=== PATIENT | male | born 1960 ===

== ENCOUNTER → 2020-09-15 12:45 | Outpatient (BNVA) | payer MEDICAID, SELFPAY | PROVIDERS: PCP Family Medicine; Referring Provider Family Medicine; Visit Provider Internal Medicine | DX: R07.2 Precordial pain (principal) | CPT/HCPCS: 93005; 99202 ==

== ENCOUNTER → 2020-09-18 10:59 | Outpatient (BNVA) | payer MEDICAID, SELFPAY | PROVIDERS: PCP Family Medicine; Referring Provider Family Medicine; Visit Provider Nurse Practitioner | DX: Z76.89 Persons encountering health services in other specified circumstances (principal) ==

== ENCOUNTER 2020-09-22 08:41 | Outpatient (REF) | payer MEDICAID, SELFPAY ==
[2020-09-22 09:29] LABS: MANUAL DIFF FLAG NO
[2020-09-22 09:30] LABS: Basophils Percent Auto 0.5 % (0-2); Eosinophils Absolute Auto 0.1 X10*3/uL (0.0-0.4); Hematocrit 47.9 % (42-52); Hemoglobin 15.6 g/dl (14.0-18.0); Imm Gran Abs Auto 0.02 X10*3/uL (0.00-0.03); Imm Gran Pct Auto 0.3 % (0.0-0.4); Lymphocytes Absolute Auto 2.3 X10*3/uL (1.2-4.9); Lymphocytes Percent Auto 35.8 % (20-40); Mean Corpuscular HGB Conc 32.6 g/dl (31.0-36.0); Mean Corpuscular Hemoglobin 30.1 pg (27.0-33.0); Mean Corpuscular Volume 92.5 fL (80-98); Mean Platelet Volume 12.7 fL (9.4-12.4); Monocytes Absolute Auto 0.6 X10*3/uL (0.1-1.2); Neutrophils Absolute Auto 3.4 X10*3/uL (2.0-8.3); Neutrophils Percent Auto 52.4 % (45-73); Platelet Count 176 X10*3/uL (160-400); Red Blood Count 5.18 X10*6/uL (4.60-5.80); White Blood Count 6.5 X10*3/uL (4.8-10.8)
[2020-09-22 09:51] LABS: Estimated Average Glucose 194 mg/dL; Hemoglobin A1c % 8.4 %
[2020-09-22 09:53] LABS: Ethanol < 10 mg/dL
[2020-09-22 09:56] LABS: Alanine Aminotransferase 70 U/L (0-40); Albumin Level 4.2 g/dL (3.5-5.0); Alkaline Phosphatase 61 U/L (39-117); Ammonia 24 umol/L (13-55); Anion Gap 11 (12-20); Aspartate Amino Transferase 46 U/L (5-37); Bilirubin Direct 0.3 mg/dL (0.0-0.5); Bilirubin Total 0.8 mg/dL (0.0-1.0); Blood Urea Nitrogen 18 mg/dL (9-16); Calcium 9.5 mg/dL (8.4-10.2); Carbon Dioxide 35 mmol/L (22-29); Chloride 97 mmol/L (96-108); Cholesterol 196 mg/dL; Estimated Glomerular Filt Rate 54; Glucose Random 199 mg/dL (60-115); HDL Cholesterol 36 mg/dL; Iron 93 mcg/dL (45-160); LDL Cholesterol Calculated 118 mg/dl; Percent Iron Saturation 25 % (15-50); Potassium 4.8 mmol/l (3.3-5.1); Sodium 138 mmol/L (135-145); Total Iron Binding Capacity 369 mcg/dL (228-428); Total Protein 8.4 g/dL (6.5-8.0); Triglycerides 214 mg/dL; Unsaturated Iron Binding 276 ug/dL
[2020-09-22 09:57] LABS: Alanine Aminotransferase 70 U/L (0-40); Albumin Level 4.2 g/dL (3.5-5.0); Alkaline Phosphatase 59 U/L (39-117); Anion Gap 12 (12-20); Aspartate Amino Transferase 45 U/L (5-37); Bilirubin Total 0.8 mg/dL (0.0-1.0); Blood Urea Nitrogen 18 mg/dL (9-16); Calcium 9.6 mg/dL (8.4-10.2); Carbon Dioxide 34 mmol/L (22-29); Chloride 97 mmol/L (96-108); Estimated Glomerular Filt Rate 54; Gamma Glutamyl Transpeptidase 96 U/L (11-51); Glucose Random 195 mg/dL (60-115); Potassium 4.8 mmol/l (3.3-5.1); Sodium 138 mmol/L (135-145); Total Protein 8.2 g/dL (6.5-8.0)
[2020-09-22 10:16] LABS: Free T4 (Free Thyroxine) 0.99 ng/dL (0.71-1.85); Vitamin D 25-OH Total 58.9 ng/mL (>30)
[2020-09-22 10:21] LABS: Ferritin 91 ng/mL (20-250)
[2020-09-22 10:29] LABS: Folate 15.6 ng/mL (> or = 4.0); Vitamin B12 410 pg/mL (200-900)
[2020-09-22 11:22] LABS: Creatinine Urine 373.94 mg/dL; Microalbum/Creatinine Ratio Ur 64.7 ug/mg cr
[2020-09-25 13:41] LABS: Anti Nuclear Antibody Pattern Nuclear, Speckled; Anti Nuclear Antibody Screen POSITIVE (NEGATIVE); Anti Nuclear Antibody Titer 1:40 titer
[2020-09-27 12:12] LABS: Smooth Muscle Antibody <20 U (<20)
[2020-09-28 14:47] LABS: Mitochondrial Antibodies NEGATIVE (NEGATIVE)
== END 2020-09-22 08:42 | disposition home or self-care (01) ==
LOC: HO.LAB 08:41
PROVIDERS: Absent Provider Nurse Practitioner; PCP Family Medicine; Visit Provider Family Medicine
DX: K59.00 Constipation, unspecified (principal); K76.0 Fatty (change of) liver, not elsewhere classified; F10.10 Alcohol abuse, uncomplicated; E11.22 Type 2 diabetes mellitus with diabetic chronic kidney disease; N18.9 Chronic kidney disease, unspecified; E78.5 Hyperlipidemia, unspecified; I10 Essential (primary) hypertension
CPT/HCPCS: 36415; 80048; 80053; 80061; 80076; 80320; 82043; 82105; 82140; 82248; 82306; 82607; 82728; 82746; 82977; 83036; 83540; 84439; 85025; 86038; 86039; 86255; 86256

== ENCOUNTER → 2020-10-07 08:23 | Outpatient (REF) | payer OTHER, MEDICAID, SELFPAY ==
--- NOTE | 2020-10-07 08:29 | CA_ITS ---
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 The visually estimated ejection fraction is between 60-65%. - No obvious valvular pathology seen on this study. Findings Left Ventricle Normal left ventricular cavity size. There is normal left ventricular wall thickness. The left ventricular systolic function is normal. The visually estimated ejection fraction is between 60-65%. There is no evidence of regional wall motion abnormalities. Diastolic function is normal for age. Right Ventricle Normal right ventricular cavity size and systolic function. Atria The left atrium is normal in size. The right atrium is normal in size. Aortic Valve There is a normal trileaflet aortic valve. There is no aortic valve stenosis. There is no aortic valve regurgitation. Mitral Valve The mitral valve appears normal. There is trace mitral valve regurgitation. There is no mitral valve stenosis. Pulmonic Valve The pulmonic valve was not well visualized. Tricuspid Valve Normal tricuspid valve structure. There is trace tricuspid valve regurgitation. The pulmonary artery systolic pressure is normal. Great Vessels The aortic annulus, sinuses of valsalva, and asc aorta are normal in size. Venous The inferior vena cava is normal in size and collapses greater than 50% with inspiration. Pericardium/Pleural There is no evidence of pericardial effusion. Prior Study Comparison No significant change compared to prior study dated: 05/22/2014. Recommendations, Care & Conclusions No obvious valvular pathology seen on this study. Measurements 2D Linear Measurements RVIDd: 3.29 RVIDd Index: 1.71 IVSd: 0.67 0.6-0.9/0.6-1.0 cm LVIDd: 4.99 3.9-5.3/4.2-5.9 cm LVIDd Index: 2.60 2.4-3.2/2.2-3.1 cm/m2 LVIDs: 3.24 2.0-3.6 cm LVPWd: 1.02 0.7-1.1 cm Ao Root: 3.00 2.1-3.5 cm LA Diam: 4.00 2.7-3.8/3.0-4.0 cm LAIDs Index: 2.08 1.5-2.3 cm/m2 LV Mass: 181.20 67-162/88-224 g LV Mass Index: 94.37 43-95/49-115 g/m2 LVOT Diam: 2.20 3.0+(-)1.3 cm 2D Systolic Function EF 4C: 66.20 >55% EF 2C: 58.40 >55% EF BiP: 63.50 >55% Mitral Valve MV Pk E: 0.75 MV PK A: 1.01 MV Decel Time: 197.00 E/A: 0.70 E'Lateral: 9.79 E'Medial: 7.40 E/E' Med: 10.10 E/E' Lat: 7.60 Aortic Valve AoV Pk Kartik: 1.45 AoV Mn Kartik: 1.11 AoV VTI: 0.29 AoV Pk Grad: 8.00 Aov Mn Grad: 5.00 SHYAM Cont.VTI: 2.88 LVOT LVOT Pk Kartik: 1.31 LVOT Mn Kartik: 0.81 LVOT VTI: 0.22 LVOT Pk Grad: 7.00 LVOT Mn Grad: 3.00 LVOT Diam: 2.20 LVOT Area: 3.80 Diastolic Function MV Pk E: 0.75 MV Pk A: 1.01 E/A: 0.70 E'Medial: 7.40 E/E' Med: 10.10 E' Laterial: 9.79 E/E' Lat: 7.60 Tricuspid Valve TR Pk Kartik: 2.71 TR Pk Grad: 29.00 RA Press: 3.00 RVSP: 32.00 Great Vessels Aorta Ao Root-2D: 3.00 2.0-3.7 cm Ao Asc: 2.90 2.1-3.4 cm Ao Arch: 2.80 Updated in Other Vendor System with Status of Final Danie Rosas MD electronically signed on 10/08/2020 12:54:32 PM with status of Final
--- NOTE | 2020-10-07 09:30 | CA_ITS ---
Acquisition Time: 2020-10-07 10:59:59 Total Exercise Time: 00:05:59 Test Indications: Chest Pain Medications: AMLODIPINE ASA ATORVASTATIN BACLOFEN HCTZ HYDROXIZINE METOPROLOL OMEPRAZOLE Protocol: JANEL Max HR: 142 BPM 88% of Pred: 161 BPM Max BP: 140/076 mmHG Max Work Load: 7.0 METS Exercise stress test using Janel protocol, total of 5 min 59 sec. METS 7.0, MHR up to 142, and MAPHR 88%. Pt tolerated well, denies any anginal sx. EKG with no arrhythmias, no ischemic changes. Nuclear images to follow. Normotensive response to exercise. Test reviewed with Dr. Rosas. Referred By: Danie Rosas Overread By: Lucia Kelley
--- NOTE | 2020-10-07 09:54 | NM_ITS ---
Exercise Myocardial perfusion study Indication: Precordial chest pain Technique: The patient was brought in for an exercise perfusion study on 06/2020. Patient performed exercise as per Demetrio protocol and was injected 25 mCi of sestamibi was given intravenously one target HR was achieved. Images were obtained using the SPECT gamma camera interlaced with the gating device. Images were obtained in supine position. Resting perfusion study was performed on 10/08/2020. Patient was administered 25 mCi of sestamibi intravenously at rest. Images were then obtained in supine position. Images obtained with and without CT attenuation. Total DLP 57 mGy-cm. Images were processed with the software and compared side to side in short axis, horizontal long axis and vertical long axis views. Findings: The stress perfusion study showed non attenuated images show normal uptake of radiotracer in all segments of LV myocardium. Attenuation corrected images show mildly reduced uptake in the apex of the LV myocardium.. The gated study shows normal LV systolic function with calculated LVEF of 74%. LV cavity is normal in size. The gated study shows normal systolic wall thickening and contraction of all segments. There is no transient ischemic dilation. Resting study shows non attenuated images show normal uptake of radiotracer in all segments of LV myocardium. Gating at rest reveals normal systolic wall motion with ejection fraction at 64%. The findings are consistent with normal myocardial perfusion. NM/NM cardiolite stress test Impression: 1. Normal myocardial perfusion 2. Gated LVEF is 64% 3. Transient ischemic dilatation not present Stress EKG is negative for ischemia
== END ==
LOC: HO.CARD 08:23
PROVIDERS: PCP Family Medicine; Visit Provider Internal Medicine
DX: R07.2 Precordial pain (principal)
CPT/HCPCS: 78452; 93017; 93306; A9500

== ENCOUNTER → 2020-10-09 11:10 | Outpatient (BNVA) | payer MEDICAID, SELFPAY | PROVIDERS: PCP Family Medicine; Visit Provider Nurse Practitioner | DX: Z76.89 Persons encountering health services in other specified circumstances (principal) ==

== ENCOUNTER 2020-10-12 12:37 | Emergency (ER) | payer OTHER, MEDICAID, SELFPAY ==
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
[2020-10-12 13:37] VITALS: BP 122/77; PULSE 66; RESP 16; TEMP 36.6; O2SAT 97; BMI 28.1
== END 2020-10-12 15:55 | disposition home or self-care (01) ==
PROVIDERS: Emergency Provider Emergency Medicine; PCP Family Medicine
DX: S13.4XXA Sprain of ligaments of cervical spine, initial encounter (principal); S16.1XXA Strain of muscle, fascia and tendon at neck level, initial encounter; V43.52XA Car driver injured in collision with other type car in traffic accident, initial encounter; E11.22 Type 2 diabetes mellitus with diabetic chronic kidney disease; I12.9 Hypertensive chronic kidney disease with stage 1 through stage 4 chronic kidney disease, or unspecified chronic kidney disease; N18.9 Chronic kidney disease, unspecified; Z79.899 Other long term (current) drug therapy; Y93.89 Activity, other specified; Y92.414 Local residential or business street as the place of occurrence of the external cause; Y99.9 Unspecified external cause status
CPT/HCPCS: 70450; 72125; 99283; 99284

== ENCOUNTER 2020-10-14 12:05 | Outpatient (REF) | payer MEDICAID, SELFPAY ==
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
== END 2020-10-14 12:06 | disposition home or self-care (01) ==
LOC: HO.XRAY 12:05
PROVIDERS: PCP Family Medicine; Visit Provider Chiropractor
DX: M54.5 Low back pain (principal); V89.2XXD Person injured in unspecified motor-vehicle accident, traffic, subsequent encounter
CPT/HCPCS: 72100

== ENCOUNTER 2020-11-30 09:45 | Outpatient (REF) | payer MEDICAID, SELFPAY | END 2020-11-30 09:46 | disposition home or self-care (01) | LOC: HO.LAB 09:45 | PROVIDERS: PCP Family Medicine; Visit Provider Internal Medicine | DX: Z20.822 Contact with and (suspected) exposure to COVID-19 (principal) | CPT/HCPCS: 36415; C9803; U0003; U0005 ==

== ENCOUNTER 2020-12-14 09:26 | Outpatient (REF) | payer MEDICAID, SELFPAY | END 2020-12-14 09:27 | disposition home or self-care (01) | LOC: HO.LAB 09:26 | PROVIDERS: PCP Family Medicine; Visit Provider Internal Medicine | DX: Z20.822 Contact with and (suspected) exposure to COVID-19 (principal) | CPT/HCPCS: 36415; C9803; U0003; U0005 ==

== ENCOUNTER 2021-04-27 08:27 | Emergency (ER) | payer MEDICAID, SELFPAY ==
--- NOTE | ~2021-04-27 | CT_ITS ---
EXAMINATION: CT CHEST WITHOUT CONTRAST CLINICAL INFORMATION: Abnormal chest x-ray. Rule out postobstructive mass. COMPARISON: Previous chest x-ray from earlier the same day and chest CTA August 2014 TECHNIQUE: Multidetector volumetric CT imaging of the chest was done. Axial MIP volume rendering provided. Sagittal and coronal reformatted images were obtained. Images limited due to artifact from respiratory motion. This CT examination was performed using dose optimization techniques as appropriate, variously including the following: *Automated exposure control *Adjustment of mA and/or kV according to patient size (this includes techniques or standardized protocols for targeted exams where dose is matched to indication/reason for exam; i.e. extremities or head) *Use of iterative reconstruction technique DLP: 254 mGy-cm FINDINGS: LUNGS: There is consolidation with air bronchograms seen in the right upper lobe probably representing pneumonia. No endobronchial or endotracheal lesion is seen. MEDIASTINUM: There are small mediastinal lymph nodes. No enlarged lymph nodes are seen. There is an esophageal hernia. The mediastinum is otherwise normal. PLEURA: There is a trace right pleural effusion. There is no left pleural effusion. AXILLA: No lymphadenopathy. UPPER ABDOMEN: There is a gallstone in the gallbladder. The spleen is not completely imaged but appears prominent. OSSEOUS STRUCTURES: Unremarkable. CT/CT chest wo con IMPRESSION: Right upper lobe pneumonia. No mass seen. Chest x-ray follow-up following treatment to ensure resolution recommended.
--- NOTE | ~2021-04-27 | XR_ITS ---
EXAMINATION: XR CHEST CLINICAL INFORMATION: Fever and pain COMPARISON: Previous chest x-ray July 2019 TECHNIQUE: 2 views of the chest were obtained. FINDINGS: The cardiac and mediastinal contours are normal. There is airspace disease in the right upper lobe probably representing pneumonia. The lungs are otherwise clear. There is no pleural effusion or pneumothorax. Bony structures are unremarkable. XR/XR chest 2V IMPRESSION: Right upper lobe pneumonia. Follow-up chest x-ray following treatment to ensure resolution recommended.
[2021-04-27 08:44] VITALS: BP 154/74; PULSE 92; RESP 16; TEMP 37.3; O2SAT 97
[2021-04-27 08:50] VITALS: BP 126/75; PULSE 85; RESP 17; TEMP 39.2; O2SAT 99
[2021-04-27 09:04] VITALS: BP 136/79; PULSE 84; RESP 16; TEMP 38.6; O2SAT 100; BMI 24.8
--- NOTE | 2021-04-27 09:50 | ED.GENADULT ---
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 No abdominal pain, cough, shortness of breath, chest pain, neck pain, rash. No sick contact. No recent travel. Received 5 [employer] 19 vaccine x2 in february Related Data Home Medications Medication Instructions Recorded Confirmed acetaminophen 500 mg tablet 1,000 mg PO Q6H PRN 09/15/20 09/15/20 acetaminophen 650 mg 650 mg PO Q8H 09/15/20 09/15/20 tablet,extended release amlodipine 10 mg tablet 10 mg PO DAILY 09/15/20 09/15/20 aspirin 81 mg tablet,delayed 81 mg PO DAILY 09/15/20 09/15/20 release atorvastatin 80 mg tablet 80 mg PO DAILY 09/15/20 09/15/20 baclofen 10 mg tablet 10 mg PO TID 09/15/20 09/15/20 baclofen 10 mg tablet 10 mg PO TID 09/15/20 09/15/20 cholecalciferol (vitamin D3) 25 25 mcg PO DAILY 09/15/20 09/15/20 mcg (1,000 unit) capsule clonazepam 0.5 mg tablet 0.5 mg PO BID 09/15/20 09/15/20 clotrimazole 1 % topical cream 1 applic TOPICAL BID 09/15/20 09/15/20 docusate sodium 100 mg capsule 100 mg PO BID 09/15/20 09/18/20 ferrous sulfate 325 mg (65 mg 325 mg PO DAILY 09/15/20 09/15/20 iron) tablet fluoxetine 20 mg capsule 60 mg PO DAILY cap 09/15/20 09/15/20 gabapentin 100 mg capsule 100 mg PO DAILY 09/15/20 09/15/20 hydrochlorothiazide 25 mg tablet 25 mg PO DAILY 09/15/20 09/15/20 hydroxyzine HCl 25 mg tablet 25 mg PO QID PRN 09/15/20 09/15/20 insulin glargine 100 unit/mL (3 30 unit SUBCUT DAILY ml 09/15/20 09/15/20 mL) subcutaneous pen metoprolol succinate 200 mg 200 mg PO DAILY 09/15/20 09/15/20 tablet,extended release 24 hr olanzapine 5 mg tablet 5 mg PO DAILY 09/15/20 09/15/20 repaglinide 1 mg tablet 1 mg PO TID 09/15/20 09/15/20 sildenafil 50 mg tablet 25 mg PO DAILY PRN tab 09/15/20 09/15/20 tamsulosin 0.4 mg capsule 0.4 mg PO DAILY 09/15/20 09/15/20 Previous Rx's Medication Instructions Recorded acetaminophen [Tylenol Arthritis 650 mg PO Q8H PRN #30 tab 10/12/20 Pain] ibuprofen 600 mg PO Q8H PRN #15 tab 10/12/20 lidocaine [Lidoderm] 1 patch TOPICAL DAILY #15 ea 10/12/20 omeprazole 40 mg capsule,delayed 40 mg PO BID #60 cap 11/16/20 release linaclotide 72 mcg capsule 72 mcg PO QAM #30 cap 02/04/21 azithromycin 250 mg PO DAILY #4 tab 04/27/21 cefpodoxime 100 mg PO BID #14 tab 04/27/21 Allergies Allergy/AdvReac Type Severity Reaction Status Date / Time No Known Allergies Allergy Verified 10/09/20 11:11 [No Known Allergies*] Review of Systems Review of Systems: Yes all other systems are reviewed and are negative Constitutional: Constitutional: Reports no additional constitutional complaints, Denies body ache(s), Denies chills, Denies fever(s), Denies headache(s) and Denies weakness Eyes: Eyes: Reports no additional eye complaints and Denies change in vision ENT: Reports system reviewed and no additional complaints, except as documented, Denies dizziness, Denies headache(s), Denies nasal congestion, Denies nasal discharge and Denies neck pain Cardiovascular: Cardiovascular: Reports no additional cardiovascular complaints, Denies chest pain, Denies leg edema and Denies dyspnea Respiratory: Respiratory: Reports no additional respiratory complaints, Denies cough and Denies dyspnea Gastrointestinal: Gastrointestinal: Reports no additional gastrointestinal complaints, Denies abdominal pain, Denies diarrhea, Denies nausea and Denies vomiting Genitourinary: Genitourinary: Denies urinary incontinence Musculoskeletal: Musculoskeletal: Reports no additional musculoskeletal complaints, Denies back pain, Denies arthralgias, Denies joint swelling, Denies neck pain, Denies numbness and Denies tingling Integumentary/Breasts: Skin/Breast: Reports system reviewed and no additional complaints, except as docu and Denies rash Neurologic: Reports system reviewed and no additional complaints, except as documented, Denies Abnormal speech present, Denies dizziness, Denies headache(s), Denies numbness, Denies tingling and Denies weakness PMF Past Medical History Attestation statement: The following information was validated with the patient. Source: old records reviewed and nursing notes reviewed Medical History CKD (chronic kidney disease) Depression Essential hypertension Hyperlipidemia, unspecified MICH (obstructive sleep apnea) Substance abuse Syphilis Type 2 diabetes mellitus with unspecified complications Surgical History Hx of colonoscopy Hx of foot surgery Family History Family History Mother Diabetes CAD (coronary artery disease) Hypertension Hyperlipidemia MICH (obstructive sleep apnea) Heart problem Father Alzheimer disease Depression Maternal Grandmother Heart problem Social History Social History Alcohol intake: current Alcohol intake frequency: does not drink Advance Directives: No Advance Directives Information Provided: No Physical Exam Vital Signs: Vital Signs: Last Vital Signs Temp 99.8 F 04/27/21 12:00 Pulse 78 04/27/21 12:00 Resp 16 04/27/21 12:00 BP 128/64 04/27/21 12:00 Pulse Ox 100 04/27/21 12:00 Body Mass Index 24.8 Const: General: cooperative, healthy appearing, comfortable and no acute distress Orientation/consciousness: patient oriented x3 Limitations: no limitations HENMT: Head: Yes normal to inspection Ears: hearing grossly normal bilaterally General nose exam: Normal external nose present Face and sinus: Yes normal facial exam Mouth: Normal oral and palatal mucosa present Throat: Yes posterior oropharynx normal Eyes: General: appearance normal, both eyes and all related structures Pupils: Equal, round and reactive pupils present Neck: Neck: Yes normal visual inspection Chest: Chest palpation & inspection: normal inspection of the chest Resp: Effort & Inspection: normal respiratory effort Auscultation: clear to auscultation bilaterally Cardio: Rate: regular rate Rhythm: regular rhythm Peripheral pulses: Peripheral pulses 2+ throughout GI: Inspection: Yes normal to inspection Palpation (GI): Soft to palpation and nontender Auscultation: normal bowel sounds Back/Spine/Pelvis: Thoracic/Lumbar Spine: thoracic and lumbar spine normal to inspection Skin: General skin exam: no rashes or lesions noted Neuro: General: patient oriented x3, no focal motor deficits and normal sensation to monofilament Cranial nerves: Yes Equal, round and reactive pupils present Cognition (Neuro): normal cognition Speech: No Abnormal speech present Gait exam (Neuro): Normal gait present Motor exam (neuro): 5/5 motor strength present throughout Extrem: General: Yes normal to inspection Course Course Course Narrative: 60-year-old male here with flu-like symptoms with fever of 102 x3 days. On arrival he does have a fever but otherwise is well-appearing exam is benign. Likely viral cause. Will check labs, chest x-ray, EKG, COVID screen. will place PIV and give normal saline bolus and antipyretic and reassess. 0950- x-ray consistent with a right upper lobe pneumonia. At this time infection is suspected. Antibiotics ordered. Discussed this with attending Dr. Munoz. Patient does have a history of alcohol abuse. Consider aspiration pneumonia. However could also consider postobstructive mass and so a CT of the chest was ordered - CT chest confirms right upper lobe pneumonia with no obvious mass. Patient ambulated in the emergency department with oxygen saturation >99%. he has no leukocytosis and a normal lactic acid. Additional labs show mild hyponatremia, mild hypochloremia, mild hypokalemia. He received normal saline and p.o. potassium. I recommended rechecking his chemistries but the patient declined this and would like to go home. His fever improved with antipyretic and normal saline. Reviewed worrisome signs and symptoms such as worsening shortness of breath, cough, fever which is not responding Motrin or Tylenol when to return to the emergency department. Comfortable discharge home. Medical Decision Making Medical Records Medical records reviewed: Yes I reviewed the patient's medical records. Lab Data Lab results reviewed: Yes I reviewed the patient's lab results. Result diagrams: 04/27/21 09:48 04/27/21 09:48 Labs: Lab Results 04/27/21 04/27/21 04/27/21 Range/Units 09:47 09:48 09:48 WBC 6.3 (4.8-10.8) X10*3/uL RBC 4.30 L (4.60-5.80) X10*6/uL Hgb 13.0 L (14.0-18.0) g/dl Hct 38.7 L (42-52) % MCV 90.0 (80-98) fL MCH 30.2 (27.0-33.0) pg MCHC 33.6 (31.0-36.0) g/dl RDW 14.7 (11.0-16.0) % Plt Count 91 L D (160-400) X10*3/uL MPV 12.1 (9.4-12.4) fL Immature Gran % (Auto) 0.5 H (0.0-0.4) % Neut % (Auto) 76.4 H (45-73) % Lymph % (Auto) 10.7 L (20-40) % [place] % (Auto) 12.2 H (2-11) % Eos % (Auto) 0.0 (0-4) % Baso % (Auto) 0.2 (0-2) % Lymph # (Auto) 0.7 L (1.2-4.9) X10*3/uL [place] # (Auto) 0.8 (0.1-1.2) X10*3/uL Eos # (Auto) 0.0 (0.0-0.4) X10*3/uL Baso # (Auto) 0.0 (0.0-0.2) X10*3/uL Abs Immat Gran (auto) 0.03 (0.00-0.03) X10*3/uL Absolute Neuts (auto) 4.8 (2.0-8.3) X10*3/uL Absolute Nucleated RBC 0.000 (0.0-0.012) X10*3/uL Nucleated RBC % (auto) 0.0 (0.0-0.2) /100WBC Hold Blue Top SEE NOTE Sodium (135-145) mmol/L Potassium (3.3-5.1) mmol/L Chloride (96-108) mmol/L Carbon Dioxide (22-29) mmol/L Anion Gap (12-20) BUN (9-16) mg/dL Creatinine (0.5-1.4) mg/dL Estim Creat Clear Calc Estimated GFR Random Glucose (60-115) mg/dL Lactic Acid (0.5-2.0) mmol/L Calcium (8.4-10.2) mg/dL Magnesium (1.6-2.6) mg/dL Total Bilirubin (0.0-1.0) mg/dL Direct Bilirubin (0.0-0.5) mg/dL AST (5-37) U/L ALT (0-40) U/L Alkaline Phosphatase (39-117) U/L Total Protein (6.5-8.0) g/dL Albumin (3.5-5.0) g/dL Triglycerides Cholesterol LDL Cholesterol, Calc HDL Cholesterol Lipase (8-78) U/L Urine Color Urine Appearance Urine pH (5.0-8.0) Ur Specific [place] (1.005-1.025) Urine Protein (NEG-TRACE) MG/DL Urine Glucose (UA) (NEG) MG/DL Urine Ketones (NEG) MG/DL Urine Blood (NEG) Urine Nitrite (NEG) Ur Leukocyte Esterase (NEG) Urine RBC (0) /HPF Urine WBC (0-4) /HPF Ur Squamous Epith Cells /LPF Urine Bacteria /LPF Urine Mucus /LPF COVID-19 ([facility]) Negative (Negative) COVID-19 Clin Com See Note 04/27/21 04/27/21 04/27/21 Range/Units 09:48 09:49 09:50 WBC (4.8-10.8) X10*3/uL RBC (4.60-5.80) X10*6/uL Hgb (14.0-18.0) g/dl Hct (42-52) % MCV (80-98) fL MCH (27.0-33.0) pg MCHC (31.0-36.0) g/dl RDW (11.0-16.0) % Plt Count (160-400) X10*3/uL MPV (9.4-12.4) fL Immature Gran % (Auto) (0.0-0.4) % Neut % (Auto) (45-73) % Lymph % (Auto) (20-40) % [place] % (Auto) (2-11) % Eos % (Auto) (0-4) % Baso % (Auto) (0-2) % Lymph # (Auto) (1.2-4.9) X10*3/uL [place] # (Auto) (0.1-1.2) X10*3/uL Eos # (Auto) (0.0-0.4) X10*3/uL Baso # (Auto) (0.0-0.2) X10*3/uL Abs Immat Gran (auto) (0.00-0.03) X10*3/uL Absolute Neuts (auto) (2.0-8.3) X10*3/uL Absolute Nucleated RBC (0.0-0.012) X10*3/uL Nucleated RBC % (auto) (0.0-0.2) /100WBC Hold Blue Top Sodium 129 L (135-145) mmol/L Potassium 3.1 L (3.3-5.1) mmol/L Chloride 93 L (96-108) mmol/L Carbon Dioxide 26 (22-29) mmol/L Anion Gap 13 (12-20) BUN 15 (9-16) mg/dL Creatinine 1.28 (0.5-1.4) mg/dL Estim Creat Clear Calc 58.0 Estimated GFR 58 Random Glucose 261 H (60-115) mg/dL Lactic Acid 1.4 (0.5-2.0) mmol/L Calcium 8.4 D (8.4-10.2) mg/dL Magnesium 1.9 (1.6-2.6) mg/dL Total Bilirubin 1.5 H (0.0-1.0) mg/dL Direct Bilirubin 0.6 H (0.0-0.5) mg/dL AST 32 (5-37) U/L ALT 18 (0-40) U/L Alkaline Phosphatase 50 (39-117) U/L Total Protein 6.9 (6.5-8.0) g/dL Albumin 3.7 (3.5-5.0) g/dL Triglycerides Cancelled Cholesterol Cancelled LDL Cholesterol, Calc Cancelled HDL Cholesterol Cancelled Lipase 29 (8-78) U/L Urine Color YELLOW Urine Appearance CLEAR Urine pH 6.0 (5.0-8.0) Ur Specific [place] 1.025 (1.005-1.025) Urine Protein 2+ H (NEG-TRACE) MG/DL Urine Glucose (UA) >=1000 H (NEG) MG/DL Urine Ketones 15 (NEG) MG/DL Urine Blood 2+ H (NEG) Urine Nitrite NEG (NEG) Ur Leukocyte Esterase NEG (NEG) Urine RBC 5-9 H (0) /HPF Urine WBC 0 (0-4) /HPF Ur Squamous Epith Cells NONE /LPF Urine Bacteria NONE /LPF Urine Mucus 2+ /LPF COVID-19 ([facility]) (Negative) COVID-19 Clin Com Imaging Data Chest x-ray: Attestation: I personally reviewed and interpreted this imaging study as follows: Radiologist's impression: [address] [id number] ReportSigned Patient: Pablito WildeMR#: [id number]: [id number]:[id number]/Sex: 60 / MADM Date: 04/27/21Loc: HO.EDAttending Dr: Ordering Physician: VIJI CROWELL NP Date of Service: 04/27/21 Procedure(s): XR chest 2V Accession Number(s): [id number] cc: VIJI CROWELL NP~ EXAMINATION: XR CHEST CLINICAL INFORMATION: Fever and pain COMPARISON: Previous chest x-ray July 2019 TECHNIQUE: 2 views of the chest were obtained. FINDINGS: The cardiac and mediastinal contours are normal. There is airspace disease in the right upper lobe probably representing pneumonia. The lungs are otherwise clear. There is no pleural effusion or pneumothorax. Bony structures are unremarkable. XR/XR chest 2V IMPRESSION: Right upper lobe pneumonia. Follow-up chest x-ray following treatment to ensure resolution recommended. CT scan - chest: Attestation: I personally reviewed and interpreted this imaging study as follows: Radiologist's impression: FINDINGS: LUNGS: There is consolidation with air bronchograms seen in the right upper lobe probably representing pneumonia. No endobronchial or endotracheal lesion is seen. MEDIASTINUM: There are small mediastinal lymph nodes. No enlarged lymph nodes are seen. There is an esophageal hernia. The mediastinum is otherwise normal. PLEURA: There is a trace right pleural effusion. There is no left pleural effusion. AXILLA: No lymphadenopathy. UPPER ABDOMEN: There is a gallstone in the gallbladder. The spleen is not completely imaged but appears prominent. OSSEOUS STRUCTURES: Unremarkable. CT/CT chest wo con IMPRESSION: Right upper lobe pneumonia. No mass seen. Chest x-ray follow-up following treatment to ensure resolution recommended. Discharge Plan Discharge Clinical Impression: Pneumonia Patient Disposition: Home, Self-Care Instructions: Bacterial Pneumonia (ED) Additional Instructions: Start your antibiotics tomorrow increase fluids, rest Motrin or Tylenol for pain or fever return for worsening symptoms Prescriptions: New azithromycin 250 mg tablet 250 mg PO DAILY Qty: 4 RF: 0 cefpodoxime 100 mg tablet 100 mg PO BID Qty: 14 RF: 0 No Action omeprazole 40 mg capsule,delayed release(DR/EC) 40 mg PO BID Qty: 60 RF: 6 linaclotide [Linzess] 72 mcg capsule 72 mcg PO QAM Qty: 30 RF: 2 ibuprofen 600 mg tablet 600 mg PO Q8H PRN (Reason: pain) Qty: 15 RF: 0 acetaminophen [Tylenol Arthritis Pain] 650 mg tablet extended release 650 mg PO Q8H PRN (Reason: pain) Qty: 30 RF: 0 lidocaine [Lidoderm] 5 % adhesive patch,medicated 1 patch topical DAILY Qty: 15 RF: 0 olanzapine 5 mg tablet 5 mg PO DAILY RF: 0 clonazepam [Klonopin] 0.5 mg tablet 0.5 mg PO BID RF: 0 hydroxyzine HCl 25 mg tablet 25 mg PO QID PRNRF: 0 fluoxetine 20 mg capsule 60 mg PO DAILY RF: 0 sildenafil [Viagra] 50 mg tablet 25 mg PO DAILY PRNRF: 0 atorvastatin [Lipitor] 80 mg tablet 80 mg PO DAILY RF: 0 acetaminophen 650 mg tablet extended release 650 mg PO Q8H RF: 0 repaglinide [Prandin] 1 mg tablet 1 mg PO TID RF: 0 tamsulosin [Flomax] 0.4 mg capsule 0.4 mg PO DAILY RF: 0 gabapentin 100 mg capsule 100 mg PO DAILY RF: 0 cholecalciferol (vitamin D3) 25 mcg (1,000 unit) capsule 25 mcg PO DAILY RF: 0 acetaminophen [Mapap Extra Strength] 500 mg tablet 1,000 mg PO Q6H PRNRF: 0 baclofen 10 mg tablet 10 mg PO TID RF: 0 baclofen 10 mg tablet 10 mg PO TID RF: 0 clotrimazole 1 % cream 1 applic topical BID RF: 0 amlodipine [Norvasc] 10 mg tablet 10 mg PO DAILY RF: 0 Lantus Solostar U-100 Insulin 100 unit/mL (3 mL) insulin pen 30 unit subcut DAILY RF: 0 docusate sodium [Colace] 100 mg capsule 100 mg PO BID RF: 0 hydrochlorothiazide 25 mg tablet 25 mg PO DAILY RF: 0 aspirin 81 mg tablet,delayed release (DR/EC) 81 mg PO DAILY RF: 0 metoprolol succinate [Toprol XL] 200 mg tablet extended release 24 hr 200 mg PO DAILY RF: 0 ferrous sulfate 325 mg (65 mg iron) tablet 325 mg PO DAILY RF: 0 Referrals: Trinidad Briceño DO [Primary Care Provider] - 2 days Interventions: ED Discharge Assessment Last Done: 04/27/21 14:13 Discharge Date/Time: 04/27/21 14:13 Print Language: Chadian
[2021-04-27 09:56] VITALS: BP 124/75; PULSE 84
[2021-04-27] MEDS: 0.9 % Sodium Chloride 1,000 ML 999 ML IV (09:56)
[2021-04-27 10:02] LABS: MANUAL DIFF FLAG NO
[2021-04-27 10:05] LABS: Basophils Percent Auto 0.2 % (0-2); Hematocrit 38.7 % (42-52); Imm Gran Abs Auto 0.03 X10*3/uL (0.00-0.03); Imm Gran Pct Auto 0.5 % (0.0-0.4); Lymphocytes Absolute Auto 0.7 X10*3/uL (1.2-4.9); Lymphocytes Percent Auto 10.7 % (20-40); Mean Corpuscular HGB Conc 33.6 g/dl (31.0-36.0); Mean Corpuscular Hemoglobin 30.2 pg (27.0-33.0); Mean Platelet Volume 12.1 fL (9.4-12.4); Monocytes Absolute Auto 0.8 X10*3/uL (0.1-1.2); Monocytes Percent Auto 12.2 % (2-11); Neutrophils Absolute Auto 4.8 X10*3/uL (2.0-8.3); Neutrophils Percent Auto 76.4 % (45-73); Red Cell Distribution Width 14.7 % (11.0-16.0); White Blood Count 6.3 X10*3/uL (4.8-10.8)
[2021-04-27 10:16] LABS: Glucose Urine UA >=1000 MG/DL (NEG); Leukocyte Esterase Urine NEG (NEG); Nitrite Urine NEG (NEG); Specific Gravity - Urine 1.025 (1.005-1.025); Urine Blood 2+ (NEG); Urine Ketones 15 MG/DL (NEG); Urine Protein 2+ MG/DL (NEG-TRACE)
[2021-04-27] MEDS: Acetaminophen 325 MG TABLET 650 MG PO (10:16)
[2021-04-27 10:20] LABS: Appearance Urine CLEAR; Color Urine YELLOW
[2021-04-27 10:24] LABS: Lactic Acid 1.4 mmol/L (0.5-2.0)
[2021-04-27 10:26] LABS: COVID-19 Test Negative (Negative); IDNOW Serial# 9DD0AD1C
[2021-04-27 10:27] LABS: Mucus Urine 2+ /LPF; WBC Urine 0 /HPF (0-4)
[2021-04-27 10:40] LABS: Alanine Aminotransferase 18 U/L (0-40); Albumin Level 3.7 g/dL (3.5-5.0); Alkaline Phosphatase 50 U/L (39-117); Anion Gap 13 (12-20); Aspartate Amino Transferase 32 U/L (5-37); Bilirubin Direct 0.6 mg/dL (0.0-0.5); Bilirubin Total 1.5 mg/dL (0.0-1.0); Blood Urea Nitrogen 15 mg/dL (9-16); Calcium 8.4 mg/dL (8.4-10.2); Carbon Dioxide 26 mmol/L (22-29); Chloride 93 mmol/L (96-108); Estimated Glomerular Filt Rate 58; Glucose Random 261 mg/dL (60-115); Lipase 29 U/L (8-78); Potassium 3.1 mmol/L (3.3-5.1); Sodium 129 mmol/L (135-145); Total Protein 6.9 g/dL (6.5-8.0)
[2021-04-27 10:41] VITALS: BP 122/75; PULSE 81; RESP 17; TEMP 37.8; O2SAT 97
[2021-04-27] MEDS: Potassium Chloride ER 20 MEQ TAB.ER.PRT 60 MEQ PO (10:58)
[2021-04-27 11:06] LABS: Magnesium 1.9 mg/dL (1.6-2.6)
[2021-04-27 11:33] LABS: Platelet Count 91 X10*3/uL (160-400)
[2021-04-27 12:00] VITALS: BP 128/64; PULSE 78; RESP 16; TEMP 37.7; O2SAT 100
[2021-04-27] MEDS: cefTRIAXone sodium 1 GM in 0.9 % Sodium Chloride 50 ML IV (12:42)
[2021-04-27] MEDS: Azithromycin 500 MG in 0.9 % Sodium Chloride 250 ML 125 MG IV (12:43)
== END 2021-04-27 14:13 | disposition home or self-care (01) ==
PROVIDERS: Nurse Practitioner Family; Emergency Provider Emergency Medicine Emergency Medical Services; PCP Family Medicine
DX: J18.9 Pneumonia, unspecified organism (principal); E87.1 Hypo-osmolality and hyponatremia; E87.8 Other disorders of electrolyte and fluid balance, not elsewhere classified; E87.6 Hypokalemia; I12.9 Hypertensive chronic kidney disease with stage 1 through stage 4 chronic kidney disease, or unspecified chronic kidney disease; E11.22 Type 2 diabetes mellitus with diabetic chronic kidney disease; N18.9 Chronic kidney disease, unspecified; K75.81 Nonalcoholic steatohepatitis (NASH); F10.11 Alcohol abuse, in remission; Z79.4 Long term (current) use of insulin; Z79.82 Long term (current) use of aspirin; Z79.899 Other long term (current) drug therapy; Z20.822 Contact with and (suspected) exposure to COVID-19
CPT/HCPCS: 36415; 71046; 71250; 80048; 80076; 81001; 83605; 83690; 83735; 85025; 87040; 87635; 96361; 96365; 96368; 99284; J0456; J0696

== ENCOUNTER 2021-05-28 11:20 | Outpatient (REF) | payer MEDICAID, SELFPAY ==
--- NOTE | 2021-05-28 | PFT_ITS ---
INDICATION: Shortness of breath. SPIROMETRY: The FEV1 to FVC 82% with an FEV1 of 3.53 L which is 109% predicted and FVC of 4.29 L, which is 101% predicted. No significant response to bronchodilators noted. Maximum voluntary ventilation 98% predicted. LUNG VOLUMES: Total lung capacity 92% predicted with a diffusion capacity of 81% predicted. COMPARISONS: None. INTERPRETATION: No obstructive nor restrictive ventilatory defects have been identified. No significant response to bronchodilators noted. Normal maximum voluntary ventilation. Lung volumes are within normal limits. The patient has a low normal diffusion capacity. If asthma is in the differential, methacholine challenge may be helpful in assessing for hyper-reactive airways, otherwise no clear findings in this study to explain the patient's symptoms of dyspnea. Clinical correlation warranted. Franko Carrillo MD MR/MODL / [id number]
== END 2021-05-28 11:21 | disposition home or self-care (01) ==
LOC: HO.RESP 11:20
PROVIDERS: PCP Family Medicine; Visit Provider Nurse Practitioner
DX: R06.02 Shortness of breath (principal)
CPT/HCPCS: 94060; 94727; 94729

== ENCOUNTER 2022-08-26 13:59 | Outpatient (REF) | payer MEDICAID, SELFPAY ==
--- NOTE | ~2022-08-26 | XR_ITS ---
EXAMINATION: XR HAND, RIGHT CLINICAL INFORMATION: Pain. COMPARISON: Radiographs dated 12/20/2019. TECHNIQUE: PA, lateral, and oblique views of the right hand. FINDINGS: The bones and soft tissues are normal. No fracture. Alignment is anatomic. Joint spaces are maintained. No erosions or soft tissue calcifications. XR/XR hand RT min 3V IMPRESSION: Normal right hand. EXAMINATION: XR HAND, LEFT CLINICAL INFORMATION: Pain. COMPARISON: Radiographs dated 12/20/2019. TECHNIQUE: PA, lateral, and oblique views of the left hand. FINDINGS: The bones and soft tissues are normal. No acute fracture or dislocation is seen. There is an old, healed fracture of the fifth metacarpal shaft.. Alignment is anatomic. Joint spaces are maintained. No erosions or soft tissue calcifications. IMPRESSION: Normal left hand.
--- NOTE | ~2022-08-26 | XR_ITS ---
EXAMINATION: XR HAND, RIGHT CLINICAL INFORMATION: Pain. COMPARISON: Radiographs dated 12/20/2019. TECHNIQUE: PA, lateral, and oblique views of the right hand. FINDINGS: The bones and soft tissues are normal. No fracture. Alignment is anatomic. Joint spaces are maintained. No erosions or soft tissue calcifications. XR/XR hand LT min 3V IMPRESSION: Normal right hand. EXAMINATION: XR HAND, LEFT CLINICAL INFORMATION: Pain. COMPARISON: Radiographs dated 12/20/2019. TECHNIQUE: PA, lateral, and oblique views of the left hand. FINDINGS: The bones and soft tissues are normal. No acute fracture or dislocation is seen. There is an old, healed fracture of the fifth metacarpal shaft.. Alignment is anatomic. Joint spaces are maintained. No erosions or soft tissue calcifications. IMPRESSION: Normal left hand.
--- NOTE | ~2022-08-26 | XR_ITS ---
EXAMINATION: XR KNEE, RIGHT CLINICAL INFORMATION: Pain. COMPARISON: Radiographs dated 12/11/2017. TECHNIQUE: AP, lateral and sunrise views of the right knee. FINDINGS: Bones and soft tissues are normal. No fracture or joint effusion. Alignment is anatomic. Joint spaces are well maintained. No abnormal soft tissue calcification. XR/XR knee RT 3V IMPRESSION: Normal right knee. EXAMINATION: XR KNEE, LEFT CLINICAL INFORMATION: Pain. COMPARISON: Radiographs dated 12/11/2017. TECHNIQUE: AP, lateral and sunrise views of the left knee. FINDINGS: Bones and soft tissues are normal. No fracture or joint effusion. Alignment is anatomic. Joint spaces are well maintained. No abnormal soft tissue calcification. IMPRESSION: Normal left knee.
--- NOTE | ~2022-08-26 | XR_ITS ---
EXAMINATION: XR LUMBOSACRAL SPINE CLINICAL INFORMATION: Lower back pain. COMPARISON: Radiographs dated 10/16/2020. TECHNIQUE: AP and lateral views of the lumbar spine and lateral view of the lumbosacral junction. FINDINGS: Vertebral body heights are normal. At L5-S1, there is a 4 mm retrolisthesis. The remaining disc spaces are well-maintained. No acute fracture or spondylolisthesis is seen. This multi-level moderate lower thoracic and mild lumbar spondylosis. The posterior elements are intact. The paravertebral soft tissues are unremarkable. XR/XR lumbar spine 2-3V IMPRESSION: 1. There is mild degenerative disc disease at L5-S1, similar to prior. 2. There is multi-level thoracolumbar spondylosis.
--- NOTE | ~2022-08-26 | XR_ITS ---
EXAMINATION: XR KNEE, RIGHT CLINICAL INFORMATION: Pain. COMPARISON: Radiographs dated 12/11/2017. TECHNIQUE: AP, lateral and sunrise views of the right knee. FINDINGS: Bones and soft tissues are normal. No fracture or joint effusion. Alignment is anatomic. Joint spaces are well maintained. No abnormal soft tissue calcification. XR/XR knee LT 3V IMPRESSION: Normal right knee. EXAMINATION: XR KNEE, LEFT CLINICAL INFORMATION: Pain. COMPARISON: Radiographs dated 12/11/2017. TECHNIQUE: AP, lateral and sunrise views of the left knee. FINDINGS: Bones and soft tissues are normal. No fracture or joint effusion. Alignment is anatomic. Joint spaces are well maintained. No abnormal soft tissue calcification. IMPRESSION: Normal left knee.
== END 2022-08-26 14:00 | disposition home or self-care (01) ==
LOC: HO.XRAY 13:59
PROVIDERS: PCP Family Medicine; Visit Provider Family Medicine
DX: M54.50 Low back pain, unspecified (principal); M25.561 Pain in right knee; M25.562 Pain in left knee; M79.641 Pain in right hand; M79.642 Pain in left hand
CPT/HCPCS: 72100; 73130; 73562

== ENCOUNTER 2022-09-19 10:03 | Outpatient (REF) | payer MEDICAID, SELFPAY ==
--- NOTE | 2022-09-19 | PFT_ITS ---
INDICATION: Dyspnea. SPIROMETRY: FEV1 to FVC of 81% with an FEV1 of 3.49 L, which is 108% predicted and FVC of 4.38 L, which is 102% predicted. No significant response to bronchodilators noted. Maximum voluntary ventilation 91% predicted. LUNG VOLUMES: Total lung capacity 100% predicted with a residual volume of 107% predicted. DIFFUSION CAPACITY: DLCO 86% predicted. COMPARISONS: None. INTERPRETATION: No obstructive nor restrictive ventilatory defects identified. No significant response to bronchodilators noted and normal maximum voluntary ventilation. Lung volumes are completely normal. Diffusion capacity also within normal limits. The patient did have some difficulties with the flow volume loop, but otherwise did well. If asthma is in the differential, consider methacholine challenge assessing for hyper-reactive airways, otherwise no clear explanation for the patient's dyspnea based on these PFTs. MD NELLY Yu/JUANCARLOS / [phone]
== END 2022-09-19 10:04 | disposition home or self-care (01) ==
LOC: HO.RESP 10:03
PROVIDERS: PCP Family Medicine; Visit Provider Family Medicine
DX: R06.09 Other forms of dyspnea (principal)
CPT/HCPCS: 94060; 94727; 94729

== ENCOUNTER 2022-09-30 10:03 | Outpatient (REF) | payer MEDICAID, SELFPAY ==
--- NOTE | ~2022-09-30 | US_ITS ---
EXAMINATION: US ABDOMEN COMPLETE CLINICAL INFORMATION: Fatty liver. COMPARISON: CT abdomen and pelvis 09/19/2019, ultrasound abdomen 08/29/2019 and 12/05/2018 TECHNIQUE: Real-time imaging of the abdominal viscera. FINDINGS: PANCREAS: Technically difficult study secondary to bowel gas. Visualized portions of the head, neck and proximal body are normal, without mass, focal enlargement or ductal dilatation. ABDOMINAL AORTA: The proximal, mid, and distal segments are normal in caliber. INFERIOR VENA CAVA: Visualized portions are normal. LIVER: The liver is normal in size. The liver contour is normal. There is diffuse increased liver parenchymal echogenicity. No focal hepatic lesion. There is no intrahepatic biliary duct dilatation seen. GALLBLADDER: The gallbladder is physiologically distended without evidence of stones, sludge, wall thickening or pericholecystic fluid. 7 mm and 6 mm nonmobile polyp is seen, likely cholesterol polyps. COMMON BILE DUCT: Normal in caliber measuring 0.4 cm in diameter. RIGHT KIDNEY: Normal. No hydronephrosis. No renal calculi or focal parenchymal lesions. The kidney measures 10.3 cm in maximum dimension. LEFT KIDNEY: No hydronephrosis. No renal calculi or focal parenchymal lesions. The kidney measures 12.1 cm in maximum dimension. SPLEEN: There is no focal finding. The spleen measures 15.5 cm in maximum dimension. FREE FLUID: None. US/US abdomen complete IMPRESSION: 1. There is generalized increase in hepatic echotexture, consistent with fatty infiltration or hepatocellular disease. Please correlate clinically. No focal hepatic mass or intrahepatic biliary dilatation is seen. 2. There is mild splenomegaly. 3. 7 mm and 6 mm gallbladder polyps are seen, likely cholesterol polyps and larger than prior sonographically visualized gallbladder polyps. As a precaution, repeat abdominal ultrasound examination is recommended in 6 months to ensure stability. 4. Technically limited ultrasound examination of the pancreas.
== END 2022-09-30 10:04 | disposition home or self-care (01) ==
LOC: HO.US 10:03
PROVIDERS: PCP Family Medicine; Visit Provider Family Medicine
DX: K76.0 Fatty (change of) liver, not elsewhere classified (principal)
CPT/HCPCS: 76700

== ENCOUNTER → 2022-10-13 13:56 | Outpatient (BNVA) | payer MEDICAID, SELFPAY | PROVIDERS: PCP Family Medicine; Visit Provider Surgery | DX: K82.4 Cholesterolosis of gallbladder (principal) | CPT/HCPCS: 99202 ==

== ENCOUNTER 2022-11-14 13:01 | Emergency (ER) | payer OTHER, SELFPAY ==
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
[2022-11-14 13:17] VITALS: BP 128/73; BP 134/84; PULSE 60; PULSE 61; PULSE 64; RESP 16; TEMP 36.4; O2SAT 97; O2SAT 99; BMI 23.9
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
[2022-11-14] MEDS: Acetaminophen 325 MG TABLET 975 MG PO (13:33)
== END 2022-11-14 17:35 | disposition home or self-care (01) ==
PROVIDERS: Emergency Provider Emergency Medicine Emergency Medical Services; PCP Family Medicine
DX: S06.0X0A Concussion without loss of consciousness, initial encounter (principal); S13.9XXA Sprain of joints and ligaments of unspecified parts of neck, initial encounter; S39.012A Strain of muscle, fascia and tendon of lower back, initial encounter; S73.101A Unspecified sprain of right hip, initial encounter; V43.52XA Car driver injured in collision with other type car in traffic accident, initial encounter; R51.9 Headache, unspecified; Y93.89 Activity, other specified; Y92.414 Local residential or business street as the place of occurrence of the external cause; Y99.9 Unspecified external cause status
CPT/HCPCS: 70450; 72100; 72125; 73502; 99284

== ENCOUNTER 2023-09-14 10:44 | Outpatient (AMB) | payer MEDICAID, SELFPAY ==
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
[2023-09-14 10:54] VITALS: BP 113/66; PULSE 65; O2SAT 96; BMI 23.0
== END 2023-09-14 11:30 | disposition home or self-care (01) ==
PROVIDERS: PCP Family Medicine; Referring Provider Family Medicine; Visit Provider Nurse Practitioner Family
DX: M47.816 Spondylosis without myelopathy or radiculopathy, lumbar region (principal); M25.561 Pain in right knee; M25.562 Pain in left knee; M51.36 Other intervertebral disc degeneration, lumbar region; M54.50 Low back pain, unspecified
CPT/HCPCS: 99204

== ENCOUNTER → 2023-09-14 10:44 | Outpatient (BNVA) | payer MEDICAID, SELFPAY | PROVIDERS: PCP Family Medicine; Referring Provider Family Medicine; Visit Provider Nurse Practitioner Family | DX: M47.816 Spondylosis without myelopathy or radiculopathy, lumbar region (principal); M25.561 Pain in right knee; M25.562 Pain in left knee; M51.36 Other intervertebral disc degeneration, lumbar region; M54.50 Low back pain, unspecified | CPT/HCPCS: 99212 ==

== ENCOUNTER 2023-09-29 09:24 | Outpatient (REF) | payer MEDICAID, SELFPAY ==
--- NOTE | ~2023-09-29 | US_ITS ---
EXAMINATION: US ABDOMEN COMPLETE CLINICAL INFORMATION: Gallbladder polyp. COMPARISON: Ultrasound abdomen complete 09/30/2022 and 08/29/2019. CT abdomen and pelvis 09/19/2019. TECHNIQUE: Real-time imaging of the abdominal viscera. FINDINGS: PANCREAS: Normal. ABDOMINAL AORTA: The proximal, mid, and distal segments are normal in caliber. INFERIOR VENA CAVA: Visualized portions are normal. LIVER: Normal. The liver is normal in size. The liver contour is normal. Parenchymal echogenicity is normal. No focal hepatic lesion. There is no intrahepatic biliary duct dilatation seen. GALLBLADDER: There are small shadowing gallstones. The gallbladder is physiologically distended. No evidence of gallbladder wall thickening or pericholecystic fluid. COMMON BILE DUCT: Normal in caliber measuring 0.3 cm in diameter. RIGHT KIDNEY: Normal. No hydronephrosis. No renal calculi or focal parenchymal lesions. The kidney measures 10.3 cm in maximum dimension. LEFT KIDNEY: There is a duplicated collecting system. No hydronephrosis. No renal calculi or focal parenchymal lesions. The kidney measures 12.0 cm in maximum dimension. SPLEEN: No focal finding. The spleen measures 16.7 cm in maximum dimension. FREE FLUID: None. US/US abdomen complete IMPRESSION: 1. No gallbladder polyp is presently appreciated. There is mild cholelithiasis. 2. There is splenomegaly.
== END 2023-09-29 09:25 | disposition home or self-care (01) ==
LOC: HO.US 09:24
PROVIDERS: PCP Family Medicine; Visit Provider Family Medicine
DX: K82.4 Cholesterolosis of gallbladder (principal)
CPT/HCPCS: 76700

== ENCOUNTER 2023-10-10 06:11 | Outpatient (REF) | payer MEDICAID, SELFPAY ==
--- NOTE | ~2023-10-10 | FL_ITS ---
EXAMINATION: XR FLUOROSCOPY WITH IMAGES CLINICAL INFORMATION: Other intervertebral disc degeneration, lumbar region. COMPARISON: None available. TECHNIQUE: Fluoroscopy Supervised By: Dr. Nazario Landry. Fluoroscopy Time: 0.5 minutes. Cumulative Dose: 5.84 mGy. DAP: 0.101 Gycm2. Images: 6. FINDINGS: Images demonstrate needle placement and contrast injection adjacent to the bilateral lateral L3, L4 and L5 vertebrae FL/FL guidance in treatment room IMPRESSION: Fluoroscopy for pain management procedure.
== END 2023-10-10 06:12 | disposition home or self-care (01) ==
LOC: CF 06:11
PROVIDERS: Visit Provider Anesthesiology
DX: M51.36 Other intervertebral disc degeneration, lumbar region (principal); M47.816 Spondylosis without myelopathy or radiculopathy, lumbar region
CPT/HCPCS: 64493; 64494; J2795; Q9967

== ENCOUNTER 2023-10-10 13:14 | Outpatient (AMB) | payer MEDICAID, SELFPAY ==
[2023-10-10 14:45] VITALS: BP 110/64; PULSE 61; RESP 16; O2SAT 99; BMI 23.0
--- NOTE | 2023-10-10 14:45 | MHC.OFFVIS ---
Intake Vital Signs 10/10/23 14:45 10/10/23 14:46 Height 5 ft 10 in 5 ft 10 in Weight 160 lb 160 lb BMI 23.0 23.0 BP 110/64 116/80 Blood Pressure Location Lt brachial Lt brachial Position Sitting Sitting Respiration 16 16 Pulse 61 60 Pulse Source Pulse Oximeter Pulse Oximeter Pulse Oximetry (%) 99 96 Oxygen Delivery Method Room Air Room Air Comment pre-op post-op Intake Visit Reasons: BILATERAL DIAGNOSTIC L3, L4, DRL5 MBB Allergies No Known Allergies [No Known Allergies*] Allergy (Verified 10/10/23 14:46) FORMERLY [facility] Medical History (Updated 10/11/23 @ 07:58 by Nazario Landry MD) History of syphilis BPH (benign prostatic hyperplasia) Hyperplastic colon polyp (~2014) Hypertension 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 Hiatal hernia Nicotine dependence, cigarettes, uncomplicated Gallbladder polyp Depression Substance abuse MICH (obstructive sleep apnea) (~2014) Hyperlipidemia, unspecified Essential hypertension Surgical History (Updated 12/27/22 @ 12:48 by Linda Freeman PA-C) History of foot surgery History of colonoscopy Family History Mother Diabetes CAD (coronary artery disease) Hypertension Hyperlipidemia MICH (obstructive sleep apnea) Heart problem Father Alzheimer disease Depression Maternal Grandmother Heart problem Social History Alcohol intake: never Physical Exam Vital Signs: Last Vital Signs Pulse 60 10/10/23 14:46 Resp 16 10/10/23 14:46 BP 116/80 10/10/23 14:46 Pulse Ox 96 10/10/23 14:46 Oxygen Delivery Method Room Air 10/10/23 14:46 BMI result Body Mass Index 23.0 Assessment & Plan Assessment & Plan (1) Spondylosis of lumbar region without myelopathy or radiculopathy: Code(s): M47.816 - Spondylosis without myelopathy or radiculopathy, lumbar region Plan Diagnostic medial branch block L3,L4 dorsal ramus L5 bilateral.? ? ?Informed consent was explained to the patient. All questions were explained and? answered.? The patient was taken inside the operating room where she was positioned prone on the operating table. Time-out was performed delineating correct site, side, the nature of the procedure, patient's allergy, . All operating room staff was participating in OR time-out procedure. ? ? The lower back was prepped with ChloraPrep and draped with sterile towels.? C-arm was brought over the operating field and sq picture of L4-, L5 vertebra and S1 AREA were delineated on the screen.? Point of interest were delineated as confluence of superior articular process of L4 and L5 vertebra bilaterally with corresponding transverse processes as well as confluence of the sacral alae bilaterally with superior articular process of S1.? The projection of the point of interest to the skin were injected with the small amount of local anesthetic lidocaine 2% 1-1.5 cc.? After that 22 gauge 3.5 inch spinal needle was driven sequentially to the points of interest in tunnel vision fashion. After needles gently contacted the bone at the point of interests the needle was injected with small amount of the contrast.? The injection of the contrast did not demonstrate any intravascular or intrathecal spread of the contrast.? After that injection of the? ropivacaine 0.5%-1cc was performed at each needle location.??after that the needles were removed and Bandaids were applied. ? Upon completion of the injections? needle was? removed and sterile Band-Aids were applied.? The patient tolerated procedure very well. Orders: Orders FL guidance in treatment room 10/10/23 M51.36 - Other intervertebral disc degeneration, lumbar region Coding Level of Care Code Procedure Only Diagnoses Spondylosis of lumbar region without myelopathy or radiculopathy M47.816
[2023-10-10 14:46] VITALS: BP 116/80; PULSE 60; RESP 16; O2SAT 96; BMI 23.0
== END 2023-10-10 14:39 | disposition home or self-care (01) ==
LOC: HO.PMCPRC 13:15
PROVIDERS: PCP Family Medicine; Visit Provider Anesthesiology
DX: M47.816 Spondylosis without myelopathy or radiculopathy, lumbar region (principal)
CPT/HCPCS: 64493; 64494

== ENCOUNTER 2023-10-17 13:03 | Outpatient (AMB) | payer MEDICAID, SELFPAY ==
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
[2023-10-17 13:13] VITALS: BP 118/69; PULSE 69; O2SAT 97; BMI 23.4
== END 2023-10-17 13:21 | disposition home or self-care (01) ==
PROVIDERS: PCP Family Medicine; Visit Provider Nurse Practitioner Family
DX: M47.816 Spondylosis without myelopathy or radiculopathy, lumbar region (principal); M51.36 Other intervertebral disc degeneration, lumbar region; M54.51 Vertebrogenic low back pain; M54.16 Radiculopathy, lumbar region
CPT/HCPCS: 99214

== ENCOUNTER → 2023-10-17 13:03 | Outpatient (BNVA) | payer MEDICAID, SELFPAY | PROVIDERS: PCP Family Medicine; Visit Provider Nurse Practitioner Family | DX: M47.816 Spondylosis without myelopathy or radiculopathy, lumbar region (principal); M51.36 Other intervertebral disc degeneration, lumbar region; M54.51 Vertebrogenic low back pain; M54.16 Radiculopathy, lumbar region | CPT/HCPCS: 99212 ==

== ENCOUNTER 2023-11-10 09:52 | Outpatient (AMB) | payer MEDICAID, SELFPAY ==
--- NOTE | 2023-11-10 10:11 | A.OFFVIS_ITS ---
Intake Intake Visit Reasons: LDCT SD Allergies No Known Allergies [No Known Allergies*] Allergy (Verified 10/17/23 13:13) HPI HPI Comments History of Present Illness Details Pablito is a pleasant 63 year old male, former smoker with a 22.5 PYH, quit 5 months ago. Patient has been smoking since age 18 for 45 years at 1/2 ppd. Denies marijuana use. 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 Denies second hand smoke exposure. Denies known family history of lung cancer. Denies personal history of cancers. Denies chest CT in last year. Denies recent travel outside the [place]. Denies testing positive for COVID. Admits receiving COVID Vaccine. Denies fever, chills, chest pain, new cough, hemoptysis or unintentional weight loss. Lung Cancer Screening Questionnaire reviewed with patient by provider. Shared Decision Making Completed. Discussed in detail with patient, the risk versus benefit of LDCT screening. Patient in agreement of proceeding with scan. [facility] Medical History History of syphilis BPH (benign prostatic hyperplasia) Hyperplastic colon polyp (~2014) Hypertension 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 Hiatal hernia Nicotine dependence, cigarettes, uncomplicated Gallbladder polyp Depression Substance abuse MICH (obstructive sleep apnea) (~2014) Hyperlipidemia, unspecified Essential hypertension Surgical History History of foot surgery History of colonoscopy Family History Mother Diabetes CAD (coronary artery disease) Hypertension Hyperlipidemia MICH (obstructive sleep apnea) Heart problem Father Alzheimer disease Depression Maternal Grandmother Heart problem Social History Alcohol intake: never Assessment & Plan Assessment & Plan (1) Personal history of tobacco use: Code(s): Z87.891 - Personal history of nicotine dependence Plan Shared decision-making visit completed today in office. This patient meets criteria for LDCT for lung cancer screening purposes and is asymptomatic. Patient has been scheduled for a low dose chest CT for screening purposes at [facility]. We discussed how the results will be obtained depending on CT findings. RADS 1 and RADS 2 will receive a letter with results and will follow up for annual LDCT. Patient informed they will be contacted at later date to schedule upcoming LDCT scan. RADS 3 and RADS 4 will receive a telephone call, or an office visit after reviewing case at our Lung Cancer Conference to determine when the next LDCT will be scheduled or further interventions that may be needed. Discussed importance of screening program and compliance with yearly LDCT scan as scheduled. Risks, benefits, and alternatives were discussed in detail and patient agrees to proceed. Risks discussed include but are not limited to: radiation exposure and possibility of additional intervention for benign disease. Benefits include detection of lung cancer at an early stage. A copy of today's visit and LDCT results will be sent to patient's PCP. Incidental findings on LDCT are PCP's responsibility. If there are incidental findings, our office will ensure that PCP office is aware of these findings. All questions were answered and patient is in agreement of plan. Coding Level of Care Code Lung Cancer Screening G0296 Diagnoses Personal history of tobacco use Z87.891
== END 2023-11-10 10:19 | disposition home or self-care (01) ==
PROVIDERS: PCP Family Medicine; Visit Provider Nurse Practitioner Family
DX: Z87.891 Personal history of nicotine dependence (principal)
CPT/HCPCS: G0296

== ENCOUNTER 2023-11-10 10:22 | Outpatient (REF) | payer MEDICAID, SELFPAY ==
--- NOTE | ~2023-11-10 | CT_ITS ---
EXAMINATION: CT CHEST LOW-DOSE SCREENING WITHOUT CONTRAST HISTORY: Asymptomatic patient meeting criteria for lung screening. Smoking 1 pack per day. PATIENT PACK-YEAR HISTORY: 46 pack-years. Current Smoker: Yes. COMPARISON: CT chest 04/27/2021. TECHNIQUE: Multidetector volumetric noncontrast CT imaging of the chest was obtained using low-dose screening CT technique. Axial thin section 0.60 mm reformations in soft tissue and lung windows were obtained. Sagittal and coronal reformations were obtained. Axial MIP images were also created and reviewed. RECONSTRUCTED WIDTH: 1.25 mm x 1.[address] examination was performed using dose optimization techniques as appropriate, variously including the following: *Automated exposure control *Adjustment of mA and/or kV according to patient size (this includes techniques or standardized protocols for targeted exams where dose is matched to indication/reason for exam; i.e. extremities or head) *Use of iterative reconstruction technique TOTAL EXAM DLP: 55 mGy-cm CTDIvol: 1.30 mGy FINDINGS: LUNGS: Some minimal emphysematous changes are present. Lungs bilaterally symmetrically expanded. There is a 3 mm left upper lobe pulmonary nodule (5:198). There is an area of mucus impaction in a left lower lobe bronchus (5:307). No worrisome or concerning focal lung nodule or mass. No effusion or pneumothorax. Central airways patent. LYMPHATIC STRUCTURES: No mediastinal, hilar or axillary adenopathy or free fluid collection. THYROID GLAND: Unremarkable to the extent seen. CARDIOVASCULAR STRUCTURES: Aortic and heart size normal. Minimal coronary artery calcifications. No pericardial effusion. UPPER ABDOMEN: Included portions of the solid organs in the upper abdomen unremarkable on noncontrast imaging. OSSEOUS STRUCTURES: No suspicious focal findings. Mild degenerative changes noted in the lower thoracic and upper lumbar spine. SPINAL COMPRESSION: Absent. CT/CT lung screening IMPRESSION: No findings suspicious for malignancy. Minimal emphysema. One tiny left upper lobe 3 mm pulmonary nodule. LUNG-RADS CATEGORY ASSESSMENT: Benign. INCIDENTAL FINDINGS (S CATEGORY): Finding: No incidental findings. Significance category: Normal or normal variant. RECOMMENDATION: Low-dose lung CT overall in 1 year. Visual estimate of coronary calcified plaque burden: Minimal. However, this exam cannot replace a dedicated cardiac CT calcium score for accurate assessment.
== END 2023-11-10 10:23 | disposition home or self-care (01) ==
LOC: HO.CT 10:22
PROVIDERS: PCP Family Medicine; Visit Provider Physician Assistant Medical
DX: Z12.2 Encounter for screening for malignant neoplasm of respiratory organs (principal); F17.210 Nicotine dependence, cigarettes, uncomplicated
CPT/HCPCS: 71271; G0296

== ENCOUNTER 2023-12-01 14:07 | Outpatient (REF) | payer MEDICAID, SELFPAY ==
[2023-12-01 16:14] LABS: MANUAL DIFF FLAG NO
[2023-12-01 16:29] LABS: Basophils Percent Auto 0.6 % (0-2); Eosinophils Absolute Auto 0.2 X10*3/uL (0.0-0.4); Eosinophils Percent Auto 2.3 % (0-4); Hematocrit 46.6 % (42.0-52.0); Hemoglobin 15.8 g/dl (14.0-18.0); Imm Gran Abs Auto 0.04 X10*3/uL (0.00-0.03); Imm Gran Pct Auto 0.6 % (0.0-0.4); Lymphocytes Absolute Auto 2.3 X10*3/uL (1.2-4.9); Lymphocytes Percent Auto 33.7 % (20-40); Mean Corpuscular HGB Conc 33.9 g/dl (31.0-36.0); Mean Corpuscular Hemoglobin 32.4 pg (27.0-33.0); Mean Corpuscular Volume 95.5 fL (80.0-98.0); Mean Platelet Volume 12.9 fL (9.4-12.4); Monocytes Absolute Auto 0.9 X10*3/uL (0.1-1.2); Monocytes Percent Auto 13.5 % (2-11); Neutrophils Absolute Auto 3.4 x10*3/uL (2.0-8.3); Neutrophils Percent Auto 49.3 % (45-73); Platelet Count 122 X10*3/uL (160-400); Red Blood Count 4.88 X10*6/uL (4.60-5.80); Red Cell Distribution Width 12.4 % (11.0-16.0); White Blood Count 6.9 X10*3/uL (4.8-10.8)
[2023-12-01 16:39] LABS: Estimated Average Glucose 137 mg/dL; Hemoglobin A1c % 6.4 % (<6.0)
[2023-12-01 16:55] LABS: Albumin Level 4.2 g/dL (3.5-5.0); Anion Gap 11 (12-20); Blood Urea Nitrogen 13 mg/dL (9-16); Calcium 9.5 mg/dL (8.4-10.2); Carbon Dioxide 33 mmol/L (22-29); Chloride 99 mmol/L (96-108); Estimated Glomerular Filt Rate > 60; Glucose Random 97 mg/dL (60-115); Iron 84 mcg/dL (45-160); Percent Iron Saturation 31 % (15-50); Phosphorus 3.4 mg/dL (2.7-4.5); Potassium 3.6 mmol/L (3.3-5.1); Sodium 139 mmol/L (135-145); Total Iron Binding Capacity 275 mcg/dL (228-428); Unsaturated Iron Binding 191 ug/dL
[2023-12-01 17:01] LABS: Uric Acid 4.6 mg/dL (3.4-7.0); Vitamin D 25-OH Total 68.8 ng/mL (>30)
[2023-12-01 18:05] LABS: Appearance Urine Clear; Color Urine Yellow; Glucose Urine UA >=1000 mg/dL (Negative); Leukocyte Esterase Urine Negative (Negative); Nitrite Urine Negative (Negative); PH 5.5 (5.0-9.0); Specific Gravity - Urine >= 1.030 (1.005-1.025); UMIC TRIGGER UA YES; Urine Blood Negative (Negative); Urine Ketones Negative (Negative); Urine Protein Negative (Neg-Trace)
[2023-12-01 18:11] LABS: Bacteria Urine None Seen (None Seen); Hyaline Casts Urine 0-2 /LPF (0-2); RBC Urine 0-2 /HPF (0-2); Squamous Epithelial Cell Urine 0-2 /HPF (0-2); WBC Urine 0-5 /HPF (0-5)
[2023-12-01 18:24] LABS: Creatinine Urine 82.67 mg/dL; Total Protein Urine Random < 7 mg/dL (<12)
== END 2023-12-01 14:08 | disposition home or self-care (01) ==
LOC: HO.HHCL 14:07
PROVIDERS: Internal Medicine; Visit Provider Physician Assistant
DX: I12.9 Hypertensive chronic kidney disease with stage 1 through stage 4 chronic kidney disease, or unspecified chronic kidney disease (principal); E11.22 Type 2 diabetes mellitus with diabetic chronic kidney disease; N18.2 Chronic kidney disease, stage 2 (mild)
CPT/HCPCS: 36415; 80051; 81001; 82040; 82306; 82310; 82565; 82570; 82947; 83036; 83540; 83970; 84100; 84156; 84520; 84550; 85025

== ENCOUNTER 2023-12-04 18:24 | Outpatient (REF) | payer MEDICAID, SELFPAY ==
--- NOTE | ~2023-12-04 | MR_ITS ---
EXAMINATION: MR LUMBAR SPINE WITHOUT CONTRAST CLINICAL INFORMATION: 63-year-old with low back pain and bilateral lower extremity radicular symptoms. Other intervertebral disc degeneration, lumbar region. COMPARISON: None available. TECHNIQUE: MRI of the lumbar spine was obtained using routine sequences without contrast. FINDINGS: CORONAL ALIGNMENT: Normal. SAGITTAL ALIGNMENT: There is straightening of the lumbar spine which is nonspecific. Otherwise normal lumbosacral alignment. LUMBOSACRAL JUNCTION: Normal. There are 5 [id number] lumbar-type vertebral bodies. VERTEBRAL BODIES: Well maintained with normal height. No compression fractures, anomalies or other deformities. DISC SPACES AND ENDPLATES: Ysny-wp-iqggqmpm disc volume loss at L5-S1 is noted, with disc desiccation. There is disc desiccation at L4-L5 without significant disc space height loss, with minor anterior marginal endplate spurring. There are minor degrees of disc desiccation throughout the remainder of the lumbar intervertebral discs and visualized lower thoracic intervertebral discs. There is myoy-dd-llaxczyj anterior marginal spondylosis asymmetric to the right at T12-L1 and T11-T12 and partially imaged at T10-T11. SPINAL CANAL: No abnormal developmental findings. BONE MARROW: No significant marrow-replacing process or bone marrow edema. Minimal type II degenerative marrow signal changes are seen along the endplates at L5-S1 on the left. CONUS MEDULLARIS: Terminates at L1. Morphology and signal is normal. INTRADURAL NERVE ROOTS: Within normal limits. L5-S1: There is disc bulging, which contacts the left S1 nerve root sleeve without nerve root compression or displacement. There is mzvl-xo-bayqjlri bilateral facet arthropathy without significant canal stenosis. Vcad-aj-pxynqzbj left-sided foraminal narrowing is noted without exiting neural impingement. L4-L5: There is mild annular bulging, which contacts the L5 nerve root sleeves bilaterally, left more than right with mild facet arthrosis without central canal or neural foraminal stenosis. There is slight narrowing of the left subarticular recess. L3-L4: There is broad-based left paramedian to lateral foraminal disc protrusion and a small right-sided inferior foraminal/extraforaminal disc protrusion. Slight indentation of the ventral thecal sac is noted left more than right with minor facet arthropathy without significant canal or neural foraminal stenosis. L2-L3: Normal annular contour. No significant facet arthrosis, canal or foraminal stenosis. L1-L2: Small central to left paramedian disc protrusion. Mild ligamentum flavum thickening and minor facet arthrosis noted. No significant canal or neural foraminal stenosis. PARAVERTEBRAL AND INCLUDED EXTRASPINAL SOFT TISSUES: The visualized paravertebral soft tissues and included retroperitoneal structures are unremarkable within the limitations of the exam. MR/MR lumbar spine wo con IMPRESSION: 1. Straightening of the lumbar spine which is nonspecific. 2. Discogenic degenerative changes at L5-S1 and, to a lesser degree, at L4-L5, with disc bulging at L5-S1 which contacts the left S1 nerve root and disc bulging at L4-L5 which contacts the L5 nerve root sleeves bilaterally, left more than right and disc protrusions at L3-L4 as discussed above without significant central spinal canal stenosis. Ntwo-jh-juunmkaf left-sided neural foraminal stenosis noted at L5-S1. Mild disc protrusions at L3-L4 and L1-L2. 3. Lower thoracic spondylosis, as described above.
== END 2023-12-04 18:25 | disposition home or self-care (01) ==
LOC: HO.MRI 18:24
PROVIDERS: PCP Family Medicine; Visit Provider Nurse Practitioner Family
DX: M51.36 Other intervertebral disc degeneration, lumbar region (principal); M47.816 Spondylosis without myelopathy or radiculopathy, lumbar region; M54.51 Vertebrogenic low back pain; M54.16 Radiculopathy, lumbar region
CPT/HCPCS: 72148

== ENCOUNTER 2023-12-29 13:54 | Outpatient (REF) | payer MEDICAID, SELFPAY ==
[2023-12-29 16:44] LABS: Alanine Aminotransferase 23 U/L (0-40); Albumin Level 4.2 g/dL (3.5-5.0); Alkaline Phosphatase 56 U/L (39-117); Aspartate Amino Transferase 22 U/L (5-37); Bilirubin Direct 0.3 mg/dL (0.0-0.5); Bilirubin Total 0.7 mg/dL (0.0-1.0); Total Protein 7.9 g/dL (6.5-8.0)
== END 2023-12-29 13:55 | disposition home or self-care (01) ==
LOC: HO.HHCL 13:54
PROVIDERS: Visit Provider Family Medicine
DX: F10.20 Alcohol dependence, uncomplicated (principal)
CPT/HCPCS: 36415; 80076

== ENCOUNTER 2024-01-04 13:14 | Outpatient (REF) | payer MEDICAID, SELFPAY ==
[2024-01-04 15:59] LABS: MANUAL DIFF FLAG NO
[2024-01-04 16:13] LABS: Basophils Percent Auto 0.4 % (0-2); Eosinophils Absolute Auto 0.1 X10*3/uL (0.0-0.4); Eosinophils Percent Auto 1.7 % (0-4); Hematocrit 47.8 % (42.0-52.0); Imm Gran Abs Auto 0.06 X10*3/uL (0.00-0.03); Imm Gran Pct Auto 0.8 % (0.0-0.4); Lymphocytes Absolute Auto 2.4 X10*3/uL (1.2-4.9); Lymphocytes Percent Auto 30.4 % (20-40); Mean Corpuscular HGB Conc 33.5 g/dl (31.0-36.0); Mean Corpuscular Hemoglobin 32.4 pg (27.0-33.0); Mean Corpuscular Volume 96.8 fL (80.0-98.0); Mean Platelet Volume 12.9 fL (9.4-12.4); Monocytes Absolute Auto 0.9 X10*3/uL (0.1-1.2); Monocytes Percent Auto 11.2 % (2-11); Neutrophils Absolute Auto 4.4 x10*3/uL (2.0-8.3); Neutrophils Percent Auto 55.5 % (45-73); Platelet Count 140 X10*3/uL (160-400); Red Blood Count 4.94 X10*6/uL (4.60-5.80); Red Cell Distribution Width 12.7 % (11.0-16.0); White Blood Count 7.9 X10*3/uL (4.8-10.8)
== END 2024-01-04 13:15 | disposition home or self-care (01) ==
LOC: HO.HHCL 13:14
PROVIDERS: Visit Provider Internal Medicine
DX: K62.5 Hemorrhage of anus and rectum (principal)
CPT/HCPCS: 36415; 85025

== ENCOUNTER 2024-02-01 11:18 | Outpatient (REF) | payer MEDICAID, SELFPAY ==
--- NOTE | ~2024-02-01 | XR_ITS ---
EXAMINATION: XR ELBOW, LEFT CLINICAL INFORMATION: Polyarthralgia, worsening joint pain, bilateral elbow pain COMPARISON: None available. TECHNIQUE: AP, lateral, and oblique views of the left elbow. FINDINGS: BONES: Bony structures are intact. There is no focal bone destruction or periosteal reaction seen. JOINTS: Alignment of joints is normal. SOFT TISSUE: Soft tissue is normal. No radiopaque foreign body or abnormal air collection is seen. XR/XR elbow LT min 3V IMPRESSION: 1. Normal x-rays of left elbow. No fracture or dislocation or signs of osteomyelitis are found.
--- NOTE | ~2024-02-01 | XR_ITS ---
EXAMINATION: XR FOOT, RIGHT CLINICAL INFORMATION: Polyarthralgia, right foot trauma, right great toe pain COMPARISON: None available. TECHNIQUE: AP, lateral, and oblique views of the right foot. FINDINGS: BONES: Bony structures are intact. There is no focal bone destruction or periosteal reaction seen. Distal right tibial fixation with metallic plate and cortical screws is partially visualized. JOINTS: Alignment of joints is normal. SOFT TISSUE: Soft tissue is normal. No radiopaque foreign body or abnormal air collection is seen. XR/XR foot RT min 3V IMPRESSION: 1. Normal x-rays of right foot. No fracture or dislocation or signs of osteomyelitis are found.
--- NOTE | ~2024-02-01 | XR_ITS ---
EXAMINATION: XR FOOT, LEFT CLINICAL INFORMATION: Polyarthralgia, worsening foot pain COMPARISON: None available. TECHNIQUE: AP, lateral, and oblique views of the left foot. FINDINGS: BONES: Bony structures are intact. There is no focal bone destruction or periosteal reaction seen. JOINTS: Alignment of joints is normal. SOFT TISSUE: Soft tissue is normal. No radiopaque foreign body or abnormal air collection is seen. XR/XR foot LT min 3V IMPRESSION: 1. Normal x-rays of left foot. No fracture or dislocation or signs of osteomyelitis are found.
--- NOTE | ~2024-02-01 | XR_ITS ---
EXAMINATION: XR KNEE, LEFT CLINICAL INFORMATION: Polyarthralgia, worsening knee pain COMPARISON: Left knee x-ray on 08/26/2022 TECHNIQUE: Four views of the left knee. FINDINGS: BONES: Bony structures are intact. There is no focal bone destruction or periosteal reaction seen. JOINTS: Alignment of joints is normal. SOFT TISSUE: Soft tissue is normal. No radiopaque foreign body or abnormal air collection is seen. XR/XR knee LT 4V IMPRESSION: 1. Unchanged Normal x-rays of left knee. No fracture or dislocation or signs of osteomyelitis are found.
--- NOTE | ~2024-02-01 | XR_ITS ---
EXAMINATION: XR KNEE, RIGHT CLINICAL INFORMATION: Polyarthralgia, worsening knee pain COMPARISON: Right knee x-ray on 08/26/2022 TECHNIQUE: Four views of the right knee. FINDINGS: BONES: Bony structures are intact. There is no focal bone destruction or periosteal reaction seen. JOINTS: Alignment of joints is normal. SOFT TISSUE: Soft tissue is normal. No radiopaque foreign body or abnormal air collection is seen. XR/XR knee RT 4V IMPRESSION: 1. Unchanged Normal x-rays of right knee. No fracture or dislocation or signs of osteomyelitis are found.
--- NOTE | ~2024-02-01 | XR_ITS ---
EXAMINATION: XR ELBOW, RIGHT CLINICAL INFORMATION: Polyarthralgia, worsening joint pain, persistent right elbow pain COMPARISON: None available. TECHNIQUE: AP, lateral, and oblique views of the right elbow. FINDINGS: BONES: Bony structures are intact. There is no focal bone destruction or periosteal reaction seen. JOINTS: Alignment of joints is normal. SOFT TISSUE: A radiopaque foreign body is seen in lateral volar distal right arm measuring 0.5 x 0.1 cm in size. No radiopaque foreign body or abnormal air collection is seen. XR/XR elbow RT min 3V IMPRESSION: 1. No acute fracture or dislocation is seen in the right elbow. 2. A radiopaque foreign body is seen in the lateral volar distal right arm measuring 0.5 x 0.1 cm in size.
== END 2024-02-01 11:19 | disposition home or self-care (01) ==
LOC: HO.HHCX 11:18
PROVIDERS: Visit Provider Family Medicine
DX: M25.50 Pain in unspecified joint (principal); G89.29 Other chronic pain
CPT/HCPCS: 73080; 73564; 73630

== ENCOUNTER 2024-04-18 08:10 | Outpatient (REF) | payer MEDICAID, SELFPAY ==
[2024-04-18 11:50] LABS: Hematocrit 43.7 % (42.0-52.0); Hemoglobin 14.6 g/dl (14.0-18.0); Mean Corpuscular HGB Conc 33.4 g/dl (31.0-36.0); Mean Corpuscular Hemoglobin 33.1 pg (27.0-33.0); Mean Corpuscular Volume 99.1 fL (80.0-98.0); Mean Platelet Volume 12.4 fL (9.4-12.4); Platelet Count 120 X10*3/uL (160-400); Red Blood Count 4.41 X10*6/uL (4.60-5.80); Red Cell Distribution Width 13.5 % (11.0-16.0); White Blood Count 5.6 X10*3/uL (4.8-10.8)
[2024-04-18 12:20] LABS: Rheumatoid Factor < 13.0 IU/mL (<15.0)
[2024-04-18 12:29] LABS: Creatinine Urine 96.53 mg/dL; Microalbum/Creatinine Ratio Ur 14.5 ug/mg cr (<30)
[2024-04-18 12:30] LABS: Erythrocyte Sedimentation Rate 14 MM/HR (0-15); Estimated Average Glucose 146 mg/dL; Hemoglobin A1c % 6.7 % (<6.0)
[2024-04-18 12:47] LABS: Alanine Aminotransferase 29 U/L (0-40); Albumin Level 4.2 g/dL (3.5-5.0); Alkaline Phosphatase 46 U/L (39-117); Anion Gap 11 (12-20); Aspartate Amino Transferase 27 U/L (5-37); Bilirubin Direct 0.2 mg/dL (0.0-0.5); Bilirubin Total 0.4 mg/dL (0.0-1.0); Blood Urea Nitrogen 19 mg/dL (9-16); C Reactive Protein 0.11 mg/dL (< or = 0.50); Calcium 9.2 mg/dL (8.4-10.2); Carbon Dioxide 30 mmol/L (22-29); Chloride 105 mmol/L (96-108); Cholesterol 166 mg/dL (<200); Estimated Glomerular Filt Rate > 60; Glucose Random 165 mg/dL (60-115); HDL Cholesterol 52 mg/dL (>40); LDL Cholesterol Calculated 62 mg/dL (<100); Potassium 3.8 mmol/L (3.3-5.1); Sodium 142 mmol/L (135-145); Total Protein 7.6 g/dL (6.5-8.0); Triglycerides 264 mg/dL (<150)
[2024-04-18 13:27] LABS: Vitamin D 25-OH Total 64.4 ng/mL (>30)
[2024-04-18 14:37] LABS: Free T4 (Free Thyroxine) 0.78 ng/dL (0.71-1.85)
[2024-04-19 04:50] LABS: HBS Num1 0.64 mIU/mL (0-7.99); HBsAGNum1 0.24 S/CO (0.00-0.99); HIV AB/AG Nonreactive (Nonreactive); HIV Num 1 0.07 S/CO (0.00-0.99); Hepatitis B Surface Antigen Negative (Negative); ~HepC Num1 0.22 S/CO (0.00-0.79); ~Hepatitis B Surface Antibody NONREACTIVE (Nonreactive); ~Hepatitis C Antibody Nonreactive (Nonreactive)
[2024-04-19 17:53] LABS: Lyme Abs Screen <0.90 index
[2024-04-21 23:08] LABS: RPR Rapid Plasma Reagin REACTIVE (NON-REACTIVE)
[2024-04-22 12:58] LABS: Alpha Fetoprotein 5.6 ng/mL (<6.1)
[2024-04-22 15:13] LABS: Anti Nuclear Antibody Screen NEGATIVE (NEGATIVE)
== END 2024-04-18 08:11 | disposition home or self-care (01) ==
LOC: HO.HHCL 08:10
PROVIDERS: Visit Provider Family Medicine
DX: Z00.00 Encounter for general adult medical examination without abnormal findings (principal); E11.22 Type 2 diabetes mellitus with diabetic chronic kidney disease; N18.30 Chronic kidney disease, stage 3 unspecified; M25.50 Pain in unspecified joint; K76.0 Fatty (change of) liver, not elsewhere classified; Z79.4 Long term (current) use of insulin
CPT/HCPCS: 36415; 80048; 80061; 80076; 82043; 82105; 82306; 82570; 83036; 84439; 84443; 85027; 85652; 86038; 86140; 86431; 86592; 86593; 86617; 86618; 86706; 86803; 87340; 87389

== ENCOUNTER 2024-05-16 13:32 | Outpatient (REF) | payer MEDICAID, SELFPAY ==
--- NOTE | ~2024-05-16 | XR_ITS ---
EXAMINATION: XR SHOULDER RIGHT XR SHOULDER LEFT CLINICAL INFORMATION: Chronic shoulder pain. Limited range of motion. COMPARISON: Radiographs from 12/11/2017 TECHNIQUE: Right shoulder, 4 views Left shoulder, 4 views FINDINGS: Right shoulder: Bones have normal alignment. No fracture or subluxation. There appears to be minimal degenerative subarticular cystic change at the acromioclavicular joint. There are no prominent osteophytes projecting from the undersurface of this joint. The subacromial space is maintained. No calcium deposition within rotator cuff tendons (i.e., no evidence of calcific tendinitis). The visualized right lung is unremarkable. Left shoulder: Alignment is normal at the acromioclavicular and glenohumeral joints. No fracture or subluxation. There appear to be a few very small subchondral cysts of the distal clavicle at the minimally degenerated acromioclavicular joint. The subacromial space is maintained. No calcium deposition within rotator cuff tendons. The humeral head is well-positioned over the intact glenoid and the glenohumeral joint space is maintained. XR/XR shoulder LT min 2V IMPRESSION: * No fracture or malalignment. * Minimal osteoarthrosis of bilateral acromioclavicular joints. * No evidence of calcific tendinitis at either shoulder.
--- NOTE | ~2024-05-16 | XR_ITS ---
EXAMINATION: XR SHOULDER RIGHT XR SHOULDER LEFT CLINICAL INFORMATION: Chronic shoulder pain. Limited range of motion. COMPARISON: Radiographs from 12/11/2017 TECHNIQUE: Right shoulder, 4 views Left shoulder, 4 views FINDINGS: Right shoulder: Bones have normal alignment. No fracture or subluxation. There appears to be minimal degenerative subarticular cystic change at the acromioclavicular joint. There are no prominent osteophytes projecting from the undersurface of this joint. The subacromial space is maintained. No calcium deposition within rotator cuff tendons (i.e., no evidence of calcific tendinitis). The visualized right lung is unremarkable. Left shoulder: Alignment is normal at the acromioclavicular and glenohumeral joints. No fracture or subluxation. There appear to be a few very small subchondral cysts of the distal clavicle at the minimally degenerated acromioclavicular joint. The subacromial space is maintained. No calcium deposition within rotator cuff tendons. The humeral head is well-positioned over the intact glenoid and the glenohumeral joint space is maintained. XR/XR shoulder RT min 2V IMPRESSION: * No fracture or malalignment. * Minimal osteoarthrosis of bilateral acromioclavicular joints. * No evidence of calcific tendinitis at either shoulder.
== END 2024-05-16 13:33 | disposition home or self-care (01) ==
LOC: HO.HHCX 13:32
PROVIDERS: Visit Provider Internal Medicine
DX: M25.512 Pain in left shoulder (principal); M25.511 Pain in right shoulder; G89.29 Other chronic pain
CPT/HCPCS: 73030

== ENCOUNTER 2024-07-14 12:11 | Emergency (ER) | payer MEDICAID, SELFPAY ==
--- NOTE | ~2024-07-14 | XR_ITS ---
EXAMINATION: XR WRIST, RIGHT CLINICAL INFORMATION: Right wrist pain, swelling COMPARISON: None available. TECHNIQUE: PA, lateral, and oblique views of the right wrist. FINDINGS: No acute fracture. Old healed fracture of the fifth metacarpal. Alignment is anatomic with normal joint spaces. No erosions or abnormal soft tissue calcifications. XR/XR wrist RT min 3V IMPRESSION: No acute process. Old healed fracture of the fifth metacarpal. Electronically signed by: Shabbir Melendez MD 07/14/2024 02:04 PM EDT
--- NOTE | 2024-07-14 12:53 | ED.EXTPRO ---
HPI - Extremity Problem General Chief complaint: Skin/Abscess/Foreign Body Stated complaint: r hand lump-pain History of Present Illness HPI Narrative: LWCT Related Data Home Medications ?Medication ?Instructions ?Recorded ?Confirmed acetaminophen 650 mg 650 mg PO Q8H 09/15/20 09/15/20 tablet,extended release amlodipine 10 mg tablet (Norvasc) 10 mg PO DAILY 09/15/20 09/15/20 aspirin 81 mg tablet,delayed 81 mg PO DAILY 09/15/20 09/15/20 release atorvastatin 80 mg tablet (Lipitor) 80 mg PO DAILY 09/15/20 09/15/20 baclofen 10 mg tablet 10 mg PO TID 09/15/20 09/15/20 cholecalciferol (vitamin D3) 25 25 mcg PO DAILY 09/15/20 09/15/20 mcg (1,000 unit) capsule clonazepam 0.5 mg tablet (Klonopin) 0.5 mg PO BID 09/15/20 09/15/20 clotrimazole 1 % topical cream 1 applic topical BID 09/15/20 09/15/20 docusate sodium 100 mg capsule 100 mg PO BID 09/15/20 09/18/20 (Colace) ferrous sulfate 325 mg (65 mg 325 mg PO DAILY 09/15/20 09/15/20 iron) tablet hydrochlorothiazide 25 mg tablet 25 mg PO DAILY 09/15/20 09/15/20 insulin glargine 100 unit/mL (3 30 unit subcut DAILY 09/15/20 09/15/20 mL) subcutaneous pen (Lantus Solostar U-100 Insulin) metoprolol succinate 200 mg 200 mg PO DAILY 09/15/20 09/15/20 tablet,extended release 24 hr (Toprol XL) sildenafil 50 mg tablet (Viagra) 25 mg PO DAILY PRN 09/15/20 09/15/20 tamsulosin 0.4 mg capsule (Flomax) 0.4 mg PO DAILY 09/15/20 09/15/20 albuterol sulfate 90 mcg/actuation 2 puff inhalation Q4-6H PRN dyspnea 09/14/23 aerosol inhaler (Ventolin HFA) allopurinol 100 mg tablet 50 mg PO QAM 09/14/23 diclofenac sodium 1 % topical gel 2 g topical BID 09/14/23 dulaglutide 3 mg/0.5 mL mg subcut QWEEK 09/14/23 subcutaneous pen injector (Trulicity) empagliflozin 25 mg tablet 25 mg PO QAM 09/14/23 (Jardiance) escitalopram oxalate 20 mg tablet 30 mg PO QAM 09/14/23 fluticasone propionate 110 1 puff inhalation BID 09/14/23 mcg/actuation HFA aerosol inhaler (Flovent HFA) gabapentin 300 mg capsule 300 mg PO TID 09/14/23 naltrexone 50 mg tablet mg PO 09/14/23 prazosin 1 mg capsule 2 mg PO BEDTIME 09/14/23 tramadol 50 mg tablet 50 mg PO Q8H PRN severe pain 09/14/23 trazodone 100 mg tablet 200 mg PO BEDTIME 09/14/23 Previous Rx's ?Medication ?Instructions ?Recorded lidocaine 5 % topical patch 1 patch topical DAILY #15 ea 10/12/20 (Lidoderm) omeprazole 40 mg capsule,delayed 40 mg PO BID #60 caps 11/16/20 release linaclotide 72 mcg capsule 72 mcg PO QAM #30 caps 02/04/21 (Linzess) celecoxib 200 mg capsule (Celebrex) 200 mg PO BID PRN pain 30 days #60 09/14/23 caps Allergies Allergy/AdvReac Type Severity Reaction Status Date / Time No Known Allergies Allergy Verified 07/14/24 12:55 [No Known Allergies*] FORMERLY [facility] Past Medical History Medical History History of syphilis BPH (benign prostatic hyperplasia) Hyperplastic colon polyp (~2014) Hypertension 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 Hiatal hernia Nicotine dependence, cigarettes, uncomplicated Gallbladder polyp Depression Substance abuse MICH (obstructive sleep apnea) (~2014) Hyperlipidemia, unspecified Essential hypertension Surgical History History of foot surgery History of colonoscopy Family History Family History Mother Diabetes CAD (coronary artery disease) Hypertension Hyperlipidemia MICH (obstructive sleep apnea) Heart problem Father Alzheimer disease Depression Maternal Grandmother Heart problem Social History Social History Alcohol intake: never Advance Directives: No Advance Directives Information Provided: No Do you have a plan to hurt others: No Plan Physical Exam Vital Signs: Vital Signs: Last Vital Signs Temp 96.8 F 07/14/24 12:54 Pulse 52 07/14/24 12:54 Resp 16 07/14/24 12:54 BP 114/65 07/14/24 12:54 Pulse Ox 98 07/14/24 12:54 O2 Del Method Room Air 07/14/24 12:54 BMI result Body Mass Index 22.7 Course Course Course Narrative: This is an RME performed by Olvin Winston CNP: Additional HPI, ROS, PE not included below will be deferred to primary provider. Patient is a 63-year-old male right-hand dominant presenting to the emergency department for evaluation of redness and swelling to the right dorsal wrist. Reports it started as a small area and has progressively worsened. Onset was 4 days ago. Denies precipitating injury or identifiable cause. Did not use any OTC analgesics or ice. Denies fevers or chills. Plan: Labs, XR Medical Decision Making Lab Data 07/14/24 13:11 07/14/24 13:11 Labs: Lab Results 07/14/24 Range/Units 13:11 WBC 7.0 (4.8-10.8) X10*3/uL RBC 4.34 L (4.60-5.80) X10*6/uL Hgb 14.3 (14.0-18.0) g/dl Hct 42.8 (42.0-52.0) % MCV 98.6 H (80.0-98.0) fL MCH 32.9 (27.0-33.0) pg MCHC 33.4 (31.0-36.0) g/dl RDW 12.8 (11.0-16.0) % Plt Count 117 L (160-400) X10*3/uL MPV 12.4 (9.4-12.4) fL Immature Gran % (Auto) 0.6 H (0.0-0.4) % Neut % (Auto) 62.2 (45-73) % Lymph % (Auto) 23.7 (20-40) % [place] % (Auto) 11.5 H (2-11) % Eos % (Auto) 1.6 (0-4) % Baso % (Auto) 0.4 (0-2) % Lymph # (Auto) 1.7 (1.2-4.9) X10*3/uL [place] # (Auto) 0.8 (0.1-1.2) X10*3/uL Eos # (Auto) 0.1 (0.0-0.4) X10*3/uL Baso # (Auto) 0.0 (0.0-0.2) X10*3/uL Abs Immat Gran (auto) 0.04 H (0.00-0.03) X10*3/uL Absolute Neuts (auto) 4.4 (2.0-8.3) x10*3/uL Absolute Nucleated RBC 0.000 (0.0-0.012) X10*3/uL Nucleated RBC % (auto) 0.0 (0.0-0.2) /100WBC ESR 16 H (0-15) MM/HR Sodium 140 (135-145) mmol/L Potassium 4.0 (3.3-5.1) mmol/L Chloride 100 (96-108) mmol/L Carbon Dioxide 32 H (22-29) mmol/L Anion Gap 12 (12-20) BUN 14 (9-16) mg/dL Creatinine 1.16 (0.5-1.4) mg/dL Estim Creat Clear Calc 61.4 Estimated GFR > 60 Random Glucose 257 H (60-115) mg/dL Calcium 9.7 (8.4-10.2) mg/dL C-Reactive Protein 0.38 (< or = 0.50) mg/dL Discharge Plan Discharge Clinical Impression: Pain in wrist Patient Disposition: Left W/O Completing Treatment Prescriptions: No Action omeprazole 40 mg capsule,delayed release(DR/EC) 40 mg PO BID Qty: 60 6RF linaclotide [Linzess] 72 mcg capsule 72 mcg PO QAM Qty: 30 2RF lidocaine [Lidoderm] 5 % adhesive patch,medicated 1 patch topical DAILY Qty: 15 0RF Rx Instructions: leave on most painful area for up to 12 hrs clonazepam [Klonopin] 0.5 mg tablet 0.5 mg PO BID sildenafil [Viagra] 50 mg tablet 25 mg PO DAILY PRN Rx Instructions: administer 30 minutes to 4 hours before activity atorvastatin [Lipitor] 80 mg tablet 80 mg PO DAILY acetaminophen 650 mg tablet extended release 650 mg PO Q8H tamsulosin [Flomax] 0.4 mg capsule 0.4 mg PO DAILY cholecalciferol (vitamin D3) 25 mcg (1,000 unit) capsule 25 mcg PO DAILY baclofen 10 mg tablet 10 mg PO TID Rx Instructions: NEEDED clotrimazole 1 % cream 1 applic topical BID amlodipine [Norvasc] 10 mg tablet 10 mg PO DAILY Lantus Solostar U-100 Insulin 100 unit/mL (3 mL) insulin pen 30 unit subcut DAILY docusate sodium [Colace] 100 mg capsule 100 mg PO BID hydrochlorothiazide 25 mg tablet 25 mg PO DAILY aspirin 81 mg tablet,delayed release (DR/EC) 81 mg PO DAILY metoprolol succinate [Toprol XL] 200 mg tablet extended release 24 hr 200 mg PO DAILY ferrous sulfate 325 mg (65 mg iron) tablet 325 mg PO DAILY allopurinol 100 mg tablet 50 mg PO QAM diclofenac sodium 1 % gel 2 g topical BID Trulicity 3 mg/0.5 mL pen injector subcut QWEEK Jardiance 25 mg tablet 25 mg PO QAM escitalopram oxalate 20 mg tablet 30 mg PO QAM fluticasone propionate [Flovent HFA] 110 mcg/actuation HFA aerosol inhaler 1 puff inhalation BID gabapentin 300 mg capsule 300 mg PO TID albuterol sulfate [Ventolin HFA] 90 mcg/actuation HFA aerosol inhaler 2 puff inhalation Q4-6H PRN (Reason: dyspnea) prazosin 1 mg capsule 2 mg PO BEDTIME trazodone 100 mg tablet 200 mg PO BEDTIME tramadol 50 mg tablet 50 mg PO Q8H PRN (Reason: severe pain) naltrexone 50 mg tablet PO celecoxib [Celebrex] 200 mg capsule 200 mg PO BID PRN (Reason: pain) 30 Days Qty: 60 1RF Rx Instructions: Take it with food and full glass of water Discharge Date/Time: 07/14/24 16:43
[2024-07-14 12:54] VITALS: BP 114/65; PULSE 52; RESP 16; TEMP 36; O2SAT 98; BMI 22.7
[2024-07-14 13:29] LABS: MANUAL DIFF FLAG NO
[2024-07-14 13:31] LABS: Basophils Percent Auto 0.4 % (0-2); Eosinophils Absolute Auto 0.1 X10*3/uL (0.0-0.4); Eosinophils Percent Auto 1.6 % (0-4); Hematocrit 42.8 % (42.0-52.0); Hemoglobin 14.3 g/dl (14.0-18.0); Imm Gran Abs Auto 0.04 X10*3/uL (0.00-0.03); Imm Gran Pct Auto 0.6 % (0.0-0.4); Lymphocytes Absolute Auto 1.7 X10*3/uL (1.2-4.9); Lymphocytes Percent Auto 23.7 % (20-40); Mean Corpuscular HGB Conc 33.4 g/dl (31.0-36.0); Mean Corpuscular Hemoglobin 32.9 pg (27.0-33.0); Mean Corpuscular Volume 98.6 fL (80.0-98.0); Mean Platelet Volume 12.4 fL (9.4-12.4); Monocytes Absolute Auto 0.8 X10*3/uL (0.1-1.2); Monocytes Percent Auto 11.5 % (2-11); Neutrophils Absolute Auto 4.4 x10*3/uL (2.0-8.3); Neutrophils Percent Auto 62.2 % (45-73); Platelet Count 117 X10*3/uL (160-400); Red Blood Count 4.34 X10*6/uL (4.60-5.80); Red Cell Distribution Width 12.8 % (11.0-16.0)
[2024-07-14 13:45] LABS: Anion Gap 12 (12-20); Blood Urea Nitrogen 14 mg/dL (9-16); C Reactive Protein 0.38 mg/dL (< or = 0.50); Calcium 9.7 mg/dL (8.4-10.2); Carbon Dioxide 32 mmol/L (22-29); Chloride 100 mmol/L (96-108); Creatinine Clr Calc Pharmacy 61.4; Estimated Glomerular Filt Rate > 60; Glucose Random 257 mg/dL (60-115); Sodium 140 mmol/L (135-145)
[2024-07-14 14:14] LABS: Erythrocyte Sedimentation Rate 16 MM/HR (0-15)
== END 2024-07-14 16:43 | disposition left against medical advice (07) ==
LOC: HO.ED 15:59
PROVIDERS: Nurse Practitioner Family; Emergency Provider Emergency Medicine
DX: M25.531 Pain in right wrist (principal); E11.22 Type 2 diabetes mellitus with diabetic chronic kidney disease; I12.9 Hypertensive chronic kidney disease with stage 1 through stage 4 chronic kidney disease, or unspecified chronic kidney disease; N18.30 Chronic kidney disease, stage 3 unspecified; Z79.899 Other long term (current) drug therapy; Z79.4 Long term (current) use of insulin
CPT/HCPCS: 36415; 73110; 80048; 85025; 85652; 86140; 99281; 99283

== ENCOUNTER 2024-08-14 14:00 | Outpatient (AMB) | payer MEDICAID, SELFPAY ==
[2024-08-14 14:02] VITALS: BMI 22.7
--- NOTE | 2024-08-14 14:02 | MHC.OFFVIS ---
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 He describes his pains as sharp in nature. His pains have gotten worse over the last few years in spite of continued non operative treatments. He has done physical therapy exercises which aggravated his pain. He has also tried Tylenol and anti-inflammatory medicines which gave him minimal relief. He wishes to hold off on surgery if at all possible. Plating Department Helper Required: Yes Plating Department Helper Language: Pool Technician Name: Phong Varags [id number] Allergies No Known Allergies [No Known Allergies*] Allergy (Verified 08/14/24 14:09) Medication List - Last Reconciled 08/15/24 by Damien Sanchez MD acetaminophen ER 650 mg PO Q8H albuterol sulfate 90 mcg/actuation (Ventolin HFA) 2 puffs inhalation Q4-6H PRN allopurinol 50 mg PO QAM amlodipine (Norvasc) 10 mg PO DAILY aspirin 81 mg PO DAILY atorvastatin (Lipitor) 80 mg PO DAILY baclofen 10 mg PO TID celecoxib (Celebrex) 200 mg PO BID PRN 30 days cholecalciferol (vitamin D3) 25 mcg PO DAILY clonazepam (Klonopin) 0.5 mg PO BID clotrimazole 1% 1 appl topical BID diclofenac sodium 1% 2 grams topical BID docusate sodium (Colace) 100 mg PO BID dulaglutide (Trulicity) mg subcut QWEEK empagliflozin (Jardiance) 25 mg PO QAM escitalopram oxalate 30 mg PO QAM ferrous sulfate 325 mg PO DAILY fluticasone propionate 110 mcg/actuation (Flovent HFA) 1 puff inhalation BID gabapentin 300 mg PO TID hydrochlorothiazide 25 mg PO DAILY insulin glargine (Lantus Solostar U-100 Insulin) 30 units subcut DAILY lidocaine 5% (Lidoderm) 1 patch topical DAILY linaclotide (Linzess) 72 mcg PO QAM metoprolol succinate ER (Toprol XL) 200 mg PO DAILY naltrexone mg PO omeprazole 40 mg PO BID prazosin 2 mg PO BEDTIME sildenafil (Viagra) 25 mg PO DAILY PRN tamsulosin (Flomax) 0.4 mg PO DAILY tramadol 50 mg PO Q8H PRN trazodone 200 mg PO BEDTIME PFSH Medical History History of syphilis BPH (benign prostatic hyperplasia) Hyperplastic colon polyp (~2014) Hypertension 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 Hiatal hernia Nicotine dependence, cigarettes, uncomplicated Gallbladder polyp Depression Substance abuse MICH (obstructive sleep apnea) (~2014) Hyperlipidemia, unspecified Essential hypertension Surgical History History of foot surgery History of colonoscopy Family History Mother Diabetes CAD (coronary artery disease) Hypertension Hyperlipidemia MICH (obstructive sleep apnea) Heart problem Father Alzheimer disease Depression Maternal Grandmother Heart problem Social History Alcohol intake: never Physical Exam Vital Signs: BMI result Body Mass Index 22.7 Const Other: Well-nourished well-developed very friendly male awake alert and oriented x3 in no acute distress Extrem Other: Bilateral lower extremity examination shows good capillary refill, no skin lesions noted, normal sensation light touch Bilateral knee examination shows minimal effusions, palpable crepitus with range motion, pain with range of motion, no instability Office Procedures Joint Injection/Aspiration Joint Injection/Aspiration Primary Site: left knee Prep: site was prepped using aseptic technique Injected: 40 mg of, DepoMedrol and 1% plain lidocaine Procedure: The patient tolerated the procedure well Coding 59976 - Large joint Procedure code (CPT) selection complete Results Reviewed Results Reviewed: X-rays of the patient's bilateral knee show joint space narrowing, subchondral sclerosis, no acute bony abnormalities Assessment & Plan Assessment & Plan (1) Arthritis of left knee: Code(s): M17.12 - Unilateral primary osteoarthritis, left knee Category: Medical (2) Bilateral knee pain: Code(s): M25.561 - Pain in right knee; M25.562 - Pain in left knee Category: Medical Plan Pablito presents with bilateral knee pains, left greater than right, due to degenerative joint disease. I had a lengthy discussion with the patient regarding the treatment options. He wishes to hold off on surgery if at all possible. I agree with this plan. The risks and benefits of a left knee cortisone injection were discussed at length with the patient. The patient wished to proceed. He tolerated the injection well. I will see him back in 3-4 weeks for repeat clinical examination and possible right knee cortisone injection. Feel free to call me at any time should questions regarding his orthopedic management arise. Thank you very much for asking me to see this very friendly gentleman. I spent 22 minutes in reviewing the patient's records and imaging studies, seeing the patient and documenting in the medical record. Orders: Orders AMB Joint Injection/Aspiration 08/14/24 M17.12 - Unilateral primary osteoarthritis, left knee Coding Level of Care Code New Pt Level 3 (31946) Complex EM visit Add On G2211 Diagnoses Arthritis of left knee M17.12 Bilateral knee pain M25.561; M25.562 CPT Codes Coding - 83315 Large joint: 05018 - Large joint ([id number])
== END 2024-08-14 14:22 | disposition home or self-care (01) ==
PROVIDERS: Visit Provider Orthopaedic Surgery
DX: M17.12 Unilateral primary osteoarthritis, left knee (principal); M25.561 Pain in right knee
CPT/HCPCS: 20610; 99203

== ENCOUNTER → 2024-08-14 14:00 | Outpatient (BNVA) | payer MEDICAID, SELFPAY | PROVIDERS: Visit Provider Orthopaedic Surgery | DX: M17.12 Unilateral primary osteoarthritis, left knee (principal); M25.562 Pain in left knee; M25.561 Pain in right knee | CPT/HCPCS: 20610; 99202; J1010; J2003 ==

== ENCOUNTER 2024-11-07 10:24 | Outpatient (AMB) | payer MEDICAID, SELFPAY ==
[2024-11-07 10:25] VITALS: BMI 26.1
--- NOTE | 2024-11-07 10:25 | MHC.OFFVIS ---
Vital Signs 11/07/24 10:25 Height 5 ft 7 in Weight 166 lb 8 oz BMI 26.1 Intake Visit Reasons: Radiologic (L) Volvar distal object arm Intake Note: This patient presents for Radiologic (L) Volvar distal object arm, foreign body. Pt c/o; Right wrist, pain. 07/14/2024: Wrist X-ray Brick Maker Required: Yes Brick Maker Language: Associate Professor Of Pathology Services: Brick Maker Present Brick Maker Name: Tonio Information Interpreted: non-clinical & clinical Accompanied by: Self / Same As Patient Allergies No Known Allergies [No Known Allergies*] Allergy (Verified 11/07/24 10:25) Medication List - Last Reconciled 11/07/24 by Arun Thomas MD acetaminophen ER 650 mg PO Q8H albuterol sulfate 90 mcg/actuation (Ventolin HFA) 2 puffs inhalation Q4-6H PRN allopurinol 50 mg PO QAM amlodipine (Norvasc) 10 mg PO DAILY aspirin 81 mg PO DAILY atorvastatin (Lipitor) 80 mg PO DAILY baclofen 10 mg PO TID celecoxib (Celebrex) 200 mg PO BID PRN 30 days cholecalciferol (vitamin D3) 25 mcg PO DAILY clonazepam (Klonopin) 0.5 mg PO BID clotrimazole 1% 1 appl topical BID diclofenac sodium 1% 2 grams topical BID docusate sodium (Colace) 100 mg PO BID dulaglutide (Trulicity) mg subcut QWEEK empagliflozin (Jardiance) 25 mg PO QAM escitalopram oxalate 30 mg PO QAM ferrous sulfate 325 mg PO DAILY fluticasone furoate 100 mcg/actuation (Arnuity Ellipta) 1 inh inhalation DAILY fluticasone propionate 110 mcg/actuation (Flovent HFA) 1 puff inhalation BID gabapentin 300 mg PO TID hydrochlorothiazide 25 mg PO DAILY insulin glargine (Lantus Solostar U-100 Insulin) 30 units subcut DAILY lidocaine 5% (Lidoderm) 1 patch topical DAILY linaclotide (Linzess) 72 mcg PO QAM metoprolol succinate ER (Toprol XL) 200 mg PO DAILY naltrexone mg PO omeprazole 40 mg PO BID prazosin 2 mg PO BEDTIME sertraline mg PO sildenafil (Viagra) 25 mg PO DAILY PRN tamsulosin (Flomax) 0.4 mg PO DAILY tirzepatide (Mounjaro) mg subcut QWEEK tramadol 50 mg PO Q8H PRN trazodone 200 mg PO BEDTIME ziprasidone HCl mg PO HPI HPI Radiologic (L) Volvar distal object arm: Details: 64-year-old male referred by his primary care physician for a question of a foreign body. The patient actually describes a firm area on the 5th metacarpal where he previously had a fracture many years ago after he punched a wall. He denies any palpable foreign body. He denies any redness or discharge. [facility] Medical History (Updated 11/07/24 @ 10:37 by Arun Thomas MD) Healed fracture Personal history of nicotine dependence History of syphilis BPH (benign prostatic hyperplasia) Hyperplastic colon polyp (~2014) Hypertension 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 Hiatal hernia Gallbladder polyp Depression Substance abuse MICH (obstructive sleep apnea) (~2014) Hyperlipidemia, unspecified Essential hypertension Surgical History History of foot surgery History of colonoscopy Family History Mother Diabetes CAD (coronary artery disease) Hypertension Hyperlipidemia MICH (obstructive sleep apnea) Heart problem Father Alzheimer disease Depression Maternal Grandmother Heart problem Social History Alcohol intake: never Years Smoked: (onset 18yo, 1/2ppd x 45yrs, 20pyh - quit 04/2023) Review of Systems Const Denies chills and Denies fever(s) Card Denies chest pain, Denies dyspnea and Denies dyspnea on exertion Resp Denies cough, Denies dyspnea and Denies dyspnea on exertion GI Denies hematochezia and Denies change in bowel habits Denies hematuria and Denies difficulty urinating Musc Denies back pain and Denies limited range of motion Neuro Denies focal weakness and Denies convulsions Psych Denies depression and Denies mood swings Physical Exam Vital Signs: BMI result Body Mass Index 26.1 Const General: comfortable and no acute distress Resp Effort & Inspection: normal respiratory effort Cardio Rate: regular rate Extrem Other: No skin changes, no no skin changes, no palpable foreign body on the right hand Assessment & Plan Assessment & Plan (1) Healed fracture: Code(s): Z87.81 - Personal history of (healed) traumatic fracture Category: Medical Plan: I have reviewed his x-ray from June,. There was no foreign body seen. He has an old healed fracture of the 5th metacarpal. He does not require any intervention. Coding Level of Care Code New Pt Level 3 (65230) Diagnoses Healed fracture Z87.81
== END 2024-11-07 10:35 | disposition home or self-care (01) ==
LOC: HO.HGS 10:24
PROVIDERS: PCP Family Medicine; Visit Provider Surgery
DX: Z87.81 Personal history of (healed) traumatic fracture (principal)
CPT/HCPCS: 99213

== ENCOUNTER → 2024-11-07 10:24 | Outpatient (BNVA) | payer MEDICAID, SELFPAY | PROVIDERS: PCP Family Medicine; Visit Provider Surgery | DX: Z87.81 Personal history of (healed) traumatic fracture (principal) | CPT/HCPCS: 99212 ==

== ENCOUNTER 2024-11-29 07:52 | Outpatient (REF) | payer MEDICAID, SELFPAY ==
--- OUTSIDE RECORDS SUMMARY | 2024-11-29 07:55 | XMS_ITS | Encounter Summary ---
Author Organization [employer] Address [address] [place] [address] Care Team Providers Care Registered Veterinary Technician Name Role Phone NavarroTrinidad Primary Care Provider Sola Isidro PharmD Unavailable [phone] Reason for Visit * Reason Comments Diabetic Eye Exam Encounter Details Date Type Department Care Team (Late st Contact Info) Description 11/12/2024 1:00 PM EST Office Visit [facility] [address] [place] [address] Pradip, Shyanne, OD [address] [place] [address] Diabetes type 2, no ocular involvement (CMS/HCC) (Primary Dx); Early dry stage nonexudative age-related macular degeneration of both eyes; Dry eyes, bilateral; Age-related nuclear cataract of both eyes; Chorioretinal scar, right eye; Presbyopia Social History Tobacco Use Types Packs/Day Years Used Date Smoking Tobacco: Some Days Cigarettes Passive Smoke Exposure: Past Alcohol Use Standard Drinks/Week Comments Not Currently 0 (1 standard drink = 0.6 oz pur e alcohol) Alcohol Answer Date Recorded Frequency of Alcohol Consumption Not on file 01/04/2024 Average Number of Drinks Not on file 024 Frequency of Binge Drinking Not on file 04/2024 Score 0 01/04/2024 Depression Answer Date Recorded Patient Health Questionnaire-9 Score 6 06/11/2024 Patient Health Questionnaire-9 Score 6 06/11/2024 Last PHQ-9: Questionnaire Data Not on file 0 06/11/2024 Housing Stability Answer Date Recorded What is your housing situation today? I have daylin sing 08/18/[address] you li ve. Do you have problems with any of the following? None of the above 08/18/2023 Food Insecurity Answer Date Recorded Within the past 12 months, y ou worried that your food would run out before you got money to buy more: Never True 01/04/2024 Within the past 12 months,th e food you bought just didn't last and you didn't have enough money to get more: Never True 04/2024 Transportation Answer Date Recorded In the past 12 months, has l ack of transportation kept you from medical appts, meetings, work or from getting things needed for daily living? No 08/18/2023 Utilities Answer Date Recorded In the past 12 months, has t he electric, gas, oil or water company threatened to shut off services in your home? No 08/18/2023 Depression Answer Date Recorded Patient Health Questionnaire-2 Score 4 06/11/2024 Sex and Gender Information Value Date Recorded Sex Assigned at Male 08/29/2022 10:26 AM EDT Legal Sex Male 10:26 AM EDT Gender Identity Choose not to disclose 10:26 AM EDT Sexual Orientation Straight 08/29/2022 10 :26 AM EDT documented as of this encounter Plan of Treatment Upcoming Encounters Date Type Department Care Team (Late st Contact Info) Description 12/11/2024 11:00 AM EST Office Visit [address] [address] Trinidad Briceño DO [address] [place] [phone] 12/19/2024 1:00 PM EST Medication Management [facility] [address] [place] [phone] Sola Isidro PharmD [address] [place] [address] 01/10/2025 1:00 PM EDT Office Visit [address] [address] Alvaro Luo MD [address] [place] [phone] Pending Results Name Type Priority Associated Diagnoses Date /Time OCT, Retina - OU - Both Eyes Ophthalmology Routine Early dry stage nonexudative age-related macular degeneration of both eyes 11/12/2024 3:57 PM EST documented as of this encounter Goals Goal Patient Goal Type Associated Problems Recent Progress Patient-Stated? Author Hemoglobin A1c < 7 Result Component 7.9( 4 2:30 PM EST) No Velasquez York PharmD Record your blood sugar as directed Result Component No Sola Isidro PharmD Note: Use CGM, ensuring sensor is scanned at least once every 8 hours to capture 24H data. Check BG manually, as directed. documented as of this encounter Visit Diagnoses Diagnosis Diabetes type 2, no ocular involvement ([facility])- Primary Early dry stage nonexudative age-related macular degeneration of both eyes Dry eyes, bilateral Age-related nuclear cataract of both eyes Chorioretinal scar, right eye Unspecified chorioretinal scar Presbyopia documented in this encounter Additional Health Concerns Assessment Noted Time PHQ-9 Depression Total Score: 6 06/11/20 24 9:03 AM EDT documented as of this encounter Care Teams Registered Veterinary Technician Relationship Specialty Start Date End Date Trinidad Briceño DO [address] [place] [address] PCP - General Family Medicine 02/05/14 Sola Isidro PharmD [address] [place] [address] Pharmacist Internal Medicine 08/11/23 Amber Storm Fingernail TechnicianCorrugator 01/25/24 documented as of this encounter
--- OUTSIDE RECORDS SUMMARY | 2024-11-29 07:55 | XMS_ITS | Encounter Summary ---
Author Organization [employer] Address [address] [facility] [address] [place] [address] Care Team Providers Care Junior Administrative Assistant Name Role Phone NavarroLuz ElenaTrinidad Primary Care Provider [phone] Sola Isidro PharmD Unavailable [phone] Encounter Details Date Type Department Care Team (Latest Contact Info) Description 11/26/2024 Travel Social History Tobacco Use Types Packs/Day Years [...] your housing situation today? I have daylin cortes 08/18/[address] you li [...] Description 12/11/2024 11:00 AM EST Office Visit [address] [address] Trinidad Briceño DO [address] [place] [address] 12/19/2024 1:00 PM EST Medication Management [address] [address] Sola Isidro PharmD [address] [place] [phone] 01/10/2025 1:00 PM EDT Office Visit [address] [address] Alvaro Luo MD [address] [place] [phone] documented as of this encounter Goals Goal [...] documented as of this encounter Visit Diagnoses Not on filedocumented in this encounter Additional Health Concerns Assessment Noted Time PHQ-9 Depression Total Score: 6 06/11/20 24 9:03 AM EDT documented as of this encounter Care Teams Junior Administrative Assistant Relationship Specialty Start Date End Date Trinidad Briceño DO [address] [place] [address] PCP - General Family Medicine 02/05/14 Sola Isidro PharmD [address] [place] [address] Pharmacist Internal Medicine 08/11/23 Amber Storm Borematic OperatorProject Assistant 01/25/24 documented as of this encounter
--- OUTSIDE RECORDS SUMMARY | 2024-11-29 07:55 | XMS_ITS | Encounter Summary ---
Author Organization [employer] Address [address] [facility] [address] [place] [address] Care Team Providers Care Eligibility Manager Name Role Phone NavarroTrinidad Primary Care Provider Sola Isidro PharmD Unavailable [phone] Reason for Visit * Reason Comments Acupuncture Encounter Details Date Type Department Care Team ([facility] st Contact Info) Description 11/26/2024 9:30 AM EST Office Visit [facility] [address] [place] [address] Amanda Adame MD [address] [place] [address] Chronic bilateral low back pain without sciatica (Primary Dx) Social History Tobacco Use Types Packs/Day Years [...] the past 12 months, has t he [employer], gas, oil or water company threatened to [...] AM EDT documented as of this encounter Progress Notes * Amanda Adame MD - 11/26/2024 9:30 AM EST Subjective Patient ID: Pablito Marie is a 64 y.o. adult who presents for Acupuncture. Pablito is here for ongoing acupuncture treatments for chronic back pain and anxiety. He is experiencing temporary pain reduction and stress relief. Review of Systems Musculoskeletal: Positive for back pain. Psychiatric/Behavioral: The patient is nervous/anxious. Objective Physical Exam Constitutional: Appearance: Normal appearance. Skin: General: Skin is warm and dry. Neurological: Mental Status: Pablito is alert and oriented to person, place, and time. Assessment/Plan Diagnoses and all orders for this visit: Chronic bilateral low back pain without sciatica Written consent obtained for ear acupuncture. Ears prepped with alcohol pad. Five ear points needled bilaterally: Sympathetic, Garner Men, Kidney, Liver and Lung. Treatment duration: 30 minutes. Good hemostasis. Patient tolerated well. Follow up weekly for repeat acupuncture treatments as desired. documented in this encounter Plan of Treatment Upcoming Encounters Date Type Department Care Team (Late st Contact Info) Description 12/11/2024 11:00 AM EST Office Visit [address] [address] Trinidad Briceño DO [address] [place] [address] 12/19/2024 1:00 PM EST Medication Management [address] [address] Sola Isidro PharmGiselle [address] [place] [address] 01/10/2025 1:00 PM EDT Office Visit [address] [phone] Alvaro Luo MD [address] [place] [address] documented as of this encounter Goals Goal [...] as of this encounter Visit Diagnoses Diagnosis Chronic bilateral low back pain without sciatica- Primary documented in this encounter Additional Health Concerns Assessment Noted Time PHQ-9 Depression Total Score: 6 06/11/20 24 9:03 AM EDT documented as of this encounter Care Teams Eligibility Manager Relationship Specialty Start Date End Date Trinidad Briceño DO [address] [place] [id number] PCP - General Family Medicine 02/05/14 Sola Isidro PharmD [address] [place] [phone] Pharmacist Internal Medicine 08/11/23 Amber Storm Retail Service TechnicianJig Maker 01/25/24 documented as of this encounter
--- OUTSIDE RECORDS SUMMARY | 2024-11-29 07:55 | XMS_ITS | Encounter Summary ---
Author Organization [facility] Address [address] [place] [address] Care Team Providers Care Shell Maker Lockstitch Name Role Phone Physician, Pcp Unknown Primary Care Provider Nhi vailable Reason for Visit * Reason Comments DM Foot Care Nail Problem Encounter Details Date Type Department Care Team ([facility] st Contact Info) Description 11/28/2024 1:45 PM EST Office Visit Orthopedic Surgery - [place] [id number] [address] Blade Agee DPM [address] [address] Cellulitis of great toe, right (Primary Dx); Ingrowing nail; Dermatophytosis of nail Social History Tobacco Use Types Packs/Day Years Used Date Smoking Tobacco: Never Assessed Sex and Gender Information Value Date Recorded Sex Assigned at Not on file Gender Identity Not on file Sexual Orientation Not on file Job Start Date Occupation Industry Not on file Not on file Not on file documented as of this encounter Ordered Prescriptions Prescription Sig Dispensed Refills Start Date End Da te silver sulfADIAZINE (Silvadene) 1 % cream Apply topically 1 (one) time each day. 50 g 11/28/2024 11/28/2025 cephalexin (KEFLEX) 500 mg capsule Take 1 capsule (500 mg total) by mouth 3 (three) times a day for 10 days. 30 each 11/28/2024 12/08/2024 documented in this encounter Progress Notes * Blade Agee DPM - 11/28/2024 1:45 PM EST S Patient is a complaining pain in his feet patient is a type II diabetic shoes he gets numbness and tingling to his feet distally has a lesion or growth on the left foot as well as pain in his toenails elongated painful thickened all 10 toenails but his right great toe is the worst states that for prolonged period time states makes it double from to take care of himself and is been going on for prolonged period of time states early ingrown feels infected red swollen and more painful recently lost to 3 weeks 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 Pt in NAD. CARDIOLOGY: pt denies chest pain, palpitations LUNGS: pt denies shortness of breath MUSCULOSKELETAL: See HPI, otherwise no joint pain or swelling, back pain, or muscle pain. SKIN: see HPI, otherwise no lesions, rash or itching NEURO: No persistent headache, weakness or numbness The remainder of the review of systems is noncontributory PAST MEDICAL HISTORY: Patient Active Problem List Diagnosis Code Anxiety disorder F41.9 BPH (benign prostatic hyperplasia) N40.0 Alcohol use disorder F10.90 History of substance abuse ([facility]) F19.11 Essential hypertension, benign I10 Mood disorder ([facility]) F39 Major depression, recurrent, chronic ([facility]) F33.9 Chronic GERD K21.9 MICH (obstructive sleep apnea) G47.33 CKD (chronic kidney disease) N18.9 Erectile dysfunction N52.9 T2DM (type 2 diabetes mellitus) ([facility]) E11.9 Hyperlipidemia E78.5 Fatty liver K76.0 Gallbladder polyp K82.4 Chronic low back pain M54.50, G89.29 History of tobacco use Z87.891 Rectal bleeding K62.5 Chorioretinal scar, 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 ACTIVE MEDICATIONS: Current Outpatient Medications Medication Sig Dispense Refill Diclofenac Sodium 1 % Gel Apply 4 g topically 2 times daily. 100 g 2 Albuterol Sulfate 108 (90 Base) MCG/ACT AEROSOL POWDER,BREATH ACTIVATED Inhale into the lungs. allopurinol (ZYLOPRIM) 100 MG tablet Take 1 Tablet by mouth daily. amlodipine (NORVASC) 10 MG tablet Take 1 Tablet by mouth daily. aspirin 81 MG chewable tablet Take 1 Tablet by mouth daily. atorvastatin (LIPITOR) 80 MG tablet Take 1 Tablet by mouth daily. baclofen (LIORESAL) 10 MG tablet Take 1 Tablet by mouth 3 times daily. Diclofenac Sodium 1 % Gel Apply topically. clotrimazole (LOTRIMIN) 1 % cream Apply topically 2 times daily. clonazepam (KLONOPIN) 0.5 MG tablet Take 1 Tablet by mouth 2 times daily as needed. Cetirizine HCl 10 MG Cap Take 10 mg by mouth. celecoxib (CELEBREX) 200 MG capsule Take 1 Capsule by mouth 2 times daily. Dulaglutide 0.75 MG/0.5ML Solution Pen-injector Inject 0.75 mg into the skin once a week. Empagliflozin 25 MG Tab Take 25 mg by mouth every morning. escitalopram (LEXAPRO) 20 MG tablet Take 1 Tablet by mouth daily. ferrous sulfate 325 (65 Fe) MG tablet Take 1 Tablet by mouth daily. Fluticasone Furoate 100 MCG/ACT AEROSOL POWDER,BREATH ACTIVATED Inhale into the lungs. gabapentin (NEURONTIN) 300 MG capsule Take 1 Capsule by mouth 3 times daily. hydrochlorothiazide (HYDRODIURIL) 25 MG tablet Take 1 Tablet by mouth every morning. Insulin Glargine 100 UNIT/ML Solution Pen-injector Inject into the skin. lidocaine (LIDODERM) 5 % Place 1 Patch onto the skin every 24 hours. Apply for no more than 12 hours in any 24 hour period. METOPROLOL SUCCINATE OR Take 200 mg by mouth every morning. MULTIPLE VITAMINS-MINERALS OR Take by mouth. naltrexone (DEPADE) 50 MG tablet Take 1 Tablet by mouth daily. OMEPRAZOLE OR Take 40 mg by mouth daily. prazosin (MINIPRESS) 1 MG capsule Take 1 Capsule by mouth at bedtime. tamsulosin (FLOMAX) 0.4 MG 24 hr capsule Take 1 Capsule by mouth daily. Take 30 mins after same meal every day. trazodone (DESYREL) 100 MG tablet Take 1 Tablet by mouth at bedtime. TRAMADOL HCL OR Take 50 mg by mouth every 8 hours as needed. No current facility-administered medications for this visit. ALLERGIES: Patient has no allergy information on record. PHYSICAL EXAM: Height 5' 7 (1.702 m), weight 160 lb (72.6 kg). Estimated body mass index is 25.06 kg/m?? as calculated from the following: Height as of this encounter: 5' 7 (1.702 m). Weight as of this encounter: 160 lb (72.6 kg). PODIATRIC EXAMINATION: GENERAL: Patient appears well nourished, with NAD. VASCULAR: Dorsalis pedis pulses are 2/4 bilaterally and Posterior tibial pulses are 2/4 bilaterally. Capillary filling time within normal limits the digits. No pallor on elevation or rubor on dependency. Positive hair growth. No varicosities. Denies rest pain or claudication pain. NEUROLOGICAL: Sharp/dull sensation , protective sensation Intact 10/10 with 5.07 semmes piotr bilaterally, vibratory sensation with tuning fork intact to the tibial tuberosity. ORTHOPEDIC: Good muscle strength 5/5 of all flexors and extensors. Dorsi flexion of ankle ,10 degrees, plantar flexion WNL. No muscle atrophy. DERMATOLOGICAL:. Severe abnormal curvature right great toenail ingrowth medial nail fold localized cellulitis Toenails: Left Toenail(s) 1-5: Crumbling upon debridement, subungual debris, discoloration, dystrophy, elongation, mycotic appearance, onychomycosis, pain and thickening. Right Toenail(s) 1-5: Crumbling upon debridement, subungual debris, discoloration, dystrophy, elongation, mycotic appearance, onychomycosis, pain and thickening. Annular scaling bilateral feet moccasin distribution BIOMECHANICS: STJ ROM wnl, MTJ ROM wnl, 1st MPJ ROM wnl. Medial band left foot palpable fibroma of the midfoot measuring 1.7 cm in diameter thickened well adhered well-defined within fascial band Negative heel squeeze pain, Negative lateral calcaneal wall pain, Negative posterior heel pain. Negative pain of the achilles insertion. Negative tinells. Negative pain of the posterior tibial tendon. No palpable fibrous mass mid arch. IMAGING: IMPRESSION: 1. Cellulitis of great toe, right 2. Ingrowing nail 3. Dermatophytosis of nail PLAN: Pt was seen and examined, history reviewed. Due to concerns for infection of her great toe discussed treatment optically nail removal Keflex prescribed 10-day course Silvadene prescribed Post procedure instructions given Follow-up in 2 weeks Procedure 42722: Avulsion single toenail -right great toe complete nail removal informed consent was obtained from the patient. Partial avulsion with incision and drainage was performed on the toe. Sterile prep was performed. After the site was prepared with Ethyl Chloride spray, 6 ml of 1% Lidocaine was injected without difficulty. Complete nail removal was then performed DSD applied with topical antibiotic ointment. The patient was instructed on signs and symptoms of infection and what to look for,and was told to call and come in immediately should any problems and/or questions arise. Discussed partial nail avulsion with matrixectomy of the affected hallux if symptoms persist Blade Agee DPM documented in this encounter Plan of Treatment Upcoming Encounters Date Type Department Care Team (Late st Contact Info) Description 12/12/2024 2:45 PM EST Office Visit Orthopedic Surgery - [place] [phone] [phone] Blade Agee DPM [address] [address] documented as of this encounter Visit Diagnoses Diagnosis Cellulitis of great toe, right- Primary Ingrowing nail Dermatophytosis of nail documented in this encounter Care Teams Shell Maker Lockstitch Relationship Specialty Start Date End Date Physician, Pcp Unknown PCP - General 11/08/24 documented as of this encounter
--- OUTSIDE RECORDS SUMMARY | 2024-11-29 07:56 | XMS_ITS | Encounter Summary ---
Author Organization [employer] [facility] Address [address] [facility] [address] [facility] [address] [place] [address] Care Team Providers Care Tube Lancer Name Role Phone Trinidad Briceño DO Primary Care Provider [phone] Sola Isidro PharmD Unavailable [phone] Reason for Visit * Reason Comments Med Refill Encounter Details Date Type Department Care Team ([facility] st Contact Info) Description 11/07/2024 Refill [facility] [address] [place] [address] Trinidad Briceño DO [address] [place] [address] Other hyperlipidemia; Other constipation; Anemia, unspecified type; Essential hypertension Social History Tobacco Use Types Packs/Day Years [...] Description 12/11/2024 11:00 AM EST Office Visit [address] [address] Trinidad Briceño DO [address] [place] [address] 12/19/2024 1:00 PM EST Medication Management [address] [address] Sola Isidro PharmD [address] [place] [address] 01/10/2025 1:00 PM EDT Office Visit [address] [address] Alvaro Luo MD [address] [place] [address] documented as of this encounter Goals Goal [...] as of this encounter Visit Diagnoses Diagnosis Other hyperlipidemia Other constipation Anemia, unspecified type Essential hypertension Unspecified essential hypertension documented in this encounter Additional Health Concerns Assessment Noted Time PHQ-9 Depression Total Score: 6 06/11/20 24 9:03 AM EDT documented as of this encounter Care Teams Tube Lancer Relationship Specialty Start Date End Date Trinidad Briceño DO [address] [place] [address] PCP - General Family Medicine 02/05/14 Sola Isidro PharmD [address] [place] [address] Pharmacist Internal Medicine 08/11/23 Amber Storm Apparel ManagerDirector Private 01/25/24 documented as of this encounter
--- OUTSIDE RECORDS SUMMARY | 2024-11-29 07:56 | XMS_ITS | Encounter Summary ---
Author Organization [employer] [facility] Address [address] [facility] [address] [place] [address] Care Team Providers Care Flatware Maker Name Role Phone Trinidad Briceño DO Primary Care Provider DelVelasquez mir PharmD Unavailable Unavail able Sola Isidro PharmD Unavailable [phone] Encounter Details Date Type Department Care Team ([facility] st Contact Info) Description 04/12/2023 Telephone [facility] [address] [place] [address] Trinidad Briceño DO [address] [place] [address] Social History Tobacco Use Types Packs/Day Years Used Date Smoking Tobacco: Former Cigarettes Passive Smoke Exposure: Past Alcohol Use Standard Drinks/Week Comments Not Currently 0 (1 standard drink = 0.6 oz pur e alcohol) Depression Answer Date Recorded Patient Health Questionnaire-9 Score 0 11/18/2022 Depression Answer Date Recorded Patient Health Questionnaire-2 Score 0 11/18/2022 Sex and Gender Information Value Date Recorded Sex Assigned at Male 08/29/2022 10:26 AM EDT Legal Sex Male 10:26 AM EDT Gender Identity Choose not to disclose 10:26 AM EDT Sexual Orientation Straight 08/29/2022 10 :26 AM EDT COVID-19 Exposure Response Date Recorded In the last 10 days, have yo u been in contact with someone who was confirmed or suspected to have Coronavirus/COVID-19? No / Unsure 04/12/2023 2:15 PM EDT documented as of this encounter Miscellaneous Notes * Telephone Encounter - Julio Escalante MA - 04/14/2023 11:52 AM EDT T/C to pt to schedule PE no answer LVM to call clinic. documented in this encounter Plan of Treatment Upcoming Encounters Date Type Department Care Team (Late st Contact Info) Description 12/11/2024 11:00 AM EST Office Visit [address] [address] Trinidad Briceño DO [address] [place] [address] 12/19/2024 1:00 PM EST Medication Management [address] [address] Sola Isidro PharmD [address] [place] [address] 01/10/2025 1:00 PM EDT Office Visit [address] [address] Alvaro Luo MD [address] [place] [address] documented as of this encounter Goals Goal Patient Goal Type Associated Problems Recent Progress Patient-Stated? Author Hemoglobin A1c < 7 Result Component 7.9(10/17/2024 2:30 PM EST) No Velasquez York, PharmD documented as of this encounter Visit Diagnoses Not on filedocumented in this encounter Additional Health Concerns Assessment Noted Time PHQ-9 Depression Total Score: 0 11/18/19 23 12:28 PM EST documented as of this encounter Care Teams Flatware Maker Relationship Specialty Start Date End Date Trinidad Brcieño DO [address] [place] [address] PCP - General Family Medicine 02/05/14 Velasquez York, PharmD [address] [place] [address] Pharmacist Internal Medicine 12/28/22 08/10/23 Sola Isidro, KamillaD [address] [place] [address] PRESLEY Rocha [phone] Pharmacist Internal Medicine 08/11/23 Amber Storm Associate Property ManagerStem Frazer 01/25/24 documented as of this encounter
--- OUTSIDE RECORDS SUMMARY | 2024-11-29 07:56 | XMS_ITS | Clinical Summary ---
Author Organization [employer] Address [address] [place] [address] Care Team Providers Care Automobile Technician Name Role Phone NavarroTrinidad Primary Care Provider Sola Isidro PharmD Unavailable [phone] Allergies No known active allergies Medications * This document contains information received from the source organization and may not represent a complete record from that organization. Diclofenac Sodium 1 % gel Apply 2 g topically in the morning and at bedtime. 022 Active traZODone (Desyrel) 100 MG tablet Take 2 tablets by mouth at bed time. Active prazosin (Minipress) 1 MG capsule Take 2 capsules by mouth at bedtime. Active clonazePAM (KlonoPIN) 0.5 MG tablet Take 1 tablet by mouth if needed in the morning and at bedtime. Active allopurinol (Zyloprim) 100 MG tablet Take 0.5 tablets by mouth 1 (one) time each day. Active Continuous Blood Gluc [employer] (FreeStyle Delia 2 [place]) device Use to check blood sugar at least every 8 hours 1 each 023 Active TRUEplus Glucose On The Go 4 g chewable tabletIndications :Type 2 diabetes mellitus with stage 3 chronic kidney disease, with long-term current use of insulin, unspecified whether stage 3a or 3b CKD (CMS/HCC) CHEW 4 TABLETS BY MOUTH NEEDED FOR LOW BLOOD SUGAR (LESS THAN 70 MG/DL) 50 tablet 11 023 Active Multiple Vitamins-Minerals (PreserVision AREDS 2) capsule Take 1 capsule by mouth 2 times daily. 60 capsule 11 023 Active cholecalciferol 25 MCG tablet TAKE 1 TABLET BY MOUTH EVERY MORNING 90 tablet 3 024 Active omeprazole (PriLOSEC) [address] capsule TAKE 1 CAPSULE BY MOUTH TWICE DAILY IN THE MORNING AND IN THE EVENING BEFORE MEALS 180 capsule 3 024 Active glucose blood (FreeStyle Precision Jorge Luis Test) test strip Use to test blood sugar up to 3 times daily, as directed 100 each 11 024 Active gabapentin (Neurontin) 300 MG capsule TAKE 1 CAPSULE BY MOUTH THREE TIMES DAILY IN THE MORNING, EVENING, AND BEDTIME 90 capsule 5 024 Active ammonium lactate (Lac-Hydrin) 12 % lotion APLIQUE A OCAMPO ERIN UA DERECHA EVERY EVENING AND USE MEDIAS A LA HORA DE ACOSTARSE 024 Active polyvinyl alcohol (Liquifilm Tears) 1.4 % ophthalmic solution INSTILL 1 DROP IN THE RIGHT EYE 4 TIMES A DAY IN THE MORNING, AT NOON, IN THE EVENING, AND AT BEDTIME NEEDED FOR DRY EYES Active Jardiance 25 MGIndications:Typ e 2 diabetes mellitus with stage 3 chronic kidney disease, with long-term current use of insulin, unspecified whether stage 3a or 3b CKD (CMS/HCC) TAKE 1 TABLET BY MOUTH EVERY MORNING 30 tablet 11 024 Active naltrexone (Depade) 50 MG tabletIndications :Alcohol use disorder, severe, dependence (CMS/[facility]) Take 1 tablet (50 mg) by mouth Once per day. 90 tablet 3 024 2024 Active Continuous Glucose Sensor (FreeStyle Delia 2 Sensor) miscIndications:T ype 2 diabetes mellitus with stage 3 chronic kidney disease, with long-term current use of insulin, unspecified whether stage 3a or 3b CKD (CMS/HCC) TEST BLOOD SUGAR EVERY 8 HOURS 2 each 024 Active Alcohol Swabs (Alcohol Prep) 70 % padsIndications:T ype 2 diabetes mellitus with stage 3 chronic kidney disease, with long-term current use of insulin, unspecified whether stage 3a or 3b CKD (CMS/HCC) USE DIRECTED WITH INSULIN INJECTION 100 each 11 024 Active insulin pen needle (Pentips) 32G x 4 mm miscIndications:T ype 2 diabetes mellitus with stage 3 chronic kidney disease, with long-term current use of insulin, unspecified whether stage 3a or 3b CKD (CMS/HCC) USE ONCE DAILY 100 each 3 024 Active FreeStyle lancetsIndication s:Type 2 diabetes mellitus with stage 3 chronic kidney disease, with long-term current use of insulin, unspecified whether stage 3a or 3b CKD (CMS/HCC) 1 each by Other route 3 times daily. Test blood sugar 3 times daily 100 each 11 Active amLODIPine (Norvasc) 10 MG tabletIndications :Hypertension, unspecified type Take 1 tablet (10 mg) by mouth in the morning. 90 tablet 1 Active tamsulosin (Flomax) 0.4 MG 24 hr capsule TAKE 1 CAPSULE BY MOUTH EVERY EVENING (1/2 HOUR AFTER MEALS) 90 capsule 1 024 Active ziprasidone (Geodon) 60 MG capsule Take 60 mg by mouth with breakfast and with evening meal. Active Arnuity Ellipta 100 MCG/ACT inhaler INHALE 1 PUFF BY MOUTH EVERY DAY AT THE SAME TIME RINSE MOUTH AFTER USING 30 each 1 025 Active Aspirin Low Dose 81 MG EC tabletIndications :Other hyperlipidemia TAKE 1 TABLET BY MOUTH EVERY MORNING 90 tablet 3 025 Active atorvastatin (Lipitor) 80 MG tabletIndications :Other hyperlipidemia TAKE 1 TABLET BY MOUTH AT BEDTIME 90 tablet 025 Active docusate sodium (Colace) 100 MG capsuleIndication s:Other constipation TAKE 1 CAPSULE BY MOUTH TWICE DAILY IN THE MORNING AND IN THE EVENING 180 capsule Active FeroSul 325 (65 Fe) MG tabletIndications :Anemia, unspecified type TAKE 1 TABLET BY MOUTH EVERY MORNING WITH BREAKFAST 90 tablet 3 025 Active hydroCHLOROthiazi de (HYDRODiuril) 25 MG tabletIndications :Essential hypertension TAKE 1 TABLET BY MOUTH EVERY MORNING 90 tablet 025 Active metoprolol succinate XL (Toprol-XL) 200 MG 24 hr tabletIndications :Essential hypertension TAKE 1 TABLET BY MOUTH EVERY MORNING 90 tablet 025 Active Tirzepatide (Mounjaro) 7.5 MG/0.5ML solution auto-injectorIndi cations:Type 2 diabetes mellitus with stage 3 chronic kidney disease, with long-term current use of insulin, unspecified whether stage 3a or 3b CKD (CMS/HCC) Inject 7.5 mg under the skin 1 (one) time per week. 2 mL 11 025 Active insulin glargine (Lantus SoloStar) 100 UNIT/ML penIndications:Ty pe 2 diabetes mellitus with stage 3 chronic kidney disease, with long-term current use of insulin, unspecified whether stage 3a or 3b CKD (CMS/HCC) Inject 38 Units under the skin Once per day. 15 mL 5 025 Active albuterol (Ventolin HFA) 108 (90 Base) MCG/ACT inhaler INHALE 2 PUFFS BY MOUTH EVERY 4 TO 6 HOURS NEEDED FOR SHORTNESS OF BREATH 18 g 1 025 Active baclofen (Lioresal) 10 MG tablet Take 1 tablet by mouth in the morning and 1 tablet at noon and 1 tablet in the evening. 022 2024 Discontinued(M ed list cleanup (will not trigger notification to Pharmacy)) acetaminophen (Tylenol 8 Hour) 650 MG ER tablet Take 1 tablet by mouth every 8 (eight) hours if needed for pain or fever. 022 2024 Discontinued(M ed list cleanup (will not trigger notification to Pharmacy)) Proventil HFA 108 (90 Base) MCG/ACT inhalerIndication s:Asthma, unspecified asthma severity, unspecified whether complicated, unspecified whether persistent INHALE 2 PUFFS BY MOUTH EVERY 4 TO 6 HOURS NEEDED SHORTNESS OF BREATH 6.7 g 023 2024 Discontinued(D uplicate order (will not trigger notification to Pharmacy)) dulaglutide (Trulicity) 0.75 MG/0.5ML solution pen-injectorIndic ations:Type 2 diabetes mellitus with stage 3 chronic kidney disease, with long-term current use of insulin, unspecified whether stage 3a or 3b CKD (CMS/HCC) Inject 0.75 mg under the skin 1 (one) time per week. 4 each 023 Discontinued cetirizine (ZyrTEC) 10 MG tabletIndications :Acute eruptive lichen planus Take 1 tablet (10 mg) by mouth in the morning. 30 tablet 11 023 2024 Discontinued(M ed list cleanup (will not trigger notification to Pharmacy)) betamethasone dipropionate 0.05 % creamIndications: Acute eruptive lichen planus APPLY TO THE AFFECTED AREA(S) TOPICALLY TWICE DAILY FOR FOURTEEN DAYS 45 g 1 023 2024 Discontinued(M ed list cleanup (will not trigger notification to Pharmacy)) celecoxib (CeleBREX) 200 MG capsule TAKE 1 CAPSULE BY MOUTH TWICE DAILY WITH FOOD AND A FULL GLASS OF WATER NEEDED FOR PAIN 023 2024 Discontinued(M ed list cleanup (will not trigger notification to Pharmacy)) clotrimazole (Lotrimin) 1 % cream APPLY TOPICALLY TO TOENAILS TWICE DAILY DIRECTED FOR 28 DAYS 30 g 5 024 2024 Discontinued(M ed list cleanup (will not trigger notification to Pharmacy)) hydroCHLOROthiazi de (HYDRODiuril) 25 MG tabletIndications :Essential hypertension TAKE 1 TABLET BY MOUTH EVERY MORNING 90 tablet 3 024 2024 Discontinued atorvastatin (Lipitor) 80 MG tabletIndications :Other hyperlipidemia TAKE 1 TABLET BY MOUTH AT BEDTIME 90 tablet 3 024 2024 Discontinued metoprolol succinate XL (Toprol-XL) 200 MG 24 hr tabletIndications :Essential hypertension TAKE 1 TABLET BY MOUTH EVERY MORNING 90 tablet 3 024 2024 Discontinued FeroSul 325 (65 Fe) MG tabletIndications :Anemia, unspecified type TAKE 1 TABLET BY MOUTH EVERY MORNING WITH BREAKFAST 90 tablet 3 024 2024 Discontinued Aspirin Adult Low Strength 81 MG EC tabletIndications :Other hyperlipidemia TAKE 1 TABLET BY MOUTH EVERY MORNING 90 tablet 3 024 2024 Discontinued docusate sodium (Colace) 100 MG capsuleIndication s:Other constipation TAKE 1 CAPSULE BY MOUTH TWICE DAILY IN THE MORNING AND IN THE EVENING 180 capsule 3 024 2024 Discontinued dextran 70-hypromellose (artificial tears) 0.1-0.3 % ophthalmic solution Administer 1 drop into the right eye if needed in the morning, at noon, in the evening, and at bedtime for dry eyes. 15 mL 11 07/182024 Discontinued(M ed list cleanup (will not trigger notification to Pharmacy)) lidocaine (Lidoderm) 5 % patch APPLY 1 PATCH TOPICALLY TO SKIN, LEAVE ON FOR 12 HOURS AND OFF FOR 12 HOURS DIRECTED 30 patch 2024 Discontinued(M ed list cleanup (will not trigger notification to Pharmacy)) albuterol (Ventolin HFA) 108 (90 Base) MCG/ACT inhaler INHALE 2 PUFFS BY MOUTH EVERY 4 TO 6 HOURS NEEDED FOR SHORTNESS OF BREATH 18 g 1 2024 Discontinued fluticasone furoate (Arnuity Ellipta) 100 MCG/ACT inhaler INHALE 1 PUFF BY MOUTH EVERY DAY AT THE SAME TIME RINSE MOUTH AFTER USING 30 each 1 2024 Discontinued sertraline (Zoloft) 50 MG tablet Take 50 mg by mouth in the morning. 2024 Discontinued(T herapy completed) Tirzepatide (Mounjaro) 5 MG/0.5ML solution auto-injectorIndi cations:Type 2 diabetes mellitus with stage 3 chronic kidney disease, with long-term current use of insulin, unspecified whether stage 3a or 3b CKD (CMS/HCC) Inject 5 mg under the skin 1 (one) time per week. 2 mL 11 2024 Discontinued(D ose adjustment) insulin glargine (Lantus SoloStar) 100 UNIT/ML penIndications:Ty pe 2 diabetes mellitus with stage 3 chronic kidney disease, with long-term current use of insulin, unspecified whether stage 3a or 3b CKD (CMS/HCC) Inject 35 Units under the skin Once per day. 2024 Discontinued(R eorder (will not trigger notification to Pharmacy)) Active Problems Problem Noted Date Diagnosed Date History of tobacco use 02/01/2024 Rectal bleeding 01/04/2024 Assessment & Plan (01/04/2024 1:44 PM EST): Most likely internal hemorrhoids Continue colace BID for constipation, add bisacodyl tabs PRN constipation more than 1 day Use preparation H rectal ointment Order labs and fu w PCP in 1 month BMI 26.0-26.9,adult 05/01/2023 Early dry stage nonexudative age-related macular degeneration of both eyes 03/02/2023 Chorioretinal scar, right eye 03/02/2023 History of syphilis s/p treatment 11/18/2022 Fatty liver 11/18/2022 Gallbladder polyp 11/18/2022 Chronic low back pain 11/18/2022 Hyperlipidemia 12/15/2016 Chronic kidney disease 02/22/2016 Erectile dysfunction 02/22/2016 Type 2 diabetes mellitus 02/22/2016 Obstructive sleep apnea 11/17/2015 Anxiety disorder 08/27/2015 Benign prostatic hyperplasia 08/27/2015 Alcohol use disorder 08/27/2015 History of substance abuse 08/27/2015 Essential hypertension 08/27/2015 Mood disorder 08/27/2015 Major depression, recurrent, chronic 08/27/2015 Chronic gastroesophageal reflux disease 08/27/20 15 Resolved Problems Problem Noted Date Diagnosed Date Resolved Date Plantar fasciitis of left foot 01/04/2024 02/01/2024 Assessment & Plan (01/04/2024 1:44 PM EST): Pt to wear a plantar arch support, will prescribe diabetic shoes with inserts Will refer to podiatry, 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 Wear DM shoes. Refer to podiatry History of sexually transmitted disease 09/19/2022 11/18/2022 Overview (09/19/2022): Syphillis Stage 3a chronic kidney disease 04/25/2022 06/11/2024 Encounters Date Type Department Care Team Description 11/28/2024 9:45 AM EST Office Visit [facility] [address] [place] [address] Amanda Adame MD Chronic bilateral low back pain without sciatica (Primary Dx) 11/28/2024 Travel 11/26/2024 9:30 AM EST Office Visit [facility] [address] [place] [address] Amanda Adame MD Chronic bilateral low back pain without sciatica (Primary Dx) 11/26/2024 Travel 11/25/2024 9:30 AM EST Office Visit [facility] [address] [place] [address] Amanda Adame MD Chronic bilateral low back pain without sciatica (Primary Dx) 11/17/2024 Refill [facility] [address] [place] [address] Trinidad Briceño DO 11/14/2024 9:30 AM EST Office Visit [facility] [address] [place] [address] Amanda Adame MD Chronic bilateral low back pain without sciatica (Primary Dx) 11/14/2024 Telephone [facility] [address] [place] [address] Trinidad Briceño DO telephone call 11/14/2024 Travel 11/12/2024 1:00 PM EST Office Visit [facility] [address] [place] [address] Pradip, Shyanne, OD Diabetes type 2, no ocular involvement (CMS/HCC) (Primary Dx); Early dry stage nonexudative age-related macular degeneration of both eyes; Dry eyes, bilateral; Age-related nuclear cataract of both eyes; Chorioretinal scar, right eye; Presbyopia 11/12/2024 Travel 11/07/2024 Refill [facility] [address] [place] [address] Trinidad Briceño DO Other hyperlipidemia; Other constipation; Anemia, unspecified type; Essential hypertension 11/03/2024 Refill [facility] [address], [place] [phone] Trinidad Briceño DO 11/01/2024 Orders Only [facility] [address] [place] [address] Tonie Zaragoza MD Onychomycosis of multiple toenails with type 2 diabetes mellitus (CMS/HCC) (CMS/HCC) (Primary Dx) 10/28/2024 Telephone [facility] [place] [address] Trinidad Briceño DO Referral 10/18/2024 1:15 PM EST Office Visit [facility] [place] [address] Alvaro Luo MD Alcohol use disorder, severe, dependence (CMS/HCC) (Primary Dx) 10/18/2024 Patient Outreach [facility] [place] [address] Lencho Wihte Recovery Supports 10/18/2024 Travel 10/17/2024 Telephone [facility] [place] [address] Sola Isidro PharmD Prior Authorization ([place]) 10/11/2024 Telephone [facility] [place] [address] Belia aRmirez, TAJ CP Care Management Meeting (Request for Walker with seat and Cane) 09/19/2024 Refill [facility] [place] [address] Trinidad Briceño DO Hypertension, unspecified type 09/19/2024 Refill [facility] [place] [address] Trinidad Briceño DO Hypertension, unspecified type 09/10/2024 9:15 AM EST Office Visit [facility] [place] [address] Amanda Adame MD Chronic bilateral low back pain without sciatica (Primary Dx) 09/10/2024 Travel 09/09/2024 9:15 AM EST Office Visit [facility] [place] [address] Amanda Adame MD Chronic bilateral low back pain without sciatica (Primary Dx) 09/09/2024 Travel 09/08/2024 Orders Only [facility] [place] [address] Trinidad Briceño DO Type 2 diabetes mellitus with stage 3 chronic kidney disease, with long-term current use of insulin, unspecified whether stage 3a or 3b CKD (CMS/HCC) (Primary Dx) 09/08/2024 Refill [facility] [address] [place] [address] Trinidad Briceño, DO 09/05/2024 Refill [facility] [address] [place] [address] Trinidad Briceño, DO 09/04/2024 Telephone [facility] [address] [place] [address] Trinidad Briceño, DO 09/02/2024 9:15 AM EST Office Visit [facility] [address] [place] [address] Amanda Adame MD Chronic bilateral low back pain without sciatica (Primary Dx) 09/02/2024 Travel 08/29/2024 9:15 AM EDT Office Visit [facility] [address] [place] [address] Amanda Adame MD Chronic bilateral low back pain without sciatica (Primary Dx) 08/29/2024 Travel from Last 3 Months Immunizations Name Administration Dates Next Due Hep B, adult 08/31/2018, 7,04/17/2017,12/15 Influenza injectable quadriv alent IIV4 with preservative 08/31/2018,07/25/2017,12/15/2016,07/23 Influenza injectable quadriv alent preservative free 09/04/2023,08/05/2022,09/16/2021,08/19 Influenza, IIV3, injectable 07/31/2014 Influenza, seasonal, injecta ble, preservative free 07/18/2024 Pfizer Covid-19 Vaccine 12+ 07/18/2024,1 11/04/2022,09/08/2021,03/16,02/23/2021 Pfizer Covid-19 Vaccine 12+ Bivalent 08/05/2022 Pfizer Covid-19 Vaccine 12+ emelia-sucrose (Hankins Cap) 03/24/2022 Pneumococcal Conjugate PCV 20 05/01/2023 Pneumococcal Polysaccharide PPSV23 07/23/2015 RSV Bivalent 11/08/2023 Tdap 07/23/2015 Zoster, Recombinant 08/26/2022,03/24/2022 Family History Medical History Relation Name Comments Drug abuse Brother Mental illness Brother Alzheimer's disease Father Coronary artery disease Maternal Grandfather Stroke Maternal Grandfather Blindness Maternal Grandmother Coronary artery disease Maternal Grandmother Hypertension Maternal Grandmother Kidney disease Maternal Grandmother Coronary artery disease Mother Diabetes Mother Hypertension Mother Asthma Son Depression Son Relation Name Status Comments Brother Father Maternal Grandfather Maternal Grandmother Mother Son Social History Tobacco Use Types Packs/Day Years Used Date Smoking Tobacco: Some Days Cigarettes Passive Smoke Exposure: Past Tobacco Cessation:Ready to Q uit: Not Asked; Counseling Given: Not Answered Alcohol Use Standard Drinks/Week Comments Not Currently [...] Orientation Straight 08/29/2022 10 :26 AM EDT Last Filed Vital Signs Vital Sign Reading Time Taken Comments Blood Pressure 112/68 10/18/2024 1:19 PM EST Pulse 57 10/18/2024 1:19 PM EST Temperature 36.5 ??C (97.7 ??F) 10/18/2024 1:19 PM ES T Respiratory Rate 16 10/18/2024 1:19 PM EST Oxygen Saturation 99% 06/11/2024 9:01 AM EDT Inhaled Oxygen Concentration - - Weight 74.9 kg (165 lb 0.4 oz) 10/18/2024 1:19 P M EST Height 170.2 cm (5' 7 ) 06/11/2024 9:01 AM EDT Body Mass Index 25.85 06/11/2024 9:01 AM EDT Plan of Treatment Upcoming Encounters Date Type Department Care Team (Late st Contact Info) Description 12/11/2024 11:00 AM EST Office Visit [address] [address] Trinidad Briceño DO [address] [place] [phone] 12/19/2024 1:00 PM EST Medication Management [address] [address] Sola Isidro, PharmD [address] [place] [phone] 01/10/2025 1:00 PM EDT Office Visit [address] [address] Alvaro Luo MD [address] [place] [phone] Health Maintenance Due Date Last Done Comments CT Colonography 1961 FIT DNA/Cologuard 1961 FIT 1961 FOBT 1961 Sigmoidoscopy 1961 Hepatitis A Vaccines (1 of 2 - Risk 2-dose series) 1980 Alcohol/Substance Use Screening 01/03/2025 01/04/2024 Diabetes: Foot Exam 01/03/2025 01/04/2024, 01/04/2024, 01/04/2024, Additional history exists Diabetes: Hemoglobin A1C 01/15/2025 024, 06/11/2024, 04/18/2024, Additional history exists SDOH Screening 01/23/2025 01/24/2024 Lipid Panel 04/18/2025 04/18/2024, 03/30, 03/25/2022, Additional history exists Colonoscopy 05/26/2025 05/26/2015 Colorectal Cancer Screening 05/26/2025 Depression Screening 06/11/2025 06/11/2024, 06/11/20 DTaP/Tdap/Td Vaccines (2 - Td or Tdap) 07/23/2025 07/23/2015 Tobacco Screening 10/18/2025 10/18/2024 Eye Exam 11/12/2026 11/12/2024, 10/30, 11/12/2024, Additional history exists Hepatitis B Vaccines Completed 08/31/2018, 07/25/2017, 04/17/2017, Additional history exists Zoster Vaccines Completed 08/26/2022, 03/24/2022 Pneumococcal Vaccine: 50+ Years Completed 05/01/2023, 07/23/2015 RSV Patients and Patients Aged 60 years or older Completed 11/08/2023 HIV Screening Completed 04/18/2024, 03/30, 09/16/2021 Hepatitis C Screening Completed 04/18/2024 , 04/13/2023, 09/16/2021 COVID-19 Vaccine Completed 07/18/2024, 03/2023, 08/05/2022, Additional history exists Influenza Vaccine Completed 07/18/2024, , 08/05/2022, Additional history exists HIB Vaccines Aged Out No longer eligi ble based on patient's age to complete this topic HPV Vaccines Aged Out No longer eligi ble based on patient's age to complete this topic IPV Vaccines Aged Out No longer eligi ble based on patient's age to complete this topic Meningococcal Vaccine Aged Out No aki teresita eligible based on patient's age to complete this topic RSV under 20 months Aged Out No longe r eligible based on patient's age to complete this topic Rotavirus Vaccines Aged Out No longer eligible based on patient's age to complete this topic Goals Goal Patient Goal Type Associated Problems Recent Progress Patient-Stated? Author Hemoglobin A1c < 7 Result Component 7.9( 2:30 PM EST) No Velasquez [place], Rowdy Record your blood sugar as directed Result Component No Sola Isidro PharmD Note: Use CGM, ensuring sensor is scanned at least once every 8 hours to capture 24H data. Check BG manually, as directed. Procedures Procedure Name Priority Date/Time Associated Diagnosis Comments POCT GLYCATED HEMOGLOBIN, TOTAL Routine 10/17/2024 2:30 PM EST Type 2 diabetes mellitus with stage 3 chronic kidney disease, with long-term current use of insulin, unspecified whether stage 3a or 3b CKD (CMS/HCC) HEPATITIS C AB W/REFL TO HCV RNA, QN, PCR Routine 04/18/2024 8:14 AM EDT Healthcare maintenance HIV 1/2 ANTIGEN/ANTIBODY, FOURTH GENERATION W/RFL Routine 04/18/2024 8:14 AM EDT Healthcare maintenance LIPID PANEL, STANDARD Routine 04/18/2024 8:14 AM EDT Type 2 diabetes mellitus with stage 3 chronic kidney disease, with long-term current use of insulin, unspecified whether stage 3a or 3b CKD (CMS/HCC) HM COLONOSCOPY Routine 05/26/2015 8:41 AM EDT from Last 3 Months or Most Recently Relevant to Health Maintenance Results * (ABNORMAL) POCT HGB A1C (10/17/2024 2:30 PM EST) Hemoglobin A1C 7.9(A) 4.0 - 6.0 % QC Media Lot # [id number] Blood 10/17/2024 2:30 PM EST Trinidad Briceño DO POINT OF CARE TEST ENTER/PAWEL T ORDERABLES Final Result * Hepatitis C Antibody with Reflex to HCV, RNA, Quantitative, Real-Time PCR (04/18/2024 8:14 AM EDT) Hepatitis C Antibody Nonreactive Nonreactive [facility] Comment:Antibodies to HCV no t detected; does not exclude early acuteHCV infection. Blood Venous blood specimen / Unknown 04/18/2024 8:14 AM EDT 04/18/2024 11:34 AM EDT Result [facility] Trinidad Briceño DO LAB BLOOD ORDERABLES Final R esult [facility] [address] [place] [phone] [phone] * HIV-1/2 Antigen and Antibodies, Fourth Generation, with Reflexes (04/18/2024 8:14 AM EDT) HIV AB/AG Nonreactive Nonreactive [facility] Comment:HIV-1 p24 Ag and/or HIV-1/HIV-2 Ab not detected.A test result that is nonreactive does not exclude thepossibility of exposure to or infection with HIV-1 and/orHIV-2. Nonreactive results in this assay for individualswith prior exposure to HIV-1 and/or HIV-2 may be due toantigen and antibody levels that are below the limit ofdetection of this assay.The [employer] HIV Ag/Ab Combo assay result andsupplemental assay results should be interpreted inconjunction with the patient's clinical presentation,history and other laboratory results. If the results areinconsistent with clinical evidence, additional testing issuggested to confirm the result. Blood Venous blood specimen / Unknown 04/18/2024 8:14 AM EDT 04/18/2024 11:34 AM EDT Trinidad Jurcsak DO LAB BLOOD ORDERABLES Final R esult Performing Organization Address [facility] Co de Phone Number [facility] [id number] [place] [address] [phone] * (ABNORMAL) Lipid Panel, Standard (04/18/2024 8:14 AM EDT) Triglycerides 264(H) <150 mg/dL [facility] Comment:Desirable Triglyceri de: less than 150 mg/dLBorderline High Triglyceride 150-199 mg/dLHigh Triglyceride: 200-499 mg/dLVery High Triglyceride: greater than or equal to 5OO mg/dL Cholesterol 166 <200 mg/dL [facility] Comment:Desirable Cholestero l: less than 200 mg/dLBorderline High Cholesterol: 200-239 mg/dLHigh Cholesterol: greater than 239 mg/dL LDL Cholesterol Calculated 62 <100 mg/dL [facility] Comment:Desirable LDL: less than 100 mg/dLNear Optimal/Above Optimal LDL: 110- 129 mg/dLBorderline High LDL: 130-159 mg/dLHigh LDL: 160-189 mg/dLVery High LDL: greater than or equal to 190 mg/dL HDL Cholesterol 52 >40 mg/dL [facility] Comment:Desirable HDL: great er than 40 mg/dL Note: This HDL assay may give artificially low results in patients with liver disease. Blood Venous blood specimen / Unknown 04/18/2024 8:14 AM EDT 04/18/2024 11:34 AM EDT Trinidad Briceño DO LAB BLOOD ORDERABLES Final R esult Performing Organization Address [facility]/ZIP Co de Phone Number [facility] [address] [place] [address] [phone] * Hm Colonoscopy (05/26/2015 8:41 AM EDT) Historical Provider HEALTH MAINTENANCE Final Result from Last 3 Months or Most Recently Relevant to Health Maintenance Insurance [facility] C3 Care Teams Automobile Technician Relationship Specialty Start Date End Date Trinidad Briceño DO [address] [place] [address] PCP - General Family Medicine 02/05/14 Sola Isidro PharmD [address] [place] [address] Pharmacist Internal Medicine 08/11/23 Amber Storm Material ListerAgency Trainer 01/25/24
--- OUTSIDE RECORDS SUMMARY | 2024-11-29 07:56 | XMS_ITS | Encounter Summary ---
Author Organization [employer] Address 75 [facility] 7t [place] [address] Care Team Providers Care Rivet Passer Name Role Phone Trinidad Briceño DO Primary Care Provider [phone] Sola Isidro PharmD Unavailable [phone] Reason for Visit * Reason Comments Med Refill Encounter Details Date Type Department Care Team ([facility] st Contact Info) Description 09/19/2024 Refill [facility] MEDICINE [address] [place] [address] Trinidad Briceño DO [address] [place] [address] Hypertension, unspecified type Social History Tobacco Use Types Packs/Day Years [...] the past 12 months, has t he [employer], gas, oil or water company threatened to [...] Description 12/11/2024 11:00 AM EST Office Visit [address] [address] Trinidad Briceño DO [address] [place] [address] 12/19/2024 1:00 PM EST Medication Management [address] [address] Sola Isidro, PharmD [address] [place] [address] 01/10/2025 1:00 PM EDT Office Visit [address] [phone] Alvaro Luo MD [address] [place] [address] documented as of this encounter Goals Goal Patient Goal Type Associated Problems Recent Progress Patient-Stated? Author Hemoglobin A1c < 7 Result Component 7.9(12/19/202 4 2:30 PM EST) No Velasquez York PharmD Record your blood sugar as directed Result Component No Sola Isidro PharmD Note: Use CGM, ensuring sensor is scanned at least once every 8 hours to capture 24H data. Check BG manually, as directed. documented as of this encounter Visit Diagnoses Diagnosis Hypertension, unspecified type documented in this encounter Additional Health Concerns Assessment Noted Time PHQ-9 Depression Total Score: 6 06/11/20 24 9:03 AM EDT documented as of this encounter Care Teams Rivet Passer Relationship Specialty Start Date End Date Trinidad Briceño DO [address] [place] [address] PCP - General Family Medicine 02/05/14 Sola Isidro PharmD [address] [place] [address] Pharmacist Internal Medicine 08/11/23 Amber Storm Leak HunterImmigration Paralegal 01/25/24 documented as of this encounter
--- OUTSIDE RECORDS SUMMARY | 2024-11-29 07:56 | XMS_ITS | Encounter Summary ---
Author Organization [employer] Address 75 [facility] 7t [place] [address] Care Team Providers Care Insurance Underwriter Name Role Phone NavarroTrinidad Primary Care Provider Sola Isidro PharmD Unavailable [phone] Reason for Visit * Reason Comments Acupuncture Encounter Details Date Type Department Care Team ([facility] st Contact Info) Description 11/25/2024 9:30 AM EST Office Visit [facility] MEDICINE [address] [place] [address] Amanda Adame MD [address] [place] [address] Chronic bilateral low back pain without sciatica [...] the past 12 months, has t he [employer], gas, oil or water [employer] threatened to shut off services in your [...] Progress Notes * Amanda Adame MD - 11/25/2024 9:30 AM EST Subjective Patient ID: Pablito Marie is a 64 y.o. adult who presents for Acupuncture. Pablito is here for acupuncture treatment #10 for chronic back pain and anxiety. He [...] Upcoming Encounters Date Type Department Care Team ([facility] Contact Info) Description 12/11/2024 11:00 AM EST Office Visit [address] [address] Trinidad Briceño DO [address] [place] [address] 12/19/2024 1:00 PM EST Medication Management [address] [address] Sola Isidro PharmD [address] [place] [address] 01/10/2025 1:00 PM EDT Office Visit [address] [phone] Alvaro Luo MD [address] [place] [address] documented as of this encounter Goals Goal [...] documented as of this encounter Care Teams Insurance Underwriter Relationship Specialty Start Date End Date Trinidad Briceño DO [address] [place] [address] PCP - General Family Medicine 02/05/14 Sola Isidro PharmD [address] [place] [address] Pharmacist Internal Medicine 08/11/23 Amber Storm Poultry DebeakerEnforcement Safety Officer 01/25/24 documented as of this encounter
--- OUTSIDE RECORDS SUMMARY | 2024-11-29 07:56 | XMS_ITS | Encounter Summary ---
Author Organization [employer] [facility] Address 75 [facility] 7t [place] [address] Care Team Providers Care Grind Operator Name Role Phone Trinidad Briceño DO Primary Care Provider Sola Isidro PharmD Unavailable [phone] Reason for Visit * Reason Onset Date Comments Referral 10/28/2024 Encounter Details Date Type Department Care Team ([facility] st Contact Info) Description 10/28/2024 Telephone [facility] MEDICINE [address] [place] [address] Trinidad Briceño DO [address] [place] [address] Referral Social History Tobacco Use Types Packs/Day Years [...] AM EDT documented as of this encounter Miscellaneous Notes * Telephone Encounter - Keira Adam RN - 11/01/2024 9:32 AM EST TC placed to Trinidad [phone] to inform of podiatry referral being placed for patient however Trinidad did not answer and phone just continues to ring with no VM option. Trinidad to f/u PRN. * Telephone Encounter - Pallavi Cervantes - 10/28/2024 11:14 AM EST TC from Trinidad with [facility] requesting new referral : DATE: TIME: Address: [address] [place] [address] Visits: Facility Name: [facility] Type of Specialist: Podiatry DX: Right nail on toe Provider : Provider NPI : Facility NPI: Phone # : [phone] Fax #: [phone] Last visit note If any questions contact Trinidad at [phone] documented in this encounter Plan of Treatment Upcoming Encounters Date Type Department Care Team (Late st Contact Info) Description 12/11/2024 11:00 AM EST Office Visit [address] [address] Trinidad Briceño DO [address] [place] [address] 12/19/2024 1:00 PM EST Medication Management [address] [address] Sola Isidro PharmD [address] [place] [address] 01/10/2025 1:00 PM EDT Office Visit [address] [address] Alvaro Luo MD [address] [place] [address] documented as of this encounter Goals Goal [...] documented as of this encounter Care Teams Grind Operator Relationship Specialty Start Date End Date Trinidad Briceño DO [address] [place] [address] PCP - General Family Medicine 02/05/14 Sola Isidro PharmD [address] [place] [address] Pharmacist Internal Medicine 08/11/23 Amber Storm Caustic LoaderBlog Writer 01/25/24 documented as of this encounter
--- OUTSIDE RECORDS SUMMARY | 2024-11-29 07:56 | XMS_ITS | Clinical Summary ---
Author Organization [facility], Address [address] [place] [address] [place] [address] Phone Care Team Providers Care Smt Operator Name Role Phone Trinidad Briceño DO Primary Care Provider Unava ilable Allergies No known active allergies Medications acetaminophen (TYLENOL 8 HOUR) 650 MG 8 hr tablet Take 1 tablet by mouth 3 (three) times a day Active amLODIPine (Norvasc) 10 MG tablet Take 1 tablet by mouth 1 (one) time each day Active aspirin (Aspir-Low) 81 MG EC tablet Comments: Filled Date: Mar 21 2018 12:00AM Patient Notes: TAKE 1 TABLET EVERY MORNING Duration: 30 7 Active atorvastatin (Lipitor) 80 MG tablet Take 1 tablet by mouth at bed time Active baclofen (LIORESAL) 10 MG tablet Take 1 tablet by mouth 3 (three) times a day Active clonazePAM (KlonoPIN) 0.5 MG tablet Take by mouth Active docusate sodium (Colace) 100 MG capsule Take 1 capsule by mouth 2 (two) times a day Active gabapentin (NEURONTIN) 100 MG capsule Comments: Filled Date: Mar 21 2018 12:00AM Patient Notes: TAKE 1 CAPSULE THREE TIMES DAILY IN THE MORNING, EVENING, AND BEDTIME Duration: 30 8 Active glipiZIDE (GLUCOTROL) 5 MG tablet Take as directed Comments: Patient Notes: take 2-4 tablets before breakfast and 3-4 before dinner Active hydroCHLOROthia zide (HYDRODIURIL) 25 MG tablet Take 1 tablet by mouth 1 (one) time each day Active hydrOXYzine (ATARAX) 25 MG tablet Take 1 tablet by mouth 4 (four) times a day Active metoprolol succinate XL (Toprol XL) 200 MG 24 hr tablet Take 1 tablet by mouth 1 (one) time each day Active OLANZapine (ZyPREXA) 5 MG tablet Take 1 tablet by mouth 1 (one) time each day Active omeprazole (PriLOSEC) [address] capsule Take 1 capsule by mouth 1 (one) time each day Active pancrelipase, Myb-Uasp-Drew, (Creon) 21571-84579 units capsule Take 2 capsules by mouth 2 (two) times a day Active sildenafil (Viagra) 50 MG tablet Take 0.5 tablets by mouth Active SUMAtriptan (Imitrex) 50 MG tablet Take 1 tablet by mouth Active cholecalciferol (VITAMIN D-3) 25 MCG (1000 UT) tablet Take 1,000 Units by mouth 0 Active escitalopram (LEXAPRO) 20 MG tablet Take 20 mg by mouth 0 Active Ferrous Sulfate (Iron) 325 (65 Fe) MG tablet Take 1 tablet by mouth 0 Active traZODone (DESYREL) 100 MG tablet Take 200 mg by mouth at bed time 0 Active FLUoxetine (PROzac) 20 MG capsule Take 60 mg by mouth 1 (one) time each day Active Jardiance 10 MG tablet Take 1 tablet by mouth 2 Active prazosin (MINIPRESS) 1 MG capsule Take 1 mg by mouth at bed time 2 Active Lantus SoloStar 100 UNIT/ML injection Inject 32 Units under the skin in the morning. 3 mL 2 Active allopurinol (ZYLOPRIM) 100 MG tablet Take 0.5 tablets (50 mg total) by mouth every morning 45 tablet 3 4 05/27/20 25 Active Active Problems Problem Noted Date Diagnosed Date Chronic kidney disease, stage 2 (mild) 2 Stage 3a chronic kidney disease 04/25/2022 Essential hypertension 03/09/2020 Renal disorder due to type 2 diabetes mellitus 0 03/06/2020 Type 2 diabetes mellitus Resolved Problems Problem Noted Date Diagnosed Date Resolved Date Stage 3b chronic kidney disease 03/22/2021 04/25/2022 Stage 3 chronic kidney disease 03/09/2020 11/21/2021 Overview (11/02/2020): Update for Diagnosis Load Microalbuminuria 03/06/2020 03/20/2021 Iron deficiency anemia 03/06/202003/20 Hyperuricemia 03/06/2020 03/06/2020 Gastroesophageal reflux disease 03/06/2020 03/06/2020 Social History Tobacco Use Types Packs/Day Years Used Date Smoking Tobacco: Former Tobacco Cessation:Counseling Given: Not Answered Comments:Smoking History Info:Unknown Sex and Gender Information Value Date Recorded Sex Assigned at Not on file Legal Sex Male 4:30 PM EST Gender Identity Not on file Sexual Orientation Not on file Last Filed Vital Signs Vital Sign Reading Time Taken Comments Blood Pressure 98/62 12/05/2023 1:07 PM EST Pulse - - Temperature - - Respiratory Rate - - Oxygen Saturation - - Inhaled Oxygen Concentration - - Weight 78.5 kg (173 lb) 12/05/2023 1:07 PM EST Height 172.7 cm (5' 8 ) 12/05/2023 1:07 PM EST Body Mass Index 26.3 12/05/2023 1:07 PM EST Plan of Treatment Upcoming Encounters Date Type Department Care Team (Late st Contact Info) Description 12/25/2024 3:45 PM EST Office Visit [facility] [address] [place] [address] Aron Christensen MD [address] [place] [address] [place] [phone] Health Maintenance Due Date Last Done Comments Colorectal Cancer Screening: Annual FOBT 2010 Colorectal Cancer Screening: Colonoscopy 2010 Colorectal Cancer Screening: Sigmoidoscopy 2010 Diabetes: Ophthalmology Exam 01/20/2020 Diabetes: Pedal Pulse Checked 01/20/2020 Diabetes: Sensory Foot Exam 01/20/2020 Diabetes: Visual Foot Exam 01/20/2020 Diabetes: Hemoglobin A1C 12/05/2023 023, 04/04/2023, 03/31/2023, Additional history exists Influenza Vaccine (#1) 2024 3, 08/05/2022, 09/16/2021, Additional history exists Hepatitis B Vaccine Aged Out 08/31/2018, 07/25/2017, 04/17/2017, Additional history exists No longer eligible based on patient's age to complete this topic Pneumococcal Vaccine: Pediatrics (0 to 5 Years) and At-Risk Patients (6 to 64 Years) Completed 05/01/2023, 07/23/2015, 06/30/2015 Procedures Procedure Name Priority Date/Time Associated Diagnosis Comments HEMOGLOBIN A1C Routine 04/04/2023 2:09 PM EDT Chronic kidney disease, stage 2 (mild) from Last 3 Months or Most Recently Relevant to Health Maintenance Results * (ABNORMAL) Hemoglobin A1c (04/04/2023 2:09 PM EDT) Hemoglobin A1C 7.3(H) (4.0-5.6) % [facility] Comment: MONITORING: In known diabetic patients, hemoglobin A1c targets should be discussed with health care provider. DIAGNOSTIC USE: ??The [place] Diabetes Association (ADA) and the World Health Organization (WHO) recommend the use of HbA1c to diagnose diabetes using a threshold of 6.5%. Patients who have an HbA1c between 5.7% and 6.4% are considered at increased risk for developing diabetes in the future. CAUTION: Falsely low HbA1c results may be observed in patients with hemolytic anemia, homozygous forms of abnormal hemoglobin (e.g. SS, CC, SC), , recent blood loss or hemoglobin F greater than 7%. Fructosamine may be used as an alternate test in these cases. REFERENCE: ADA: Standards of Medical Care in Diabetes 2020, The Journal of Clinical and Applied Research and Education Volume 43, Supplement 1 Testing performed or reported by [facility], a Service of [facility], [address] [place] [address] Morales Mohamud MD, School Psychologist [facility]# [id number] Blood (Blood, Venous) 04/04/2023 2:09 PM EDT 04/04/2023 2:12 PM EDT us Cezar CINTRON LAB BLOOD ORDERABLES Final Re sult [facility] from Last 3 Months or Most Recently Relevant to Health Maintenance Insurance [place]ICAID [place] Care Teams Smt Operator Relationship Specialty Start Date End Date Trinidad Briceño DO PCP - General 09/03/19
--- OUTSIDE RECORDS SUMMARY | 2024-11-29 07:56 | XMS_ITS | Encounter Summary ---
Author Organization [facility] Address 75 [facility] 7t [place] [address] Care Team Providers Care Poolroom/Poolhall Manager Name Role Phone Trinidad Briceño DO Primary Care Provider [phone] Sola Isidro PharmD Unavailable [phone] Reason for Visit * Reason Onset Date Comments Referral 02/26/2024 Encounter Details Date Type Department Care Team ([facility] st Contact Info) Description 02/26/[address] [facility] MEDICINE [address] [place] [address] Trinidad Briceño DO [address] [place] [address] Referral Social History Tobacco Use Types Packs/Day [...] the past 12 months, has t he [employer], gas, oil or water company threatened to [...] encounter Miscellaneous Notes * Telephone Encounter - Parul Malave RN - 02/27/2024 10:25 AM EDT Per OV 02/01/24: He saw podiatry and had his nails cut and they ordered orthopedic shoes for him He says that the nail is still growing the same way and is diggning into his skin and he can only wear one pair of shoes Please place podiatry referral if indicated, thanks!! * Telephone Encounter - Dimple Thrasher - 02/26/2024 11:21 AM EDT Tc from Trinidad Gacria requesting status on podiatry referral, states pt discussed with PCP during last visit. Please contact at [phone] documented in this encounter Plan of Treatment Upcoming Encounters Date Type Department Care Team (Late st Contact Info) Description 12/11/2024 11:00 AM EST Office Visit [facility] MEDICINE [address] [place] [phone] Trinidad Briceño DO [address] [place] [address] 12/19/2024 1:00 PM EST Medication Management [facility] [address] [place] [address] Sola Isidro PharmD [address] [place] [address] 01/10/2025 1:00 PM EDT Office Visit [facility] MEDICINE [address] [place], [place] [phone] Alvaro Luo MD [address] [place] [address] documented as of this encounter Goals Goal Patient Goal Type Associated Problems Recent Progress Patient-Stated? Author Hemoglobin A1c < 7 Result Component 7.9( 2:30 PM EST) No Velasquez York PharmD [...] documented as of this encounter Care Teams Poolroom/Poolhall Manager Relationship Specialty Start Date End Date Trinidad Briceño DO [address] [place] [address] PCP - General Family Medicine 02/05/14 Sola Isidro PharmD [address] [place] [address] [phone] Pharmacist Internal Medicine 08/11/23 Amber Storm Upset OperatorTube Mounter 01/25/24 documented as of this encounter
--- OUTSIDE RECORDS SUMMARY | 2024-11-29 07:56 | XMS_ITS | Encounter Summary ---
Author Organization [employer] Address 75 [facility] 7t [place] [address] Care Team Providers Care Marine Pilot Name Role Phone NavarroLuz ElenaTrinidad Primary Care Provider Sola Isidro PharmD Unavailable [phone] Encounter Details Date Type Department Care Team (Latest Contact Info) Description 11/28/2024 Travel Social History Tobacco Use Types Packs/Day [...] Description 12/11/2024 11:00 AM EST Office Visit [address] [address] Trinidad Briceño DO [address] [place] [address] 12/19/2024 1:00 PM EST Medication Management [address] [address] Sola Isidro PharmD [address] [place] [address] 01/10/2025 1:00 PM EDT Office Visit [address] [address] Alvaro Luo MD [address] [place] [address] documented as of this encounter Goals Goal [...] documented as of this encounter Care Teams Marine Pilot Relationship Specialty Start Date End Date Trinidad Briceño DO [address] [place] [address] PCP - General Family Medicine 02/05/14 Sola Isidro PharmD [address] [place] [address] Pharmacist Internal Medicine 08/11/23 Amber Storm Doctor Podiatric MedicineEntry Writer 01/25/24 documented as of this encounter
--- OUTSIDE RECORDS SUMMARY | 2024-11-29 07:56 | XMS_ITS | Encounter Summary ---
Author Organization [employer] Address 75 [facility] 7t [place] [address] Care Team Providers Care Waiter Waitress Name Role Phone NavarroTrinidad Primary Care Provider [phone] Sola Isidro PharmD Unavailable [phone] Reason for Visit * Reason Comments Acupuncture Encounter Details Date Type Department Care Team ([facility] st Contact Info) Description 11/14/2024 9:30 AM EST Office Visit [facility] MEDICINE [address] [place] [address] Amanda Adame MD [address] [place] [address] Chronic bilateral low back pain without sciatica [...] the past 12 months, has t he [employer], gas, oil or water [employer] threatened to shut off services in your [...] Progress Notes * Amanda Adame MD - 11/14/2024 9:30 AM EST Subjective Patient ID: Pablito Marie is a 64 y.o. adult who presents for Acupuncture. Pablito is here for acupuncture treatment #9 for chronic back pain and anxiety. He [...] 12/11/2024 11:00 AM EST Office Visit [address] [address] Trinidad Briceño DO [address] [place] [address] 12/19/2024 1:00 PM EST Medication Management [address] [address] Sola Isidro PharmD [address] [place] [address] 01/10/2025 1:00 PM EDT Office Visit [address] [phone] Alvaro Luo MD [address] [place] [address] documented as of this encounter Goals Goal [...] documented as of this encounter Care Teams Waiter Waitress Relationship Specialty Start Date End Date Trinidad Briceño DO [address] [place] [address] PCP - General Family Medicine 02/05/14 Sola Isidro PharmD [address] [place] [address] Pharmacist Internal Medicine 08/11/23 Amber Storm Manager EnvironmentalBarber 01/25/24 documented as of this encounter
--- OUTSIDE RECORDS SUMMARY | 2024-11-29 07:56 | XMS_ITS | Encounter Summary ---
Author Organization [facility] Address [address] [place] [address] Phone Care Team Providers Care Front Elevator Operator Name Role Phone Trinidad Briceño DO Primary Care Provider Unava ilable Encounter Details Date Type Department Care Team (Late Contact Info) Description 07/08/2024 Orders Only [facility] [address] [place] [place] [address] Cezar Dior PA [address] [place] [address] [place] [address] Chronic kidney disease, stage 2 (mild); Essential hypertension; Type 2 diabetes mellitus, not otherwise specified (HCC) Social History Tobacco Use Types Packs/Day Years Used Date Smoking Tobacco: Former Comments:Smoking History Inf o:Unknown Sex and Gender Information Value Date Recorded Sex Assigned at Not on file Legal Sex Male 4:30 PM EST Gender Identity Not on file Sexual Orientation Not on file documented as of this encounter Plan of Treatment Upcoming Encounters Date Type Department Care Team (Late Contact Info) Description 12/25/2024 3:45 PM EST Office Visit [facility] [address] [place] [place] [address] Aron Christensen MD [address] [place] [address] [place] [address] documented as of this encounter Visit Diagnoses Diagnosis Chronic kidney disease, stage 2 (mild) Essential hypertension Type 2 diabetes mellitus, not otherwise specified (HCC) documented in this encounter Care Teams Front Elevator Operator Relationship Specialty Start Date End Date Trinidad Briceño DO PCP - General 09/03/19 documented as of this encounter
--- OUTSIDE RECORDS SUMMARY | 2024-11-29 07:56 | XMS_ITS | Encounter Summary ---
Author Organization [facility] Address [address] [facility] 7t [place] [address] Care Team Providers Care Disability Representative Name Role Phone Yoon Briceñofer Primary Care Provider [phone] Sola Isidro PharmD Unavailable Reason for Referral * Consultation (Routine) - Authorized Specialty Diagnoses / Procedures Referred By Contac t Referred To Contact Podiatry Diagnoses Onychomycosis of multiple toenails with type 2 diabetes mellitus (CMS/HCC) ([facility]) Tonie Zaragoza MD [address] [place] [address] Phone: tel: fax: Blade Agee DPM [address] [facility] [address] [place] [address] Phone: tel: fax: Referral ID Status Reason Start Date Expiration Date Visits Requested Visits Authorized [id number] Authorized Specialty Services Required 11/01/2024 11/01/2025 6 6 Encounter Details Date Type Department Care Team (Late st Contact Info) Description 11/01/2024 Orders Only [facility] MEDICINE [address] [place] [address] Tonie Zaragoza MD [address] [place], [place] Onychomycosis of multiple toenails with type 2 diabetes mellitus (CMS/HCC) ([facility]) (Primary Dx) Social History Tobacco Use Types [...] is your housing situation today? I have daylinsierra cortes 08/18/[address] you [...] Description 12/11/2024 11:00 AM EST Office Visit [facility] MEDICINE [address] [place] [address] Trinidad Briceño DO [address] [place] [address] 12/19/2024 1:00 PM EST Medication Management [address] [address] Sola Isidro PharmD [address] [place] [address] 01/10/2025 1:00 PM EDT Office Visit [facility] MEDICINE [address] [place] [address] Alvaro Luo MD [address] [place] [address] Scheduled Referrals Name Type Priority Associated Diagnoses Orde r Schedule Referral to Podiatry Outpatient Referral Routine Onychomycosis of multiple toenails with type 2 diabetes mellitus ([facility]) ([facility]) Expected: 11/01/2024 (Approximate), Expires: 11/01/2025 documented as of this encounter Goals Goal [...] as of this encounter Visit Diagnoses Diagnosis Onychomycosis of multiple toenails with type 2 diabetes mellitus ([facility]/HCC) ([facility])- Primary documented in this encounter Additional Health Concerns Assessment Noted Time PHQ-9 Depression Total Score: 6 06/11/20 24 9:03 AM EDT documented as of this encounter Care Teams Disability Representative Relationship Specialty Start Date End Date Trinidad Briceño DO [address] [place] [address] PCP - General Family Medicine 02/05/14 Sola Isidro PharmD [address] [place] [address] Pharmacist Internal Medicine 08/11/23 Amber Storm Dredge Or [facility] 01/25/24 documented as of this encounter
--- OUTSIDE RECORDS SUMMARY | 2024-11-29 07:56 | XMS_ITS | Encounter Summary ---
Author Organization [facility] Address [address] [place] [address] Phone Care Team Providers Care Hearing Aide Technician Name Role Phone Trinidad Briceño DO Primary Care Provider Unava ilable Encounter Details Date Type Department Care Team (Late Contact Info) Description 11/18/2021 Documentation Only [facility] [place], [address] [place] [address] Reji Almeida MD [address] [facility] [place] [address] Social History Tobacco Use Types Packs/Day Years [...] Visit [facility] [address] [place] [address] Aron Christensen MD [address] [facility] [place] [address] documented as of this encounter Visit Diagnoses Not on filedocumented in this encounter Care Teams Hearing Aide Technician Relationship Specialty Start Date End Date Trinidad Briceño DO PCP - General 09/03/19 documented as of this encounter
--- OUTSIDE RECORDS SUMMARY | 2024-11-29 07:56 | XMS_ITS | Encounter Summary ---
Author Organization [employer] Address [address] [facility] [address] 7t [place] [address] Care Team Providers Care Third Loader Name Role Phone NavarroTrinidad Primary Care Provider Sola Isidro PharmD Unavailable [phone] Encounter Details Date Type Department Care Team ([facility] Contact Info) Description 08/24/2023 Telephone C OPTOMETRY [address] [place] [address] Shyanne Moseley, OD [address] [place] [address] Social History Tobacco Use Types Packs/Day Years Used Date Smoking Tobacco: Former Cigarettes Passive Smoke Exposure: Past Alcohol Use Standard Drinks/Week Comments Not Currently 0 (1 standard drink = 0.6 oz pur e alcohol) Depression Answer Date Recorded Patient Health Questionnaire-9 Score 0 11/18/2022 Housing Stability Answer Date Recorded What is your housing situation today? I have daylin cortes 08/18/[address] you li ve. Do you have problems with any of the following? None of the above 08/18/2023 Food Insecurity Answer Date Recorded Within the past 12 months, y ou worried that your food would run out before you got money to buy more: Sometimes True 2022 Within the past 12 months,th e food you bought just didn't last and you didn't have enough money to get more: Sometimes True 08/18/2023 Transportation Answer Date Recorded In the past [...] EDT Gender Identity Choose not to disclose 2 10:26 AM EDT Sexual Orientation Straight 08/29/2022 10 :26 AM EDT documented as of this encounter Plan of Treatment Upcoming Encounters Date Type Department Care Team (Late st Contact Info) Description 12/11/2024 11:00 AM EST Office Visit [address] [address] Trinidad Briceño DO [address] [place] [address] 12/19/2024 1:00 PM EST Medication Management [address] [address] Sola Isidro PharmD [address] [place] [address] 01/10/2025 1:00 PM EDT Office Visit [address] [address] Alvaro Luo MD [address] [place] [address] documented as of this encounter Goals Goal [...] documented as of this encounter Care Teams Third Loader Relationship Specialty Start Date End Date Trinidad Briceño DO [address] [place], [place] [phone] PCP - General Family Medicine 02/05/14 Sola Isidro PharmD [address] [place] [address] Pharmacist Internal Medicine 08/11/23 Amber Storm Production Service ManagerLoom Fixer Helper 01/25/24 documented as of this encounter
--- OUTSIDE RECORDS SUMMARY | 2024-11-29 07:56 | XMS_ITS | Encounter Summary ---
Author Organization [facility] Address [address] [place] [address] Phone Care Team Providers Care Pipe Organ Technician Name Role Phone Trinidad Briceño DO Primary Care Provider Unava ilable Encounter Details Date Type Department Care Team (Late Contact Info) Description 11/22/2023 Orders Only [facility] [address] [place] [address] Cezar Dior PA [address] [place] [address] [place] [address] Chronic kidney disease, stage 2 (mild); Type 2 diabetes mellitus, not otherwise specified (HCC); Essential hypertension Social History Tobacco Use Types [...] Visit [facility] [address] [place] [address] Aron Christensen MD [address] [place] [address] [place] [address] documented as of this encounter Visit Diagnoses Diagnosis Chronic kidney disease, stage 2 (mild) Type 2 diabetes mellitus, not otherwise specified (HCC) Essential hypertension documented in this encounter Care Teams Pipe Organ Technician Relationship Specialty Start Date End Date Trinidad Briceño DO PCP - General 09/03/19 documented as of this encounter
--- OUTSIDE RECORDS SUMMARY | 2024-11-29 07:56 | XMS_ITS | Encounter Summary ---
Author Organization [facility] [place], Address [address] [place] [address] Phone Care Team Providers Care Clipper Machine Name Role Phone Trinidad Briceño DO Primary Care Provider Unava ilable Encounter Details Date Type Department Care Team (Late st Contact Info) Description 12/04/2023 Documentation Only [facility] [address] [place] [address] Luz Elena Meng [address] [place] [address] Social History Tobacco Use Types Packs/Day Years [...] Visit [facility] [address] [place] [address] Aron Christensen MD [address] [place] [address] [place] [address] documented as of this encounter Visit Diagnoses Not on filedocumented in this encounter Care Teams Clipper Machine Relationship Specialty Start Date End Date Trinidad Briceño DO PCP - General 09/03/19 documented as of this encounter
--- OUTSIDE RECORDS SUMMARY | 2024-11-29 07:56 | XMS_ITS | Encounter Summary ---
Author Organization [employer] Address [address] [facility] 7t [place] [address] Care Team Providers Care Forest Nursery Worker Name Role Phone NavarroTrinidad Primary Care Provider Sola Isidro PharmD Unavailable [phone] Reason for Visit * Reason Comments Acupuncture Encounter Details Date Type Department Care Team ([facility] st Contact Info) Description 11/28/2024 9:45 AM EST [facility] [address] [place] [address] Amanda Adame MD [address] [place] [address] Chronic bilateral low back pain without sciatica [...] the past 12 months, has t he [employer], gas, oil or water company threatened to [...] Progress Notes * Amanda Adame MD - 11/28/2024 9:45 AM EST Subjective Patient ID: Pablito Marie [...] Description 12/11/2024 11:00 AM EST Office Visit [address] [address] Trinidad Briceño DO [address] [place] [address] 12/19/2024 1:00 PM EST Medication Management [address] [address] Sola Isidro PharmGiselle [address] [place] [address] 01/10/2025 1:00 PM EDT Office Visit [address] [phone] Alvaro Luo MD [address] [place] [address] documented as of this encounter Goals Goal [...] documented as of this encounter Care Teams Forest Nursery Worker Relationship Specialty Start Date End Date Trinidad Briceño DO [address] [place] [address] PCP - General Family Medicine 02/05/14 Sola Isidro PharmD [address] [place] [address] Pharmacist Internal Medicine 08/11/23 Amber Storm Sponge DiverLaboratory Inspector 01/25/24 documented as of this encounter
--- OUTSIDE RECORDS SUMMARY | 2024-11-29 07:56 | XMS_ITS | Clinical Summary ---
Author Organization [facility] Address [address] [place] [address] Phone Care Team Providers Care Analysis Engineer Name Role Phone Physician, Pcp Unknown Primary Care Provider Nhi vailable Allergies No known active allergies Medications Medication Sig Dispensed Refills Start Date End Date Status albuterol HFA (PROAIR HFA ; PROVENTIL HFA ; VENTOLIN HFA) 90 mcg/actuation inhaler Inhale into the lungs. - Inhalation Active allopurinoL (ZYLOPRIM) 100 mg tablet Take 1 Tablet by mouth daily. - Oral Active amLODIPine (NORVASC) 10 mg tablet Take 1 Tablet by mouth daily. - Oral Active ammonium lactate (LAC-HYDRIN) 12 % lotion Right great toenail At night wear socks to bed Active aspirin 81 mg chewable tablet Take 1 Tablet by mouth daily. - Oral Active atorvastatin (LIPITOR) 80 mg tablet Take 1 Tablet by mouth daily. - Oral Active baclofen (LIORESAL) 10 mg tablet Take 1 Tablet by mouth 3 times daily. - Oral Active celecoxib (CeleBREX) 200 mg capsule Take 1 Capsule by mouth 2 times daily. - Oral Active cetirizine (ZyrTEC) 10 mg tablet Take 10 mg by mouth. - Oral Active clonazePAM (KlonoPIN) 0.5 mg tablet Take 1 Tablet by mouth 2 times daily as needed. - Oral Active clotrimazole (LOTRIMIN) 1 % cream Apply topically 2 times daily. - Topical Active DICLOFENAC SODIUM ORAL Apply 4 g topically 2 times daily. - Apply externally Active DICLOFENAC SODIUM ORAL Apply topically. - Apply externally Active DULAGLUTIDE SUBQ Inject 0.75 mg into the skin once a week. - Subcutaneous Active empagliflozin (JARDIANCE) 25 mg tablet Take 25 mg by mouth every morning. - Oral Active escitalopram (LEXAPRO) 20 mg tablet Take 1 Tablet by mouth daily. - Oral Active ferrous sulfate 325 mg (65 mg elemental iron) tablet Take 1 Tablet by mouth daily. - Oral Active FLUTICASONE FUROATE NASL Inhale into the lungs. - Inhalation Active gabapentin (NEURONTIN) 300 mg capsule Take 1 Capsule by mouth 3 times daily. - Oral Active hydroCHLOROthiazide (HYDRODIURIL) 25 mg tablet Take 1 Tablet by mouth every morning. - Oral Active insulin glargine (LANTUS) 100 unit/mL injection Inject into the skin. - Subcutaneous Active lidocaine (LIDODERM) 5 % patch Remove & discard patch within 12 hours or as directed by MD. Place 1 Patch onto the skin every 24 hours. Apply for no more than 12 hours in any 24 hour period. - Transdermal Active METOPROLOL SUCCINATE ORAL Take 200 mg by mouth every morning. - Oral Active multivitamin (MULTIPLE VITAMINS ORAL) Take by mouth. - Oral Active naltrexone (DEPADE) 50 mg tablet Take 1 Tablet by mouth daily. - Oral Active OMEPRAZOLE ORAL Take 40 mg by mouth daily. - Oral Active prazosin (MINIPRESS) 1 mg capsule Take 1 Capsule by mouth at bedtime. - Oral Active tamsulosin (FLOMAX) 0.4 mg 24 hr capsule Capsules should be taken 30 minutes following the same meal each day. Take 1 Capsule by mouth daily. Take 30 mins after same meal every day. - Oral Active tramadol HCl (TRAMADOL ORAL) Take 50 mg by mouth every 8 hours as needed. - Oral Active traZODone (DESYREL) 100 mg tablet Take 1 Tablet by mouth at bedtime. - Oral Active cephalexin (KEFLEX) 500 mg capsule Take 1 capsule (500 mg total) by mouth 3 (three) times a day for 10 days. 30 each 11/28/2024 12/08/2024 Active silver sulfADIAZINE (Silvadene) 1 % cream Apply topically 1 (one) time each day. 50 g 11/28/2024 11/28/2025 Active Active Problems Problem Noted Date Diagnosed Date Alcohol use disorder 11/11/2024 Anxiety disorder 11/11/2024 BPH (benign prostatic hyperplasia) 11/11/2024 Chorioretinal scar, right eye 11/11/2024 Chronic GERD 11/11/2024 Chronic low back pain 11/11/2024 CKD (chronic kidney disease) 11/11/2024 Early stage nonexudative age -related macular degeneration of both eyes 11/11/2024 Encounters Date Type Department Care Team Description 11/28/2024 1:45 PM EST Office Visit [facility] [address] [phone] Blade Agee DPM Cellulitis of great toe, right (Primary Dx); Ingrowing nail; Dermatophytosis of nail from Last 3 Months Immunizations Name Administration Dates Next Due Moderna SARS-CoV-2 COVID-19, mRNA, LNP-S, preservative free 08/05/2022 Social History Tobacco Use Types Packs/Day Years Used Date Smoking Tobacco: Never Assessed Sex and Gender Information Value Date Recorded Sex Assigned at Not on file Gender Identity Not on file Sexual Orientation Not on file Job Start Date Occupation Industry Not on file Not on file Not on file Last Filed Vital Signs Vital Sign Reading Time Taken Comments Blood Pressure - - Pulse - - Temperature - - Respiratory Rate - - Oxygen Saturation - - Inhaled Oxygen Concentration - - Weight 72.6 kg (160 lb) 06/12/2024 9:54 AM EDT Height 170.2 cm (5' 7 ) 06/12/2024 9:54 AM EDT Body Mass Index 25.06 06/12/2024 9:54 AM EDT Plan of Treatment Upcoming Encounters Date Type Department Care Team (Late st Contact Info) Description 12/12/2024 2:45 PM EST Office Visit [facility] [address] [phone] Blade Agee DPM [address] [address] Health Maintenance Due Date Last Done Comments Diabetes: Annual GFR (Glomerular Filtration Rate) 1961 Diabetes: Annual Foot Exam 1971 Diabetes: Annual Retina Eye Exam 1971 Hepatitis A Vaccines (1 of 2 - Risk 2-dose series) 1980 Colorectal Cancer Screening: Colonoscopy 11/08/2024 Social Influencers of Health Screening 11/08/2024 Diabetes: Annual Urine Albumin-Creatinine Ratio (uACR) 11/28/2024 Hypertension/CHF/CAD Annual BMP Blood Test 11/28/2024 Diabetes: Blood Sugar Control Test (HGBA1C) 04/17/2025 10/17/2024, 04/04/2023 Depression Screening 06/11/2025 06/11/2024 DTaP,Tdap,and Td Vaccines (2 - Td or Tdap) 07/23/2025 07/23/2015 Cholesterol Screening (Lipid Panel) 04/18/2029 04/18/2024 Hepatitis B Vaccines Completed 08/31/2018, 07/25/2017, 04/17/2017, Additional history exists Zoster Vaccines Completed 08/26/2022, 03/24/2022 Pneumococcal Vaccine: Pediatrics (0 to 5 Years) and At-Risk Patients (6 to 64 Years) Completed 05/01/2023, 07/23/2015 RSV Immunization Patients 60+ Years Old Completed 11/08/2023 HIV Screening Completed 04/18/2024 Hepatitis C Screening Completed 04/18/2024 COVID-19 Vaccine Completed 07/18/2024, 03/2023, 08/05/2022, Additional [...] on patient's age to complete this topic MMR Vaccines Aged Out No longer eligi ble based on patient's age to complete this topic Meningococcal ACWY Vaccine Aged Out N o longer eligible based on patient's age to complete this topic RSV Immunization Patients Under 20 months Aged Out No longer eligible based on patient's age to complete this topic Varicella Vaccines Aged Out No longer eligible based on patient's age to complete this topic Care Teams Analysis Engineer Relationship Specialty Start Date End Date Physician, Pcp Unknown PCP - General 11/08/24
--- OUTSIDE RECORDS SUMMARY | 2024-11-29 07:56 | XMS_ITS | Encounter Summary ---
Author Organization [employer] Address [address] [facility] [address] 7t [place] [address] Care Team Providers Care Clinical Trial Leader Name Role Phone Trinidad Briceño DO Primary Care Provider [phone] Sola Isidro PharmD Unavailable [phone] Encounter Details Date Type Department Care Team ([facility] Contact Info) Description 02/06/2024 Orders Only [facility] MEDICINE [address] [place] [address] ProviderKathleen MD Social History Tobacco Use Types Packs/Day Years [...] Description 12/11/2024 11:00 AM EST Office Visit [address] [address] Trinidad Briceño DO [address] [place] [address] 12/19/2024 1:00 PM EST Medication Management [address] [address] Sola Isidro PharmD [address] [place] [address] 01/10/2025 1:00 PM EDT Office Visit [address] [address] Alvaro Luo MD [address] [place] [address] documented as of this encounter Goals Goal [...] as directed. documented as of this encounter Procedures Procedure Name Priority Date/Time Associated Diagnosis Comments COLONOSCOPY Routine 05/26/2015 8:41 AM EDT documented in this encounter Results * Hm Colonoscopy (05/26/2015 8:41 AM EDT) us Historical Provider HEALTH MAINTENANCE Final Result documented in this encounter Visit Diagnoses Not on filedocumented in this encounter Additional Health Concerns Assessment Noted Time PHQ-9 Depression Total Score: 0 11/18/19 23 12:28 PM EST documented as of this encounter Care Teams Clinical Trial Leader Relationship Specialty Start Date End Date Trinidad Briceño DO [address] [place], [place] [phone] PCP - General Family Medicine 02/05/14 Sola Isidro PharmD [address] [place] [address] Pharmacist Internal Medicine 08/11/23 Amber Storm [employer] Senior ManagerCarpentry Instructor 01/25/24 documented as of this encounter
--- OUTSIDE RECORDS SUMMARY | 2024-11-29 07:56 | XMS_ITS | Encounter Summary ---
Author Organization [employer] Address [address] [facility] 7t [place] [address] Care Team Providers Care Power System Engineer Name Role Phone Trinidad Briceño DO Primary Care Provider [phone] Sola Isidro PharmD Unavailable [phone] Reason for Visit * Reason Comments Med Refill Encounter Details Date Type Department Care Team (Late st Contact Info) Description 11/03/2024 Refill [facility] PEDS [address] [place], [place] [phone] Trinidad Briceño DO [address] [place] [address] Social History Tobacco Use Types Packs/Day Years [...] the past 12 months, has t he [employer], gas, oil or water company threatened to [...] Description 12/11/2024 11:00 AM EST Office Visit [address] [address] Trinidad Briceño DO [address] [place] [address] 12/19/2024 1:00 PM EST Medication Management [address] [address] Sola Isidro, PharmD [address] [place] [address] 01/10/2025 1:00 PM EDT Office Visit [address] [address] Alvaro Luo MD [address] [place] [address] documented as of this encounter Goals Goal [...] documented as of this encounter Care Teams Power System Engineer Relationship Specialty Start Date End Date Trinidad Briceño DO [address] [place], [place] [phone] PCP - General Family Medicine 02/05/14 Sola Isidro PharmD [address] [place] [address] Pharmacist Internal Medicine 08/11/23 Amber Storm [employer] Analytics ManagerAssembler Dc Field Yoke 01/25/24 documented as of this encounter
--- OUTSIDE RECORDS SUMMARY | 2024-11-29 07:56 | XMS_ITS | Encounter Summary ---
Author Organization [employer] Address [address] [facility] 7t [place] [address] Care Team Providers Care Boom Cat Operator Name Role Phone NavarroLuz ElenaTrinidad Primary Care Provider Sola Isidro PharmD Unavailable [phone] Encounter Details Date Type Department Care Team (Latest Contact Info) Description 11/12/2024 Travel Social History Tobacco Use Types Packs/Day [...] Description 12/11/2024 11:00 AM EST Office Visit [address] [address] Trinidad Briceño DO [address] [place] [address] 12/19/2024 1:00 PM EST Medication Management [address] [address] Sola Isidro PharmD [address] [place] [address] 01/10/2025 1:00 PM EDT Office Visit [address] [address] Alvaro Luo MD [address] [place] [address] documented as of this encounter Goals Goal [...] documented as of this encounter Care Teams Boom Cat Operator Relationship Specialty Start Date End Date Trinidad Briceño DO [address] [place] [address] PCP - General Family Medicine 02/05/14 Sola Isidro PharmD [address] [place] [address] Pharmacist Internal Medicine 08/11/23 Amber Storm Ax Survey WorkerIsotope Technician 01/25/24 documented as of this encounter
--- OUTSIDE RECORDS SUMMARY | 2024-11-29 07:56 | XMS_ITS | Encounter Summary ---
Author Organization [employer] Address [address] [facility] 7t [place] [address] Care Team Providers Care Crate Liner Name Role Phone Trinidad Briceño DO Primary Care Provider [phone] Sola Isidro PharmD Unavailable [phone] Reason for Visit * Reason Comments Med Refill Encounter Details Date Type Department Care Team ([facility] st Contact Info) Description 11/17/2024 Refill [facility] MEDICINE [address] [place] [address] Trinidad Briceño DO [address] [place] [address] Social History Tobacco Use Types Packs/Day Years [...] Description 12/11/2024 11:00 AM EST Office Visit [address] [address] Trinidad Briceño DO [address] [place] [address] 12/19/2024 1:00 PM EST Medication Management [address] [address] Sola Isidro, PharmD [address] [place] [address] 01/10/2025 1:00 PM EDT Office Visit [address] [address] Alvaro Luo MD [address] [place] [address] documented as of this encounter Goals Goal [...] documented as of this encounter Care Teams Crate Liner Relationship Specialty Start Date End Date Trinidad Briceño DO [address] [place], [place] [phone] PCP - General Family Medicine 02/05/14 Sola Isidro PharmD [address] [place] [address] Pharmacist Internal Medicine 08/11/23 Amber Storm [employer] WelderHarpsichord Maker 01/25/24 documented as of this encounter
--- OUTSIDE RECORDS SUMMARY | 2024-11-29 07:56 | XMS_ITS | Encounter Summary ---
Author Organization Resource Data [facility] Address [address] [facility] 7t [place] [address] Care Team Providers Care Wire Mesh Gate Assembler Name Role Phone Trinidad Briceño DO Primary Care Provider Sola Isidro PharmD Unavailable [phone] Reason for Visit * Reason Onset Date Comments telephone call 11/14/2024 Encounter Details Date Type Department Care Team ([facility] st Contact Info) Description 11/14/2024 Telephone [facility] MEDICINE 230 [place] [address] Trinidad Briceño DO 230 [place] [address] telephone call Social History Tobacco Use Types Packs/Day Years [...] the past 12 months, has t he [employer], gas, oil or water [employer] threatened to shut off services in your [...] Telephone Encounter - Keira Adam RN - 11/14/2024 4:12 PM EST RN discussed below message with PCP. Proventil has been discontinued as of 02/09/2023. Patient was switched to ventolin and is supposed to be using annuity daily. PCP called pharmacy and was informed patient is p/u medication every 2 months (not compliant with use). PCP advised patient should start using arnuity inhaler every day and the albuterol PRN and see if his s/s improve. TC placed to patient via [employer] interpreters (#[id number]) to inform of above message. Patient verbalized understanding and did not have any further questions/concerns. Patient to f/u PRN. * Telephone Encounter - Ellie Janice - 11/14/2024 1:53 PM EST Pt walked in requesting a change on his Asthma medication. He reports that the Albuterol which is the one that he currently has is not helping him when he feels short of breath. He also reported thathe used to take Proventil HFA about a year ago and this one helped him more than the current one. Indonesian speaking only. [phone] best contact number. documented in this encounter Plan of Treatment Upcoming Encounters Date Type Department Care Team ([facility] st Contact Info) Description 12/11/2024 11:00 AM EST Office Visit [address] [address] Trinidad Briceño DO [address] [place] [address] 12/19/2024 1:00 PM EST Medication Management [address] [address] Sola Isidro PharmD [address] [place] [address] 01/10/2025 1:00 PM EDT Office Visit [address] [address] Alvaro Luo MD [address] [place] [address] [phone] documented as of this encounter Goals Goal [...] documented as of this encounter Care Teams Wire Mesh Gate Assembler Relationship Specialty Start Date End Date Trinidad Briceño DO [address] [place] [address] PCP - General Family Medicine 02/05/14 Sola Isidro, Rowdy [address] [place] [address] Pharmacist Internal Medicine 08/11/23 Amber Storm TicketerHealth Care Marketing Specialist 01/25/24 documented as of this encounter
--- OUTSIDE RECORDS SUMMARY | 2024-11-29 07:56 | XMS_ITS | Encounter Summary ---
Author Organization [employer] Address [address] [facility] 7t [place] [address] Care Team Providers Care Qualitative Executive Researcher Name Role Phone NavarroLuz ElenaTrinidad Primary Care Provider [phone] Sola Isidro PharmD Unavailable [phone] Encounter Details Date Type Department Care Team (Latest Contact Info) Description 11/14/2024 Travel Social History Tobacco Use Types Packs/Day [...] Description 12/11/2024 11:00 AM EST Office Visit [address] [address] Trinidad Briceño DO [address] [place] [address] 12/19/2024 1:00 PM EST Medication Management [address] [address] Sola Isidro PharmD [address] [place] [address] 01/10/2025 1:00 PM EDT Office Visit [address] [address] Alvaro Luo MD [address] [place] [address] documented as of this encounter Goals Goal [...] documented as of this encounter Care Teams Qualitative Executive Researcher Relationship Specialty Start Date End Date Trinidad Briceño DO 230 [place] [address] PCP - General Family Medicine 02/05/14 Sola Isidro PharmD 230 [place] [address] Pharmacist Internal Medicine 08/11/23 Amber Storm Teacher SpecialistMarketing Sales Consultant 01/25/24 documented as of this encounter
--- OUTSIDE RECORDS SUMMARY | 2024-11-29 07:56 | XMS_ITS | Encounter Summary ---
Author Organization [employer] Address [address] [facility] 7t [place] [address] Care Team Providers Care Dining Room Host/Hostess Name Role Phone Yoon Briceñofer Primary Care Provider Sola Isidro PharmD Unavailable [phone] Reason for Visit * Reason Onset Date Comments [facility] Care Management Meeting 10/11/2024 Req uest for Walker with seat and Cane Encounter Details Date Type Department Care Team (Late st Contact Info) Description 10/11/2024 Telephone [facility] MEDICINE 230 [place] [address] Belia Ramirez RN 230 [place] [address] [facility] Care Management Meeting (Request for Walker with seat and Cane) Social History Tobacco Use Types Packs/Day Years [...] encounter Miscellaneous Notes * Telephone Encounter - Terri Shah RN - 11/14/2024 12:07 PM EST This publicity writer spoke to [facility], pt received roller walk with seat and brakes February. Request for centeno as pain for the diagnosis is not covered. Will up date [facility] ml. * Telephone Encounter - Belia Ramirez RN - 10/11/2024 1:28 PM EST [facility] Care Management meeting: Patient is requesting a walker with a seat and a cane. Rx for walker with a seat submitted to [facility] in December 2023. Message sent to DME Specialist to check on status of walker with seat Rx and to initiate Rx for cane. Dx of Chronic bilateral low back pain without sciatica. documented in this encounter Plan of Treatment Upcoming Encounters Date Type Department Care Team (Late st Contact Info) Description 12/11/2024 11:00 AM EST Office Visit [address] [address] Trinidad Briceño DO 230 [place] [address] 12/19/2024 1:00 PM EST Medication Management [address] [address] Sola Isidro PharmD [address] [place] [address] 01/10/2025 1:00 PM EDT Office Visit [address] [phone] Alvaro Luo MD [address] [place] [address] documented as of this encounter Goals Goal [...] documented as of this encounter Care Teams Dining Room Host/Hostess Relationship Specialty Start Date End Date Trinidad Briceño DO [address] [place] [address] PCP - General Family Medicine 02/05/14 Sola Isidro PharmD [address] [place] [address] Pharmacist Internal Medicine 08/11/23 Amber Storm Livestock CaretakerKohinoor Operator 01/25/24 documented as of this encounter
[2024-11-29 08:08] LABS: MANUAL DIFF FLAG NO
[2024-11-29 08:16] LABS: Basophils Percent Auto 0.4 % (0-2); Eosinophils Absolute Auto 0.1 X10*3/uL (0.0-0.4); Eosinophils Percent Auto 0.9 % (0-4); Hemoglobin 16.2 g/dl (14.0-18.0); Imm Gran Abs Auto 0.03 X10*3/uL (0.00-0.03); Imm Gran Pct Auto 0.4 % (0.0-0.4); Lymphocytes Absolute Auto 2.6 X10*3/uL (1.2-4.9); Lymphocytes Percent Auto 32.9 % (20-40); Mean Corpuscular HGB Conc 34.5 g/dl (31.0-36.0); Mean Corpuscular Hemoglobin 32.6 pg (27.0-33.0); Mean Corpuscular Volume 94.6 fL (80.0-98.0); Mean Platelet Volume 11.7 fL (9.4-12.4); Monocytes Absolute Auto 0.6 X10*3/uL (0.1-1.2); Monocytes Percent Auto 7.4 % (2-11); Neutrophils Absolute Auto 4.5 x10*3/uL (2.0-8.3); Platelet Count 117 X10*3/uL (160-400); Red Blood Count 4.97 X10*6/uL (4.60-5.80); Red Cell Distribution Width 12.6 % (11.0-16.0); White Blood Count 7.8 X10*3/uL (4.8-10.8)
[2024-11-29 08:23] LABS: Estimated Average Glucose 183 mg/dL; Hemoglobin A1C 270.2981 umol/L; Total Hemoglobin (HGBA1C) 4248.4318 umol/L
[2024-11-29 08:57] LABS: Alanine Aminotransferase 32 U/L (0-40); Albumin Level 4.4 g/dL (3.5-5.0); Alkaline Phosphatase 55 U/L (39-117); Anion Gap 13 (12-20); Aspartate Amino Transferase 33 U/L (5-37); Bilirubin Total 1.1 mg/dL (0.0-1.0); Blood Urea Nitrogen 17 mg/dL (9-16); Carbon Dioxide 31 mmol/L (22-29); Chloride 100 mmol/L (96-108); Cholesterol 165 mg/dL (<200); Estimated Glomerular Filt Rate 59; Glucose Random 165 mg/dL (60-115); HDL Cholesterol 49 mg/dL (>40); LDL Cholesterol Calculated 88 mg/dL (<100); Sodium 140 mmol/L (135-145); Total Protein 8.3 g/dL (6.5-8.0); Triglycerides 140 mg/dL (<150)
[2024-11-29 09:15] LABS: Free T4 (Free Thyroxine) 1.11 ng/dL (0.71-1.85); Thyroid Stimulating Hormone 1.32 uIU/mL (0.32-4.0)
== END 2024-11-29 07:53 | disposition home or self-care (01) ==
LOC: HO.LAB 07:52
PROVIDERS: PCP Family Medicine; Visit Provider Nurse Practitioner Family
DX: Z79.899 Other long term (current) drug therapy (principal)
CPT/HCPCS: 36415; 80053; 80061; 83036; 84439; 84443; 85025

== ENCOUNTER 2024-12-17 09:20 | Outpatient (REF) | payer MEDICAID, SELFPAY ==
--- NOTE | ~2024-12-17 | XR_ITS ---
EXAMINATION: XR CHEST CLINICAL INFORMATION: worsening SOB x several mos COMPARISON: April 27, 2021. TECHNIQUE: 2 views of the chest were obtained. FINDINGS: No hyperinflation. No consolidation, pleural effusion or pneumothorax. Cardiomediastinal silhouette size is normal. Multilevel thoracic spondylosis. XR/XR chest 2V IMPRESSION: No acute airspace disease. Electronically signed by: Bryan Martínez MD 12/17/2024 09:42 AM [facility]
--- OUTSIDE RECORDS SUMMARY | 2024-12-17 10:06 | XMS_ITS | Encounter Summary ---
Author Organization [employer] Address [address] [facility] 7t [place] [address] Care Team Providers Care Tree Specialist Name Role Phone Trinidad Briceño DO Primary Care Provider [phone] Sola Isidro PharmD Unavailable [phone] Reason for Visit * Reason Comments Med Refill Encounter Details Date Type Department Care Team ([facility] st Contact Info) Description 11/17/2024 Refill [facility] MEDICINE 230 [place] [address] Trinidad Briceño DO 230 [place] [address] Social History Tobacco Use Types Packs/Day Years [...] Care Team (Late st Contact Info) Description 12/19/2024 1:00 PM EST Medication Management [address] [address] Sola Isidro PharmD [address] [place] [address] 01/10/2025 1:00 PM EDT Office Visit [address] [address] Alvaro Luo MD [address] [place] [address] documented as of this encounter Goals Goal Patient Goal Type Associated Problems Recent Progress Patient-Stated? Author Hemoglobin A1c < 7 Result Component 8.6( 11:35 AM EST) No Velasquez York PharmD Record your [...] documented as of this encounter Care Teams Tree Specialist Relationship Specialty Start Date End Date Trinidad Briceño DO 230 [place] [address] PCP - General Family Medicine 02/05/14 Sola Isidro PharmD 230 [place] [address] Pharmacist Internal Medicine 08/11/23 Amber Storm Inspector PenetrantColor Worker 01/25/24 documented as of this encounter
--- OUTSIDE RECORDS SUMMARY | 2024-12-17 10:06 | XMS_ITS | Encounter Summary ---
Author Organization [employer] Address [address] [facility] 7t [place] [address] Care Team Providers Care Palliative Nurse Name Role Phone NavarroLuz ElenaTrinidad Primary Care Provider Sola Isidro PharmD Unavailable [phone] Encounter Details Date Type Department Care Team (Latest Contact Info) Description 12/17/2024 Travel Social History Tobacco Use Types Packs/Day [...] Recorded Patient Health Questionnaire-2 Score 4 06/11/2024 Internet Access Answer Date Recorded Internet Access Q1 Yes 12/11/2024 Internet Access Q2 Not on file 12/11/2024 Sex and Gender Information Value Date Recorded [...] Description 12/19/2024 1:00 PM EST Medication Management [facility] MEDICINE [address] [place] [address] Sola Isidro PharmD [address] [place] [address] 01/10/2025 1:00 PM EDT Office Visit [facility] MEDICINE [address] [place] [address] Alvaro Luo MD [address] [place] [address] documented as of this encounter Goals Goal [...] documented as of this encounter Care Teams Palliative Nurse Relationship Specialty Start Date End Date Trinidad Briceño DO 230 [place], [place] [phone] PCP - General Family Medicine 02/05/14 Sola Isidro PharmD 230 [place], [place] [phone] Pharmacist Internal Medicine 08/11/23 Amber Storm Deputy BailiffPaper Mill Supervisor 01/25/24 documented as of this encounter
--- OUTSIDE RECORDS SUMMARY | 2024-12-17 10:06 | XMS_ITS | Encounter Summary ---
Author Organization [employer] Address [address] [facility] 7t [place] [address] Care Team Providers Care Pinion Polisher Name Role Phone NavarroLuz ElenaTrinidad Primary Care Provider Sola Isidro PharmD Unavailable [phone] Encounter Details Date Type Department Care [...] Description 12/19/2024 1:00 PM EST Medication Management [facility] MEDICINE [address] [place] [address] Sola Isidro PharmD [address] [place] [address] 01/10/2025 1:00 PM EDT Office Visit [facility] MEDICINE [address] [place] [address] Alvaro Luo MD [address] [place] [address] documented as of this encounter Goals Goal Patient Goal Type Associated Problems Recent Progress Patient-Stated? Author Hemoglobin A1c < 7 Result Component 8.6( 11:35 AM EST) No Velasquez York PharmGiselle Record your blood sugar as directed Result [...] documented as of this encounter Care Teams Pinion Polisher Relationship Specialty Start Date End Date Trinidad Briceño DO [address] [place] [address], [place] [address] PCP - General Family Medicine 02/05/14 Sola Isidro PharmD 230 [place] [address] Pharmacist Internal Medicine 08/11/23 Amber Storm Armored Cable Machine OperatorDurability Engineer 01/25/24 documented as of this encounter
--- OUTSIDE RECORDS SUMMARY | 2024-12-17 10:06 | XMS_ITS | Encounter Summary ---
Author Organization [employer] Address [address] [facility] 7t [place] [address] Care Team Providers Care Marketing Support Assistant Name Role Phone NavarroLuz ElenaTrinidad Primary Care Provider Sola Isidro PharmD Unavailable [phone] Encounter Details Date Type Department Care Team (Latest Contact Info) Description 12/03/2024 Travel Social History Tobacco Use Types Packs/Day [...] Description 12/19/2024 1:00 PM EST Medication Management [facility] MEDICINE [address] [place] [address] Sola Isidro PharmD [address] [place] [address] 01/10/2025 1:00 PM EDT Office Visit [facility] MEDICINE [address] [place] [address] Alvaro Luo MD [address] [place] [address] documented as of this encounter Goals Goal [...] documented as of this encounter Care Teams Marketing Support Assistant Relationship Specialty Start Date End Date Trinidad Briceño DO [address] [place] [address], [place] [address] PCP - General Family Medicine 02/05/14 Sola Isidro PharmD 230 [place] [address] Pharmacist Internal Medicine 08/11/23 Amber Storm Viscera WasherSummer Counselor 01/25/24 documented as of this encounter
--- OUTSIDE RECORDS SUMMARY | 2024-12-17 10:06 | XMS_ITS | Encounter Summary ---
Author Organization [employer] Address [address] [facility] [address] 7t [place] [address] Care Team Providers Care Retail Advertising Executive Name Role Phone NavarroTrinidad Primary Care Provider Sola Isidro PharmD Unavailable [phone] Encounter Details Date Type Department Care Team ([facility] Contact Info) Description 08/24/2023 Telephone [facility] OPTOMETRY [address] [place] [address] Shyanne Moseley, OD 230 [place] [address] Social History Tobacco Use Types Packs/Day Years [...] Description 12/19/2024 1:00 PM EST Medication Management [facility] MEDICINE [address] [place] [address] Sola Isidro PharmD [address] [place] [address] 01/10/2025 1:00 PM EDT Office Visit [facility] MEDICINE [address] [place] [address] Alvaro Luo MD [address] [place] [address] documented as of this encounter Goals Goal Patient Goal Type Associated Problems Recent Progress Patient-Stated? Author Hemoglobin A1c < 7 Result Component 8.6( 5 11:35 AM EST) No Velasquez York PharmD [...] documented as of this encounter Care Teams Retail Advertising Executive Relationship Specialty Start Date End Date Trinidad Briceño DO [address] [place] [address] PCP - General Family Medicine 02/05/14 Sola Isidro, Rowdy [address] [place] [address] Pharmacist Internal Medicine 08/11/23 Amber Storm Sales Floor Team MemberPersonal Injury Litigation Paralegal 01/25/24 documented as of this encounter
--- OUTSIDE RECORDS SUMMARY | 2024-12-17 10:06 | XMS_ITS | Encounter Summary ---
Author Organization [facility], Address [address] [place] [address] Phone Care Team Providers Care Miller Supervisor Name Role Phone Trinidad Briceño DO Primary Care Provider Unava ilable Encounter Details Date Type Department Care Team (Late st Contact Info) Description 12/04/2023 Documentation Only [facility] [address] [place] [address] Luz Elena Meng [address] [place] [address] Social History Tobacco Use Types [...] Visit [facility] [address] [place] [address] Aron Christensen MD [address] [place] [address] [place] [address] documented as of this encounter Visit Diagnoses Not on filedocumented in this encounter Care Teams Miller Supervisor Relationship Specialty Start Date End Date Trinidad Briceño DO PCP - General 09/03/19 documented as of this encounter
--- OUTSIDE RECORDS SUMMARY | 2024-12-17 10:06 | XMS_ITS | Encounter Summary ---
Author Organization [employer] Address [address] [facility] 7t [place] [address] Care Team Providers Care Rubber Stamp Die Inspector Name Role Phone NavarroLuz ElenaTrinidad Primary Care Provider Sola Isidro PharmD Unavailable [phone] Encounter Details Date Type Department Care [...] Description 12/19/2024 1:00 PM EST Medication Management [facility] MEDICINE [address] [place] [address] Sola Isidro PharmD [address] [place] [address] 01/10/2025 1:00 PM EDT Office Visit [facility] MEDICINE [address] [place] [address] Alvaro Luo MD [address] [place] [address] documented as of this encounter Goals Goal [...] documented as of this encounter Care Teams Rubber Stamp Die Inspector Relationship Specialty Start Date End Date Trinidad Briceño DO [address] [place] [address], [place] [address] PCP - General Family Medicine 02/05/14 Sola Isidro PharmD 230 [place] [address] Pharmacist Internal Medicine 08/11/23 Amber Storm Compensation AssociateOperator Engineer 01/25/24 documented as of this encounter
--- OUTSIDE RECORDS SUMMARY | 2024-12-17 10:06 | XMS_ITS | Encounter Summary ---
Author Organization [employer] Address [address] [facility] 7t [place] [address] Care Team Providers Care Burring Machine Operator Name Role Phone NavarroTrinidad Primary Care Provider Sola Isidro PharmD Unavailable [phone] Reason for Visit * Reason Comments Acupuncture Encounter Details Date Type Department Care Team ([facility] st Contact Info) Description 11/25/2024 9:30 AM EST Office Visit [facility] MEDICINE 230 [place] [address] Amanda Adame MD 230 [place] [address] Chronic bilateral low back pain without sciatica [...] the past 12 months, has t he [employer], gas, oil or water [employer] threatened to shut off services in your [...] Department Care Team ([facility] Contact Info) Description 12/19/2024 1:00 PM EST Medication Management [facility] MEDICINE 230 [place] [address] Sola Isidro PharmD 230 [place] [address] 01/10/2025 1:00 PM EDT Office Visit [facility] MEDICINE 230 [place], [place] [phone] Alvaro Luo MD 230 [place], [place] [phone] documented as of this encounter Goals Goal Patient Goal Type Associated Problems Recent Progress Patient-Stated? Author Hemoglobin A1c < 7 Result Component 8.6( 11:35 AM EST) No Velasquez York PharmD Record your blood sugar as directed Result Component No oSla Isidro PharmD Note: Use CGM, ensuring sensor [...] documented as of this encounter Care Teams Burring Machine Operator Relationship Specialty Start Date End Date Trinidad Brice[place] [address] PCP - General Family Medicine 02/05/14 Sola Isidro PharmD [address] [place], [place] [phone] Pharmacist Internal Medicine 08/11/23 Amber Storm Aluminum Boat InspectorForestry Fire Aide 01/25/24 documented as of this encounter
--- OUTSIDE RECORDS SUMMARY | 2024-12-17 10:06 | XMS_ITS | Encounter Summary ---
Author Organization [facility] Address [address] [place] [address] Care Team Providers Care Account Executive Key Accounts Name Role Phone Physician, Pcp Unknown Primary Care Provider Nhi vailable Reason for Visit * Reason Comments DM Foot Care Nail Problem Encounter Details Date Type Department Care Team ([facility] st Contact Info) Description 11/28/2024 1:45 PM EST Office Visit Orthopedic Surgery - [place] [address] [phone] Blade Agee DPM [address] [address] Cellulitis of great toe, right (Primary Dx); Ingrowing nail; Dermatophytosis of nail Social History Tobacco Use Types Packs/Day Years Used Date Smoking Tobacco: Never Assessed Sex and Gender Information Value Date Recorded Sex Assigned at Not on file Legal Sex Male 4:32 AM EST Gender Identity Not on file Sexual Orientation Not on file documented as of this encounter Ordered Prescriptions Prescription Sig Dispense Quantity Refills Last Filled Start Date End Date silver sulfADIAZINE (Silvadene) 1 % cream Apply topically 1 (one) time each day. 50 g 11/28/2024 6 cephalexin (KEFLEX) 500 mg capsule Take 1 capsule (500 mg total) by mouth 3 (three) times a day for 10 days. 30 each 11/28/2024 5 documented in this encounter Progress Notes * [...] more painful recently lost to 3 weeks An/Ssn 2 4 Operator utilized [id number] [place] ROS: GENERAL: Pt denies nausea, fever, vomiting, [...] use disorder F10.90 History of substance abuse ([facility]) F19.11 Essential hypertension, benign I10 Mood disorder ([facility]) F39 Major depression, recurrent, chronic ([facility]) F33.9 Chronic GERD K21.9 MICH (obstructive sleep apnea) G47.33 CKD (chronic kidney disease) N18.9 Erectile dysfunction N52.9 T2DM (type 2 diabetes mellitus) ([facility]) E11.9 Hyperlipidemia E78.5 Fatty liver K76.0 Gallbladder [...] instructions given Follow-up in 2 weeks Procedure 71017: Avulsion single toenail -right great toe complete [...] documented in this encounter Plan of Treatment Not on file documented as of this encounter Visit Diagnoses Diagnosis Cellulitis of great toe, right- Primary Ingrowing nail Dermatophytosis of nail documented in this encounter Care Teams Account Executive Key Accounts Relationship Specialty Start Date End Date Physician, Pcp Unknown PCP - General 11/08/24 documented as of this encounter
--- OUTSIDE RECORDS SUMMARY | 2024-12-17 10:06 | XMS_ITS | Encounter Summary ---
Author Organization [facility], Address [address] [place] [address] Phone Care Team Providers Care Electrical Solderer Name Role Phone Trinidad Briceño DO Primary Care Provider Unava ilable Encounter Details Date Type Department Care Team (Late Contact Info) Description 07/08/2024 Orders Only [facility] [address] [place] [address] Cezar Dior PA Chronic kidney disease, stage 2 (mild); Essential [...] Visit [facility] [address] [place] [address] Aron Christensen MD [address] [place] [address] [place] [phone] documented as of this encounter Visit Diagnoses Diagnosis Chronic kidney disease, stage 2 (mild) Essential hypertension Type 2 diabetes mellitus, not otherwise specified (HCC) documented in this encounter Care Teams Electrical Solderer Relationship Specialty Start Date End Date Trinidad Briceño DO PCP - General 09/03/19 documented as of this encounter
--- OUTSIDE RECORDS SUMMARY | 2024-12-17 10:06 | XMS_ITS | Encounter Summary ---
Author Organization [employer] Address [address] [facility] 7t [place] [address] Care Team Providers Care Hotel Assistant General Manager Name Role Phone NavarroTrinidad Primary Care Provider Sola Isidro PharmD Unavailable [phone] Reason for Visit * Reason Comments Acupuncture Encounter Details Date Type Department Care Team ([facility] st Contact Info) Description 11/28/2024 9:45 AM EST Office Visit [facility] MEDICINE 230 [place] [address] Amanda Adame MD 230 [place] [address] Chronic bilateral low back pain without sciatica [...] the past 12 months, has t he [employer], gas, oil or water company threatened to [...] Description 12/19/2024 1:00 PM EST Medication Management [facility] MEDICINE 230 [place] [address] Sola Isidro PharmD 230 [place] [address] 01/10/2025 1:00 PM EDT Office Visit [facility] MEDICINE 230 [place], [place] [phone] Alvaro Luo MD 230 [place], [place] [phone] documented as of this encounter Goals Goal [...] documented as of this encounter Care Teams Hotel Assistant General Manager Relationship Specialty Start Date End Date Trinidad Briceño DO [place], [place] [phone] PCP - General Family Medicine 02/05/14 Sola Isidro PharmD [address] [place] [address] [phone] Pharmacist Internal Medicine 08/11/23 Amber Storm Mechanical Reliability EngineerDistrict Scout Executive 01/25/24 documented as of this encounter
--- OUTSIDE RECORDS SUMMARY | 2024-12-17 10:06 | XMS_ITS | Clinical Summary ---
Author Organization [facility], Address [address] [place] [address] [place] [address] Phone Care Team Providers Care Refrigeration Brazer/Solderer Name Role Phone Trinidad Briceño DO Primary [...] 1 (one) time each day Active pancrelipase, Pmo-Ltsp-Ftue, (Creon) 18025-32156 units capsule Take 2 capsules by mouth [...] Visit [facility] [address] [place] [address] Aron Christensen MD [address] [place] [address] [place] [phone] Health Maintenance Due Date Last Done Comments [...] PM EDT) Hemoglobin A1C 7.3(H) (4.0-5.6) % [facility] Comment: MONITORING: In known diabetic patients, hemoglobin A1c targets should be discussed with health care provider. DIAGNOSTIC USE: ??The [place] Diabetes Association (ADA) and the World Health [...] Supplement 1 Testing performed or reported by [facility], a Service of [facility], [address] [place] [address] Morales Mohamud MD, Rebrander [facility]# [id number] Blood (Blood, Venous) 04/04/2023 2:09 PM EDT 04/04/2023 2:12 PM EDT us Cezar [facility] BLOOD ORDERABLES Final Re sult [facility] from Last 3 Months or Most Recently Relevant to Health Maintenance Insurance [place] Care Teams Refrigeration Brazer/Solderer Relationship Specialty Start Date End Date Trinidad Briceño DO PCP - General 09/03/19
--- OUTSIDE RECORDS SUMMARY | 2024-12-17 10:06 | XMS_ITS | Encounter Summary ---
Author Organization [employer] Address [address] [facility] 7t [place] [address] Care Team Providers Care Vat House Laborer Name Role Phone NavarroTrinidad Primary Care Provider Sola Isidro PharmD Unavailable [phone] Reason for Visit * Reason Comments Acupuncture Encounter Details Date Type Department Care Team ([facility] st Contact Info) Description 12/03/2024 9:15 AM EST Office Visit [facility] MEDICINE [address] [place] [address] Amanda Adame MD [address] [place] [address] Chronic bilateral low back pain without sciatica [...] the past 12 months, has t he [employer], gas, oil or water [employer] threatened to shut off services in your [...] Progress Notes * Amanda Adame MD - 12/03/2024 9:15 AM EST Subjective Patient ID: Pablito Marie is a 64 y.o. adult who presents for Acupuncture. Pablito is here for ongoing acupuncture treatments for chronic back pain and anxiety. He is experiencing temporary pain reduction and stress relief. Review of Systems Musculoskeletal: Positive for back pain. Psychiatric/Behavioral: The patient is not nervous/anxious. Objective Physical Exam Constitutional: Appearance: Normal [...] Description 12/19/2024 1:00 PM EST Medication Management [facility] MEDICINE [address] [place] [address] Sola Isidro PharmD [address] [place] [address] 01/10/2025 1:00 PM EDT Office Visit [facility] MEDICINE [address] [place], [place] [phone] Alvaro Luo MD [address] [place], [place] [phone] documented as of this encounter Goals Goal [...] documented as of this encounter Care Teams Vat House Laborer Relationship Specialty Start Date End Date Trinidad Br[place]ño [place] [address] PCP - General Family Medicine 02/05/14 Sola Isidro PharmD [address] [place], [place] [phone] Pharmacist Internal Medicine 08/11/23 Amber Storm Rag Sorter And CutterEdge Drummer 01/25/24 documented as of this encounter
--- OUTSIDE RECORDS SUMMARY | 2024-12-17 10:06 | XMS_ITS | Encounter Summary ---
Author Organization [facility], Address [address] [place] [address] Phone Care Team Providers Care Water Meter Mechanic Name Role Phone Trinidad Briceño DO Primary Care Provider Unava ilable Encounter Details Date Type Department Care Team (Late Contact Info) Description 11/22/2023 Orders Only [facility] [address] [place] [address] Cezar Dior PA Chronic kidney disease, stage 2 (mild); Type [...] Visit [facility] [address] [place] [address] Aron Christensen MD [address] [place] [address] [place] [phone] documented as of this encounter Visit Diagnoses Diagnosis Chronic kidney disease, stage 2 (mild) Type 2 diabetes mellitus, not otherwise specified (HCC) Essential hypertension documented in this encounter Care Teams Water Meter Mechanic Relationship Specialty Start Date End Date Trinidad Briceño DO PCP - General 09/03/19 documented as of this encounter
--- OUTSIDE RECORDS SUMMARY | 2024-12-17 10:06 | XMS_ITS | Encounter Summary ---
Author Organization [employer] Address [address] [facility] 7t [place] [address] Care Team Providers Care Java Manager Name Role Phone NavarroTrinidad Primary Care Provider Sola Isidro PharmD Unavailable [phone] Reason for Visit * Reason Comments Acupuncture Encounter Details Date Type Department Care Team ([facility] st Contact Info) Description 11/26/2024 9:30 AM EST Office Visit [facility] MEDICINE [address] [place] [address] Amanda Adame MD 230 [place] [address] Chronic bilateral low back pain without sciatica [...] the past 12 months, has t he [employer], gas, oil or water company threatened to [...] Description 12/19/2024 1:00 PM EST Medication Management [facility] MEDICINE [address] [place] [address] Sola Isidro PharmD [address] [place] [address] 01/10/2025 1:00 PM EDT Office Visit [facility] MEDICINE [address] [place], [place] [phone] Alvaro Luo MD [address] [place], [place] [phone] documented as of this encounter Goals Goal [...] documented as of this encounter Care Teams Java Manager Relationship Specialty Start Date End Date Trinidad Briceño DO [address] [place], [place] [phone] PCP - General Family Medicine 02/05/14 Sola Isidro PharmD [address] [place] [address] [phone] Pharmacist Internal Medicine 08/11/23 Amber Storm Transfer Station AttendantAuricular Acupuncturist 01/25/24 documented as of this encounter
--- OUTSIDE RECORDS SUMMARY | 2024-12-17 10:06 | XMS_ITS | Encounter Summary ---
Author Organization [employer] Address [address] [facility] [address] 7t [place] [address] Care Team Providers Care Launch Leader Name Role Phone Trinidad Briceño DO Primary Care Provider Sola Isidro PharmD Unavailable [phone] Encounter Details Date Type Department Care Team ([facility] Contact Info) Description 02/06/2024 Orders Only [facility] MEDICINE [address] [place] [address] ProviderKathleen MD Social History Tobacco Use Types [...] Description 12/19/2024 1:00 PM EST Medication Management [address] [address] Sola Isidro PharmD [address] [place] [address] 01/10/2025 1:00 PM EDT Office Visit [facility] MEDICINE [address] [place] [address] Alvaro Luo MD [address] [place] [address] documented as of this encounter Goals Goal [...] Procedure Name Priority Date/Time Associated Diagnosis Comments HM COLONOSCOPY Routine 05/26/2015 8:41 AM EDT documented in this encounter Results * Hm Colonoscopy (05/26/2015 8:41 AM EDT) Historical Provider HEALTH MAINTENANCE Final Result documented in this encounter Visit Diagnoses Not on filedocumented in this encounter Additional Health Concerns Assessment Noted Time PHQ-9 Depression Total Score: 0 11/18/19 23 12:28 PM EST documented as of this encounter Care Teams Launch Leader Relationship Specialty Start Date End Date Trinidad Briceño DO [address] [place] [address] PCP - General Family Medicine 02/05/14 Sola Isidro PharmD [address] [place] [address] Pharmacist Internal Medicine 08/11/23 Amber Storm Operating Room ManagerFacing Machine Operator 01/25/24 documented as of this encounter
--- OUTSIDE RECORDS SUMMARY | 2024-12-17 10:07 | XMS_ITS | Clinical Summary ---
Author Organization [facility] Address [address] [place] [address] Phone Care Team Providers Care Department Sales Manager Name Role Phone Physician, Pcp Unknown Primary Care Provider Nhi vailable Allergies No known active allergies Medications albuterol HFA (PROAIR HFA ; PROVENTIL HFA [...] mouth 3 times daily. - Oral Active hydroCHLOROthiaz aurora (HYDRODIURIL) 25 mg tablet Take 1 Tablet [...] by mouth at bedtime. - Oral Active silver sulfADIAZINE (Silvadene) 1 % cream Apply topically 1 (one) time each day. 50 g 11/28/19 25 026 Active cephalexin (KEFLEX) 500 mg capsule Take 1 capsule (500 mg total) by mouth 3 (three) times a day for 10 days. 30 each 11/28/19 25 025 Active Problems Problem Noted Date Diagnosed Date [...] PM EST Office Visit [facility] [place] [address] [place] [phone] Blade Agee, DPM Cellulitis of great toe, right (Primary [...] 06/12/2024 9:54 AM EDT Plan of Treatment Health Maintenance Due Date Last Done Comments [...] Pneumococcal Vaccine: 50+ Years Completed 05/01/2023, 07/23/2015 Pneumococcal Vaccine: Pediatrics (0 to 5 Years) [...] patient's age to complete this topic Meningococcal B Vacine Aged Out No lo nger eligible based on patient's age to complete this topic RSV Immunization Patients Under 20 months Aged Out No longer eligible based on patient's age to complete this topic Varicella Vaccines Aged Out No longer eligible based on patient's age to complete this topic Insurance [place] Care Teams Department Sales Manager Relationship Specialty Start Date End Date Physician, Pcp Unknown PCP - General 11/08/24
--- OUTSIDE RECORDS SUMMARY | 2024-12-17 10:07 | XMS_ITS | Encounter Summary ---
Author Organization [employer] Address 75 [facility] 7t [place] [address] Care Team Providers Care Binder Coverstitch Name Role Phone Trinidad Briceño DO Primary Care Provider [phone] Sola Isidro PharmD Unavailable Encounter Details Date Type Department Care Team ([facility] st Contact Info) Description 12/11/2024 11:00 AM EST Office Visit [facility] MEDICINE [address] [place] [address] Trinidad Briceño DO 230 [place] [address] Dyspnea on exertion (Primary Dx); Type 2 diabetes mellitus with stage 3 chronic kidney disease, with long-term current use of insulin, unspecified whether stage 3a or 3b CKD (CMS/HCC) Social History Tobacco Use Types Packs/Day Years [...] AM EDT documented as of this encounter Last Filed Vital Signs Vital Sign Reading Time Taken Comments Blood Pressure 124/60 12/11/2024 11:30 AM EST Pulse 60 12/11/2024 11:30 AM EST Temperature 36.3 ??C (97.3 ??F) 12/11/2024 11:[address] Respiratory Rate 21 12/11/2024 11:30 AM EST Oxygen Saturation 97% 12/11/2024 11:30 AM EST Inhaled Oxygen Concentration - - Weight 78 kg (172 lb) 12/11/2024 11:30 AM EST Height 170.2 cm (5' 7 ) 12/11/2024 11:30 AM EST Body Mass Index 26.94 12/11/2024 11:30 AM EST documented in this encounter Plan of Treatment Upcoming Encounters Date Type Department Care Team (Late st Contact Info) Description 12/19/2024 1:00 PM EST Medication Management [facility] MEDICINE [address] [place] [address] Sola Isidro PharmD [address] [place] [address] 01/10/2025 1:00 PM EDT Office Visit [facility] MEDICINE [address] [place] [address] Alvaro Luo MD [address] [place] [address] documented as of this encounter Goals Goal [...] Procedure Name Priority Date/Time Associated Diagnosis Comments XR CHEST 2 VIEWS STAT 12/17/2024 9:20 AM EST Dyspnea on exertion POCT GLYCATED HEMOGLOBIN, TOTAL Routine 12/11/2024 11:35 AM EST Type 2 diabetes mellitus with stage 3 chronic kidney disease, with long-term current use of insulin, unspecified whether stage 3a or 3b CKD (CMS/HCC) POCT GLUCOSE Routine 12/11/2024 11:34 AM EST Type 2 diabetes mellitus with stage 3 chronic kidney disease, with long-term current use of insulin, unspecified whether stage 3a or 3b CKD (CMS/HCC) documented in this encounter Results * XR Chest 2 Views (12/17/2024 9:20 AM EST) Anatomical Region Laterality Modality Chest Radiographic Maci ging 12/17/2024 9:20 AM EST Narrative 12/17/2024 9:45 AM EST ?[facility] ?[address] ?[place] [address] ?XRay Report ? Signed ? Patient: Buitrago Marie,Pablito ?MR#: [id number] ?? [id number] ? : 1960 ?Acct:[id number] ? Age/Sex: 64 / M ?ADM Date: 12/17/24 ? Loc: HO.HHCX ? Attending Dr: Trinidad Briceño DO ? Ordering Physician: Trinidad Briceño DO ?? Date of Service: 12/17/24 ?? Procedure(s): XR chest 2V ?? Accession Number(s): [id number] ? cc: Trinidad Briceño DO ? EXAMINATION: ?? XR CHEST ? CLINICAL INFORMATION: ?? worsening SOB x several mos ? COMPARISON: ?? April 27, 2021. ? TECHNIQUE: ?? 2 views of the chest were obtained. ? FINDINGS: ?? No hyperinflation. No consolidation, pleural effusion or pneumothorax. ?? Cardiomediastinal silhouette size is normal. ?? Multilevel thoracic spondylosis. ? XR/XR chest 2V ?? IMPRESSION: ?? No acute airspace disease. ? Electronically signed by: ??Bryan Martínez MD ??12/17/2024 09:42 AM ?? EST RP ? Dictated By: ?Bryan Law MD ? Signed By: ?<Electronically signed by Bryan Deng MD in OV> ? 12/17/24 0942 ? DD/ 0920 ? TD/TT: 12/17/24 0935 ? Beater Lead: ? Procedure Note Vikas, Maya - 12/17/[address] [address] XRay Report Signed Patient: Pablito WildeMR#: [id number] : 1Acct:[id number] Age/Sex: 64 / MADM Date: 12/17/24 Loc: HO.HHCX Attending Dr: Trinidad Briceño DO Ordering Physician: Trinidad Briceño DO Date of Service: 12/17/24 Procedure(s): XR chest 2V Accession Number(s): [id number] cc: Trinidad Briceño DO EXAMINATION: XR CHEST CLINICAL INFORMATION: worsening SOB x several mos COMPARISON: April 27, 2021. TECHNIQUE: 2 views of the chest were obtained. FINDINGS: No hyperinflation. No consolidation, pleural effusion or pneumothorax. Cardiomediastinal silhouette size is normal. Multilevel thoracic spondylosis. XR/XR chest 2V IMPRESSION: No acute airspace disease. Electronically signed by: Bryan Martínez MD 12/17/2024 09:42 AM EST RP Dictated By: Bryan Law MD Signed By: <Electronically signed by Bryan Deng MDin OV> 12/17/2442 DD/ 9 TD/TT: 12/17/24934 Beater Lead: Trinidad Briceño DO IMG XR PROCEDURES Edited Res ult - Final * (ABNORMAL) POCT HGB A1C (12/11/2024 11:35 AM EST) Hemoglobin A1C 8.6(A) 4.0 - 6.0 % QC Media Lot # [id number] Lot# Expiration Date ,026 Blood 12/11/2024 11:3 5 AM EST Trinidad Briceño DO POINT OF CARE TEST ENTER/PAWEL T ORDERABLES Final Result * (ABNORMAL) POCT Glucose (12/11/2024 11:34 AM EST) Glucose Blood, POC 312(A) 60 - 200 mg/dL QC Media Lot # [id number] Lot# Expiration Date ,025 Blood Capillary blood specimen / Unknown 12/11/2024 11:34 AM EST Trinidad Briceño DO POINT OF CARE TEST ENTER/PAWEL T ORDERABLES Final Result documented in this encounter Visit Diagnoses Diagnosis Dyspnea on exertion- Primary Other dyspnea and respiratory abnormality Type 2 diabetes mellitus with stage 3 chronic kidney disease, with long-term current use of insulin, unspecified whether stage 3a or 3b CKD (CMS/HCC) documented in this encounter Additional Health Concerns Assessment Noted Time PHQ-9 Depression Total Score: 6 06/11/20 24 9:03 AM EDT documented as of this encounter Care Teams Binder Coverstitch Relationship Specialty Start Date End Date Trinidad Briceño DO [address] [place] [address] PCP - General Family Medicine 02/05/14 Sola Isidro PharmD [address] [place] [address] Pharmacist Internal Medicine 08/11/23 Amber Storm Health Services CoordinatorHead Cager 01/25/24 documented as of this encounter
--- OUTSIDE RECORDS SUMMARY | 2024-12-17 10:07 | XMS_ITS | Encounter Summary ---
Author Organization [facility] Address [address] [place] [address] Phone Care Team Providers Care Hostler Helper Name Role Phone Trinidad Briceño DO Primary Care Provider Unava ilable Encounter Details Date Type Department Care Team (Late Contact Info) Description 11/18/2021 Documentation Only [facility] [place], [address] [place] [place] [address] Reji Almeida MD [address] [facility] [place] [address] Social History Tobacco Use Types [...] Visit [facility] [address] [place] [address] Aron Christensen MD [address] [facility] [address] [place] [address] documented as of this encounter Visit Diagnoses Not on filedocumented in this encounter Care Teams Hostler Helper Relationship Specialty Start Date End Date Trinidad Briceño DO PCP - General 09/03/19 documented as of this encounter
--- OUTSIDE RECORDS SUMMARY | 2024-12-17 10:07 | XMS_ITS | Encounter Summary ---
Author Organization [employer] Address 75 [facility] 7t [place] [address] Care Team Providers Care Tester Electronic Scale Name Role Phone Yoon Briceñofer Primary Care Provider Sola Isidro PharmD Unavailable [phone] Reason for Visit * Reason Comments Acupuncture Encounter Details Date Type Department Care Team ([facility] Contact Info) Description 12/17/2024 9:30 AM EST Office Visit [facility] MEDICINE [address] [place] [address] Arrived Social History Tobacco Use Types Packs/Day Years [...] EST Medication Management [facility] MEDICINE [address] [place] [address] Sola Isidro PharmD [address] [place] [address] 01/10/2025 1:00 PM EDT Office Visit [address] [address] Alvaro Luo MD [address] [place] [address] documented as of this encounter Goals Goal [...] documented as of this encounter Care Teams Tester Electronic Scale Relationship Specialty Start Date End Date Trinidad Briceño DO 230 [place] [address] PCP - General Family Medicine 02/05/14 Sola Isidro PharmD 230 [place] [address] Pharmacist Internal Medicine 08/11/23 Amber Storm Bow TackerGlass Or Mirror Inspector 01/25/24 documented as of this encounter
--- OUTSIDE RECORDS SUMMARY | 2024-12-17 10:07 | XMS_ITS | Encounter Summary ---
Author Organization [employer] Address 75 [facility] 7t [place] [address] Care Team Providers Care Alteration Hand Name Role Phone NavarroLuz ElenaTrinidad Primary Care Provider [phone] Sola Isidro PharmD Unavailable [phone] Encounter Details Date Type Department Care Team (Latest Contact Info) Description 12/11/2024 Travel Social History Tobacco Use Types Packs/Day [...] Description 12/19/2024 1:00 PM EST Medication Management [facility] MEDICINE [address] [place] [address] Sola Isidro PharmD [address] [place] [address] 01/10/2025 1:00 PM EDT Office Visit [facility] MEDICINE [address] [place] [address] Alvaro Luo MD [address] [place] [address] documented as of this encounter Goals Goal [...] documented as of this encounter Care Teams Alteration Hand Relationship Specialty Start Date End Date Trinidad Briceño DO [address] [place], [place] [phone] PCP - General Family Medicine 02/05/14 Sola Isidro PharmD 230 [place], [place] [phone] Pharmacist Internal Medicine 08/11/23 Amber Storm Churn OperatorSystems Spec 01/25/24 documented as of this encounter
--- OUTSIDE RECORDS SUMMARY | 2024-12-17 10:07 | XMS_ITS | Encounter Summary ---
Author Organization [facility] Address [address] [facility] 7t [place] [address] Care Team Providers Care Pipe Organ Builder Name Role Phone Trinidad Briceño DO Primary Care Provider DelVelasquez mir PharmD Unavailable Unavail able Sola Isidro PharmD Unavailable [phone] Encounter Details Date Type Department Care Team ([facility] st Contact Info) Description 04/12/2023 Telephone [facility] MEDICINE [address] [place] [address] Trinidad Briceño DO [address] [place] [address] Social History Tobacco Use Types Packs/Day Years [...] Description 12/19/2024 1:00 PM EST Medication Management [address] [address] Sola Isidro PharmD [address] [place] [address] 01/10/2025 1:00 PM EDT Office Visit [address] [address] Alvaro Luo MD [address] [place] [address] documented as of this encounter Goals Goal Patient Goal Type Associated Problems Recent Progress Patient-Stated? Author Hemoglobin A1c < 7 Result Component 8.6(12/11/2024 11:35 AM EST) No Velasquez York, PharmGiselle documented as of this encounter Visit Diagnoses Not on filedocumented in this encounter Additional Health Concerns Assessment Noted Time PHQ-9 Depression Total Score: 0 11/18/19 23 12:28 PM EST documented as of this encounter Care Teams Pipe Organ Builder Relationship Specialty Start Date End Date Trinidad Briceño DO [address] [place] [address] PCP - General Family Medicine 02/05/14 Velasquez York, PharmD [address] [place] [address] Pharmacist Internal Medicine 12/28/22 08/10/23 Sola Isidro, KamillaD [address] [place] [address] Pharmacist Internal Medicine 08/11/23 Amber Storm Cfo ControllerNuclear Logging Engineer 01/25/24 documented as of this encounter
--- OUTSIDE RECORDS SUMMARY | 2024-12-17 10:07 | XMS_ITS | Encounter Summary ---
Author Organization [facility] Address [address] [facility] 7t [place] [address] Care Team Providers Care Ground Surveillance Systems Operator Name Role Phone Yoon Briceñofer Primary Care Provider Sola Isidro PharmD Unavailable Reason for Referral * Consultation (Routine) - Authorized Specialty Diagnoses / Procedures Referred By Contac t Referred To Contact Podiatry Diagnoses Onychomycosis of multiple toenails with type 2 diabetes mellitus (CMS/HCC) ([facility]) Tonie Zaragoza MD [address] [place] [address] Phone: tel: fax: Blade Agee DPM [address] [facility] [address] [place] [address] Phone: tel: fax: Referral ID Status Reason Start Date Expiration Date Visits Requested Visits Authorized [id number] Authorized Specialty Services Required 11/01/2024 11/01/2025 6 6 Encounter Details Date Type Department Care Team (Late st Contact Info) Description 11/01/2024 Orders Only [facility] [address] [place] [address] Tonie Zaragoza MD [address] [place], [place] Onychomycosis of multiple toenails with type 2 diabetes mellitus (CMS/HCC) ([facility]) (Primary Dx) Social History Tobacco Use Types [...] Description 12/19/2024 1:00 PM EST Medication Management [facility] [address] [place] [address] Sola Isidro, PharmD [address] [place] [address] 01/10/2025 1:00 PM EDT Office Visit [facility] [address] [place], [place] [phone] Alvaro Luo MD [address] [place] [address] Scheduled Referrals Name Type Priority Associated Diagnoses Orde r Schedule Referral to Podiatry Outpatient Referral Routine Onychomycosis of multiple toenails with type 2 diabetes mellitus (CMS/HCC) (CMS/HCC) Expected: 11/01/2024 (Approximate), Expires: 11/01/2025 documented as [...] toenails with type 2 diabetes mellitus (CMS/HCC) ([facility])- Primary documented in this encounter Additional Health Concerns Assessment Noted Time PHQ-9 Depression Total Score: 6 06/11/20 24 9:03 AM EDT documented as of this encounter Care Teams Ground Surveillance Systems Operator Relationship Specialty Start Date End Date Trinidad Briceño DO [address] [place] [address] PCP - General Family Medicine 02/05/14 Sola Isidro PharmD [address] [place] [address] Pharmacist Internal Medicine 08/11/23 Amber Storm Assistant CoachAuto Inspector 01/25/24 documented as of this encounter
--- OUTSIDE RECORDS SUMMARY | 2024-12-17 10:07 | XMS_ITS | Encounter Summary ---
Author Organization [employer] Address [address] [facility] 7t [place] [address] Care Team Providers Care Cheese Cutter Name Role Phone Trinidad Briceño DO Primary Care Provider [phone] Sola Isidro PharmD Unavailable [phone] Reason for Visit * Reason Comments Med Refill Encounter Details Date Type Department Care Team ([facility] st Contact Info) Description 12/12/2024 Refill [facility] [address] [place] [address] Trinidad Briceño DO [address] [place] [address] Social History Tobacco Use Types Packs/Day Years [...] the past 12 months, has t he Alert[employer], gas, oil or water company threatened to [...] Description 12/19/2024 1:00 PM EST Medication Management [address] [address] Sola Isidro PharmD [address] [place] [address] 01/10/2025 1:00 PM EDT Office Visit [facility] [address] [place] [phone] Alvaro Luo MD [address] [place] [address] documented as of this encounter Goals Goal [...] documented as of this encounter Care Teams Cheese Cutter Relationship Specialty Start Date End Date Trinidad Briceño DO [address] [place] [address] PCP - General Family Medicine 02/05/14 Sola Isidro PharmD [address] [place] [address] Pharmacist Internal Medicine 08/11/23 Amber Storm Tavern KeeperVarnishing Machine Operator 01/25/24 documented as of this encounter
--- OUTSIDE RECORDS SUMMARY | 2024-12-17 10:07 | XMS_ITS | Encounter Summary ---
Author Organization [employer] Address [address] [facility] 7t [place] [address] Care Team Providers Care Sales Consultant Insurance Name Role Phone Trinidad Briceño DO Primary Care Provider [phone] Sola Isidro PharmD Unavailable [phone] Reason for Visit * Reason Comments Med Refill Encounter Details Date Type Department Care Team ([facility] st Contact Info) Description 09/19/2024 Refill [facility] [address] [place] [address] Trinidad Briceño DO [address] [place] [address] Hypertension, unspecified type Social History Tobacco Use [...] the past 12 months, has t he [employer], [facility] [place] [facility], oil or water [employer] threatened to shut off services in your [...] Description 12/19/2024 1:00 PM EST Medication Management [address] [address] Sola Isidro PharmD [address] [place] [address] 01/10/2025 1:00 PM EDT Office Visit [address] [address] Alvaro Luo MD [address] [place] [address] documented as of this encounter Goals Goal [...] documented as of this encounter Care Teams Sales Consultant Insurance Relationship Specialty Start Date End Date Trinidad Briceño DO [address] [place] [address] PCP - General Family Medicine 02/05/14 Sola Isidro PharmD [address] [place] [address] Pharmacist Internal Medicine 08/11/23 Amber Storm Corduroy Cutter OperatorCardiac Rehab Nurse 01/25/24 documented as of this encounter
--- OUTSIDE RECORDS SUMMARY | 2024-12-17 10:07 | XMS_ITS | Clinical Summary ---
Author Organization [employer] Address [address] [facility] 7t [place] [address] Care Team Providers Care Vascular Surgery Physician Name Role Phone NavarroTrinidad Primary Care Provider Sola Isidro PharmD Unavailable [phone] Allergies No known active allergies Medications * This document contains information received from the source organization and may not represent a complete record from that organization. Diclofenac Sodium 1 % gel Apply 2 g topically 2 times daily. 08/22/20 22 Active traZODone (Desyrel) 100 MG tablet Take [...] time each day. Active Continuous Blood Gluc Headwaitress (FreeStyle Delia 2 [place]) device Use to check blood sugar at least every 8 hours 1 each 02/17/20 23 Active TRUEplus Glucose On The Go 4 g chewable tabletIndications :Type 2 diabetes mellitus with stage 3 chronic kidney disease, with long-term current use of insulin, unspecified whether stage 3a or 3b CKD ([facility]/HCC) CHEW 4 TABLETS BY MOUTH NEEDED FOR LOW BLOOD SUGAR (LESS THAN 70 MG/DL) 50 tablet 11 08/11/20 23 Active Multiple Vitamins-Minerals (PreserVision AREDS 2) capsule Take 1 capsule by mouth 2 times daily. 60 capsule 11 09/13/20 23 Active glucose blood (FreeStyle Precision Jorge Luis Test) test strip Use to test blood sugar up to 3 times daily, as directed 100 each 11 04/11/20 24 Active ammonium lactate (Lac-Hydrin) 12 % lotion APLIQUE A OCAMPO ERIN UA DERECHA EVERY EVENING AND USE MEDIAS A LA HORA DE ACOSTARSE 06/12/20 24 Active polyvinyl alcohol (Liquifilm Tears) 1.4 % ophthalmic solution INSTILL 1 DROP IN THE RIGHT EYE 4 TIMES A DAY IN THE MORNING, AT NOON, IN THE EVENING, AND AT BEDTIME NEEDED FOR DRY EYES 05/16/20 24 Active Jardiance 25 MGIndications:Typ e 2 diabetes mellitus with stage 3 chronic kidney disease, with long-term current use of insulin, unspecified whether stage 3a or 3b CKD (CMS/HCC) TAKE 1 TABLET BY MOUTH EVERY MORNING 30 tablet 07/15/20 24 Active naltrexone (Depade) 50 MG tabletIndications :Alcohol use disorder, severe, dependence (CMS/HCC) Take 1 tablet (50 mg) by mouth Once per day. 90 tablet 3 07/26/20 24 025 Active Continuous Glucose Sensor (FreeStyle Delia 2 Sensor) miscIndications:T ype 2 diabetes mellitus with stage 3 chronic kidney disease, with long-term current use of insulin, unspecified whether stage 3a or 3b CKD (CMS/HCC) TEST BLOOD SUGAR EVERY 8 HOURS 2 each 08/02/20 24 Active Alcohol Swabs (Alcohol Prep) 70 % padsIndications:T ype 2 diabetes mellitus with stage 3 chronic kidney disease, with long-term current use of insulin, unspecified whether stage 3a or 3b CKD (CMS/HCC) USE DIRECTED WITH INSULIN INJECTION 100 each 08/09/20 24 Active insulin pen needle (Pentips) 32G x 4 mm miscIndications:T ype 2 diabetes mellitus with stage 3 chronic kidney disease, with long-term current use of insulin, unspecified whether stage 3a or 3b CKD (CMS/HCC) USE ONCE DAILY 100 each 3 08/13/20 24 Active FreeStyle lancetsIndication s:Type 2 diabetes mellitus with stage 3 chronic kidney disease, with long-term current use of insulin, unspecified whether stage 3a or 3b CKD (CMS/HCC) 1 each by Other route 3 times daily. Test blood sugar 3 times daily 100 each 08/13/20 24 Active amLODIPine (Norvasc) 10 MG tabletIndications :Hypertension, unspecified type Take 1 tablet (10 mg) by mouth in the morning. 90 tablet 1 09/19/20 24 Active tamsulosin (Flomax) 0.4 MG 24 hr capsule TAKE 1 CAPSULE BY MOUTH EVERY EVENING (1/2 HOUR AFTER MEALS) 90 capsule 1 09/19/20 24 Active ziprasidone (Geodon) 60 MG capsule Take 60 mg by mouth with breakfast and with evening meal. 09/13/20 24 Active Arnuity Ellipta 100 MCG/ACT inhaler INHALE 1 PUFF BY MOUTH EVERY DAY AT THE SAME TIME RINSE MOUTH AFTER USING 30 each 1 11/04/19 25 Active Aspirin Low Dose 81 MG EC tabletIndications :Other hyperlipidemia TAKE 1 TABLET BY MOUTH EVERY MORNING 90 tablet 3 11/07/19 25 Active atorvastatin (Lipitor) 80 MG tabletIndications :Other hyperlipidemia TAKE 1 TABLET BY MOUTH AT BEDTIME 90 tablet 3 11/07/19 25 Active docusate sodium (Colace) 100 MG capsuleIndication s:Other constipation TAKE 1 CAPSULE BY MOUTH TWICE DAILY IN THE MORNING AND IN THE EVENING 180 capsule 11/07/19 25 Active FeroSul 325 (65 Fe) MG tabletIndications :Anemia, unspecified type TAKE 1 TABLET BY MOUTH EVERY MORNING WITH BREAKFAST 90 tablet 3 11/07/19 25 Active hydroCHLOROthiazi de (HYDRODiuril) 25 MG tabletIndications :Essential hypertension TAKE 1 TABLET BY MOUTH EVERY MORNING 90 tablet 3 11/07/19 25 Active metoprolol succinate XL (Toprol-XL) 200 MG 24 hr tabletIndications :Essential hypertension TAKE 1 TABLET BY MOUTH EVERY MORNING 90 tablet 11/07/19 25 Active Tirzepatide (Mounjaro) 7.5 MG/0.5ML solution auto-injectorIndi cations:Type 2 diabetes mellitus with stage 3 chronic kidney disease, with long-term current use of insulin, unspecified whether stage 3a or 3b CKD (CMS/HCC) Inject 7.5 mg under the skin 1 (one) time per week. 2 mL 11/14/19 25 Active insulin glargine (Lantus SoloStar) 100 UNIT/ML penIndications:Ty pe 2 diabetes mellitus with stage 3 chronic kidney disease, with long-term current use of insulin, unspecified whether stage 3a or 3b CKD (CMS/HCC) Inject 38 Units under the skin Once per day. 15 mL 5 11/14/19 25 Active albuterol (Ventolin HFA) 108 (90 Base) MCG/ACT inhaler INHALE 2 PUFFS BY MOUTH EVERY 4 TO 6 HOURS NEEDED FOR SHORTNESS OF BREATH 18 g 1 11/19/19 25 Active silver sulfADIAZINE (Silvadene) 1 % cream Apply topically Once per day. 11/28/19 25 026 Active ziprasidone (Geodon) 40 MG capsule TAKE 1 TABLET BY MOUTH TWICE DAILY IN THE MORNING AND IN THE EVENING WITH FOOD 10/18/20 24 Active cholecalciferol (Vitamin D-3) 25 MCG tablet TAKE 1 TABLET BY MOUTH EVERY MORNING 90 tablet 3 12/12/19 25 Active omeprazole (PriLOSEC) [address] capsule TAKE 1 CAPSULE BY MOUTH TWICE DAILY IN THE MORNING AND IN THE EVENING BEFORE MEALS 180 capsule 3 12/12/19 25 Active gabapentin (Neurontin) 300 MG capsule TAKE 1 CAPSULE BY MOUTH THREE TIMES DAILY IN THE MORNING, EVENING, AND BEDTIME 90 capsule 3 12/12/19 25 Active dulaglutide (Trulicity) 0.75 MG/0.5ML solution pen-injectorIndic ations:Type 2 diabetes mellitus with stage 3 chronic kidney disease, with long-term current use of insulin, unspecified whether stage 3a or 3b CKD (CMS/HCC) Inject 0.75 mg under the skin 1 (one) time per week. 4 each 03/01/20 23 Discontinued cholecalciferol 25 MCG tablet TAKE 1 TABLET BY MOUTH EVERY MORNING 90 tablet 3 01/03/20 24 025 Discontinued omeprazole (PriLOSEC) [address] capsule TAKE 1 CAPSULE BY MOUTH TWICE DAILY IN THE MORNING AND IN THE EVENING BEFORE MEALS 180 capsule 3 01/03/20 24 025 Discontinued gabapentin (Neurontin) 300 MG capsule TAKE 1 CAPSULE BY MOUTH THREE TIMES DAILY IN THE MORNING, EVENING, AND BEDTIME 90 capsule 5 06/18/20 24 025 Discontinued albuterol (Ventolin HFA) 108 (90 Base) MCG/ACT inhaler INHALE 2 PUFFS BY MOUTH EVERY 4 TO 6 HOURS NEEDED FOR SHORTNESS OF BREATH 18 g 1 09/05/20 24 025 Discontinued cephalexin (Keflex) 500 MG capsule Take 500 mg by mouth 3 times daily. 11/28/19 25 025 Active Problems Problem Noted [...] Encounters Date Type Department Care Team Description 12/17/2024 9:30 AM EST Office Visit [facility] [place] [address] Arrived 12/17/2024 Travel 12/12/2024 Refill [facility] [place] [address] Trinidad Briceño, 12/11/2024 11:00 AM EST Office Visit [facility] [place] [address] Trinidad Briceño DO Dyspnea on exertion (Primary Dx); Type 2 diabetes mellitus with stage 3 chronic kidney disease, with long-term current use of insulin, unspecified whether stage 3a or 3b CKD ([facility]) 12/11/2024 Travel 12/03/2024 9:15 AM EST Office Visit [facility] [place] [address] Amanda Adame MD Chronic bilateral low back pain without sciatica (Primary Dx) 12/03/2024 Travel 11/28/2024 9:45 AM EST Office Visit [facility] [place] [address] Amanda Adame MD Chronic bilateral low back pain without sciatica (Primary Dx) 11/28/2024 Travel 11/26/2024 9:30 AM EST Office Visit [facility] [place] [address] Amanda Adame MD Chronic bilateral low back pain without sciatica (Primary Dx) 11/26/2024 Travel 11/25/2024 9:30 AM EST Office Visit [facility] [place] [address] Amanda Adame MD Chronic bilateral low back pain without sciatica (Primary Dx) 11/17/2024 Refill [facility] [place] [address] Trinidad Briceño DO 11/14/2024 9:30 AM EST Office Visit [facility] [place] [address] Amanda Adame MD Chronic bilateral low back pain without sciatica (Primary Dx) 11/14/2024 Telephone [facility] [address] [place] [address] Trinidad Briceño DO telephone call 11/14/2024 Travel 11/12/2024 1:00 PM EST Office Visit [facility] [address] [place] [address] Pradip, Shyanne, OD Diabetes type 2, no ocular involvement (CMS/HCC) (Primary Dx); Early dry stage nonexudative age-related macular degeneration of both eyes; Dry eyes, bilateral; Combined forms of age-related cataract of both eyes; Chorioretinal scar, right eye; Presbyopia 11/12/2024 Travel 11/07/2024 Refill [facility] [address] [place] [address] Trinidad Briceño DO Other hyperlipidemia; Other constipation; Anemia, unspecified type; Essential hypertension 11/03/2024 Refill [facility] [address] [place] [address] Trinidad Briceño DO 11/01/2024 Orders Only [facility] [address] [place] [address] Tonie Zaragoza MD Onychomycosis of multiple toenails with type 2 diabetes mellitus (CMS/HCC) (CMS/HCC) (Primary Dx) 10/28/2024 Telephone [facility] [address] [place] [address] Trinidad Briceño DO Referral 10/18/2024 1:15 PM EST Office Visit [facility] [address] [place] [address] Alvaro Luo MD Alcohol use disorder, severe, dependence (CMS/HCC) (Primary Dx) 10/18/2024 Patient Outreach [facility] [address] [place] [address] Lencho White Recovery Supports 10/18/2024 Travel 10/17/2024 Telephone [facility] [address] [place] [address] Sola Isidro, KamillaD Prior Authorization ([place]) 10/11/2024 Telephone [facility] [address] [place], [place] [phone] Belia Ramirez, TAJ CP Care Management Meeting (Request for Walker with seat and Cane) 09/19/2024 Refill [facility] [address] [place], [place] [phone] Trinidad Briceño DO Hypertension, unspecified type 09/19/2024 Refill [facility] [address] [place], [place] [phone] Tirnidad Briceño DO Hypertension, unspecified type from Last 3 Months Immunizations Name Administration [...] Mass Index 26.94 12/11/2024 11:30 AM EST Plan of Treatment Upcoming Encounters Date Type Department Care Team (Late st Contact Info) Description 12/19/2024 1:00 PM EST Medication Management [facility] [address] [place] [phone] Sola Isidro, PharmD [address] [place] [address] 01/10/2025 1:00 PM EDT Office Visit [facility] [address] [place] [phone] Alvaro Luo MD [address] [place] [address] Health Maintenance Due Date Last Done Comments CT Colonography 1961 FIT DNA/Cologuard 1961 FIT 1961 FOBT 1960 Sigmoidoscopy 1960 Hepatitis A Vaccines (1 of 2 - Risk 2-dose series) 1980 Diabetes: Foot Exam 01/03/2025 01/04/2024, 01/04/2024, 01/04/2024, Additional history exists Diabetes: Hemoglobin A1C 03/10/2025 025, 10/17/2024, 06/11/2024, Additional history exists Lipid Panel 04/18/2025 04/18/2024, 03/30, 03/25/2022, Additional history exists Colonoscopy 05/26/2025 05/26/2015 Colorectal Cancer Screening 05/26/2025 Depression Screening 06/11/2025 06/11/2024, 06/11/20 DTaP/Tdap/Td Vaccines (2 - Td or Tdap) 07/23/2025 07/23/2015 Alcohol/Substance Use Screening 12/11/2025 12/11/2024 SDOH Screening 12/11/2025 12/11/2024 Tobacco Screening 12/11/2025 12/11/2024 Eye Exam 11/12/2026 11/12/2024, 10/30, 11/12/2024, Additional [...] Component 8.6( 11:35 AM EST) No Velasquez [place], PharmGiselle Record your blood sugar as directed [...] whether stage 3a or 3b CKD (CMS/HCC) OCT, RETINA - OU - BOTH EYES Routine 11/12/2024 1:00 PM EST Early dry stage nonexudative age-related macular degeneration of both eyes POCT GLYCATED HEMOGLOBIN, TOTAL Routine 10/17/2024 2:30 [...] Recently Relevant to Health Maintenance Results * XR Chest 2 Views (12/17/2024 9:20 AM EST) Anatomical Region Laterality Modality Chest Radiographic Maci ging 12/17/2024 9:20 AM EST Narrative 12/17/2024 9:45 AM EST ?[facility] ?[address] ?[place] [address] ?XRay Report ? Signed ? Patient: Buitrago Marie,Pablito ?MR#: [id number] ?? [id number] ? : 1960 ?Acct:[id number] ? Age/Sex: 64 / M ?ADM Date: 12/17/24 ? Loc: HO.HHCX ? Attending Dr: Trinidad Briceño DO ? Ordering Physician: Trinidad Briceño DO ?? Date of Service: 12/17/24 ?? Procedure(s): XR chest 2V ?? Accession Number(s): [id number] ? cc: Trinidad Briceño DO ? EXAMINATION: [...] DD/ 0920 ? TD/TT: 12/17/24 0935 ? Guard Range: ? Procedure Note Vikas, Image - 12/17/[address] [address] XRay Report Signed Patient: Pablito WildeMR#: [id number] : 1Acct:[id number] Age/Sex: 64 / MADM Date: 12/17/24 Loc: HO.HHCX Attending Dr: Trinidad Briceño DO Ordering Physician: Trinidad Briceño DO Date of Service: 12/17/24 Procedure(s): XR chest 2V Accession Number(s): [id number] cc: Trinidad Briceño DO EXAMINATION: XR CHEST CLINICAL INFORMATION: worsening SOB x several mos COMPARISON: April 27, 2021. TECHNIQUE: 2 views of the chest were obtained. FINDINGS: No hyperinflation. No consolidation, pleural effusion or pneumothorax. Cardiomediastinal silhouette size is normal. Multilevel thoracic spondylosis. XR/XR chest 2V IMPRESSION: No acute airspace disease. Electronically signed by: Bryan Martínez MD 12/17/2024 09:42 AM EST Dictated By: Bryan Law MD Signed By: <Electronically signed by Bryan Deng MDin OV> 12/17/2442 DD/ 9 TD/TT: 12/17/24934 Guard Range: Trinidad Briceño DO IMG XR PROCEDURES Edited Res ult - Final * (ABNORMAL) POCT HGB A1C (12/11/2024 11:35 AM EST) Only the most recent of2 resultswithin the time period is included. Hemoglobin A1C 8.6(A) 4.0 - 6.0 % QC Media Lot # [id number] Lot# Expiration Date ,026 Blood 12/11/2024 11:3 5 AM EST Trinidad Briceño DO POINT OF CARE TEST ENTER/PAWEL T ORDERABLES Final Result * (ABNORMAL) POCT Glucose (12/11/2024 11:34 AM EST) Glucose Blood, POC 312(A) 60 - 200 mg/dL QC Media Lot # [id number] Lot# Expiration Date 172,025 Blood Capillary blood specimen / Unknown 12/11/2024 11:34 AM EST Trinidad Briceño DO POINT OF CARE TEST ENTER/PAWEL T ORDERABLES Final Result * Hepatitis C Antibody with Reflex to HCV, RNA, Quantitative, Real-Time PCR (04/18/2024 8:14 AM EDT) Hepatitis C Antibody Nonreactive Nonreactive [facility] Comment:Antibodies to HCV no t detected; does not exclude early acuteHCV infection. Blood Venous blood specimen / Unknown 04/18/2024 8:14 AM EDT 04/18/2024 11:34 AM EDT Trinidad Briceño DO LAB BLOOD ORDERABLES Final R esult Performing Organization Address City/[facility] Co de Phone Number [facility] [address] [place] [phone] * HIV-1/2 Antigen and Antibodies, Fourth Generation, with Reflexes (04/18/2024 8:14 AM EDT) HIV AB/AG Nonreactive Nonreactive [facility] Comment:HIV-1 p24 Ag and/or HIV-1/HIV-2 Ab not detected.A test result that is nonreactive does not exclude thepossibility of exposure to or infection with HIV-1 and/orHIV-2. Nonreactive results in this assay for individualswith prior exposure to HIV-1 and/or HIV-2 may be due toantigen and antibody levels that are below the limit ofdetection of this assay.The [employer] HIV Ag/Ab Combo assay result andsupplemental assay results should be interpreted inconjunction with the patient's clinical presentation,history and other laboratory results. If the results areinconsistent with clinical evidence, additional testing issuggested to confirm the result. Blood Venous blood specimen / Unknown 04/18/2024 8:14 AM EDT 04/18/2024 11:34 AM EDT Trinidad Navarro LAB BLOOD ORDERABLES Final R esult Performing Organization Address City/[facility]/ZIP Co de Phone Number [facility] [address] [place] [address] [phone] * (ABNORMAL) Lipid Panel, Standard (04/18/2024 8:14 AM EDT) Triglycerides 264(H) <150 mg/dL [facility] Comment:Desirable Triglyceri de: less than 150 mg/dLBorderline High Triglyceride 150-199 mg/dLHigh Triglyceride: 200-499 mg/dLVery High Triglyceride: greater than or equal to 5OO mg/dL Cholesterol 166 <200 mg/dL [facility] Comment:Desirable Cholestero l: less than 200 mg/dLBorderline High Cholesterol: 200-239 mg/dLHigh Cholesterol: greater than 239 mg/dL LDL Cholesterol Calculated 62 <100 mg/dL [facility] Comment:Desirable LDL: less than 100 mg/dLNear Optimal/Above Optimal LDL: 110- 129 mg/dLBorderline High LDL: 130-159 mg/dLHigh LDL: 160-189 mg/dLVery High LDL: greater than or equal to 190 mg/dL HDL Cholesterol 52 >40 mg/dL [facility] Comment:Desirable HDL: great er than 40 mg/dL Note: This HDL assay may give artificially low results in patients with liver disease. Blood Venous blood specimen / Unknown 04/18/2024 8:14 AM EDT 04/18/2024 11:34 AM EDT Trinidad Briceño DO LAB BLOOD ORDERABLES Final R esult Performing Organization Address City/[facility]/ZIP Co de Phone Number [facility] [address] [place] [address] [phone] * Hm Colonoscopy (05/26/2015 8:41 AM EDT) Historical Provider HEALTH MAINTENANCE Final Result from Last 3 Months or Most Recently Relevant to Health Maintenance Insurance [facility] C3 Care Teams Vascular Surgery Physician Relationship Specialty Start Date End Date Trinidad Briceño DO [address] [place] [address] PCP - General Family Medicine 02/05/14 Sola Isidro PharmD [address] [place] [address] Pharmacist Internal Medicine 08/11/23 Amber Storm Fire Sprinkler InstallerEvent Host 01/25/24
== END 2024-12-17 09:21 | disposition home or self-care (01) ==
LOC: HO.HHCX 09:20
PROVIDERS: Visit Provider Family Medicine
DX: R06.09 Other forms of dyspnea (principal)
CPT/HCPCS: 71046

== ENCOUNTER → 2024-12-17 09:20 | Outpatient (BNV) | payer MEDICAID, SELFPAY | PROVIDERS: Visit Provider Radiology Diagnostic Radiology | DX: R06.02 Shortness of breath (principal) | CPT/HCPCS: 71046 ==

== ENCOUNTER 2025-07-18 08:04 | Outpatient (REF) | payer MEDICAID, SELFPAY ==
[2025-07-18 12:00] LABS: Alanine Aminotransferase 31 U/L (0-40); Albumin Level 4.7 g/dL (3.5-5.0); Alkaline Phosphatase 60 U/L (39-117); Anion Gap 12 (12-20); Aspartate Amino Transferase 34 U/L (5-37); Blood Urea Nitrogen 13 mg/dL (9-16); Calcium 9.8 mg/dL (8.4-10.2); Carbon Dioxide 37 mmol/L (22-29); Chloride 97 mmol/L (96-108); Cholesterol 212 mg/dL (<200); Estimated Glomerular Filt Rate > 60; HDL Cholesterol 40 mg/dL (>40); Potassium 3.7 mmol/L (3.3-5.1); Sodium 142 mmol/L (135-145); Total Protein 8.4 g/dL (6.5-8.0); Triglycerides 162 mg/dL (<150)
[2025-07-18 12:09] LABS: PSA,Total (Free>4and<10) 0.83 ng/mL (0.00-4.00)
[2025-07-18 12:32] LABS: Microalbum/Creatinine Ratio Ur 38.1 ug/mg cr (<30)
== END 2025-07-18 08:05 | disposition home or self-care (01) ==
LOC: HO.HHCL 08:04
PROVIDERS: PCP Family Medicine; Visit Provider Family Medicine
DX: Z00.00 Encounter for general adult medical examination without abnormal findings (principal); I12.9 Hypertensive chronic kidney disease with stage 1 through stage 4 chronic kidney disease, or unspecified chronic kidney disease; E11.22 Type 2 diabetes mellitus with diabetic chronic kidney disease; N18.30 Chronic kidney disease, stage 3 unspecified; E78.49 Other hyperlipidemia; Z79.4 Long term (current) use of insulin; Z12.5 Encounter for screening for malignant neoplasm of prostate
CPT/HCPCS: 36415; 80048; 80061; 80076; 82043; 82570; 84153

== ENCOUNTER 2025-07-23 16:01 | Outpatient (REF) | payer MEDICAID, SELFPAY ==
--- OUTSIDE RECORDS SUMMARY | 2025-07-23 10:00 | XMS_ITS | Encounter Summary ---
Author Organization [employer] Address [address] [facility] [address] [place] [address] Care Team Providers Care Individualized Education Plan Aide Name Role Phone Trinidad Briceño DO Primary Care Provider Sola Isidro PharmD Unavailable [phone] Encounter Details Date Type Department Care Team (Latest Contact Info) Description 07/23/2025 10:00 AM EDT Office Visit [facility] [address] [place] [address] Trinidad Briceño DO [address] [place] [address] Type 2 diabetes mellitus with stage 3 chronic kidney disease, with long-term current use of insulin, unspecified whether stage 3a or 3b CKD (CMS/HCC) (Primary Dx); Essential hypertension; Other hyperlipidemia; Mood disorder (CMS/HCC); Stage 3 chronic kidney disease, unspecified whether stage 3a or 3b CKD (CMS/HCC); Obstructive sleep apnea; Fatty liver; Gallbladder polyp; Chronic gastroesophageal reflux disease; Chronic bilateral low back pain without sciatica; Alcohol use disorder; History of tobacco use; Polyarthralgia; Onychomycosis; Dysphagia, unspecified type; Healthcare maintenance; Dietary counseling; Exercise counseling; Encounter for immunization; Tremor of right hand; Acute UTI Social History Tobacco Use Types Packs/Day Years [...] Answer Date Recorded Patient Health Questionnaire-9 Score 12 07/23/2025 Patient Health Questionnaire-9 Score 12 07/23/2025 Last PHQ-9: Questionnaire Data Not on file 0 07/23/2025 Housing Stability Answer Date Recorded What is [...] Date Recorded Patient Health Questionnaire-2 Score 4 07/23/2025 Internet Access Answer Date Recorded Internet Access [...] Sign Reading Time Taken Comments Blood Pressure 114/68 07/23/2025 10:05 AM EDT Pulse 72 07/23/2025 10:05 AM EDT Temperature 36 C (96.8 F) 07/23/2025 10:05 AM EDT Respiratory Rate 18 07/23/2025 10:05 AM EDT Oxygen Saturation - - Inhaled Oxygen Concentration - - Weight 72.7 kg (160 lb 6 oz) 07/23/2025 10:05 AM EDT Height 170.2 cm (5' 7 ) 07/23/2025 10:05 AM EDT Body Mass Index 25.12 07/23/2025 10:05 AM EDT documented in this encounter Functional Status * Over the past 2 weeks, how often have you been bothered by any of the following problems? Question Answer Date of Assessment Author Patient Health Questionnaire-2 Score 4 07/01 10:13 AM EDT Julio Escalante MA * Little interest or pleasure in doing things Answer Date of Assessment Author More than half the days 07/23/2025 10:13 AM EDT Julio Escalante MA * Feeling down, depressed, or hopeless Answer Date of Assessment Author More than half the days 07/23/2025 10:13 AM EDT Julio Escalante MA * Trouble falling or staying asleep, or sleeping too much Answer Date of Assessment Author Several days 07/23/2025 10:13 AM EDT Sydney Escalante MA * Feeling tired or having little energy Answer Date of Assessment Author More than half the days 07/23/2025 10:13 AM EDT Julio Escalante MA * Poor appetite or overeating Answer Date of Assessment Author Not at all 07/23/2025 10:13 AM EDT Sydney Escalante MA * Feeling bad about yourself - or that you are a failure or have let yourself or your family down Answer Date of Assessment Author Several days 07/23/2025 10:13 AM EDT Sydney Escalante MA * Trouble concentrating on things, such as reading the newspaper or watching television Answer Date of Assessment Author More than half the days 07/23/2025 10:13 AM EDT Julio Escalante MA * Moving or speaking so slowly that other people could have noticed? Or the opposite - being so fidgety or restless that you have been moving around a lot more than usual. Answer Date of Assessment Author More than half the days 07/23/2025 10:13 AM EDT Julio Escalante MA * Thoughts that you would be better off or hurting yourself in some way Answer Date of Assessment Author Not at all 07/23/2025 10:13 AM EDT Sydney Escalante MA * Patient Health Questionnaire-9 Score Answer Date of Assessment Author 12 07/23/2025 10:13 AM EDT Sydney Escalante MA * How difficult have these problems made it for you to do your work, take care of things at home, or get along with other people? Answer Date of Assessment Author Very difficult 07/23/2025 10:13 AM EDT Sydney Escalante MA * Over the last 2 weeks, how often have you been bothered by any of the following problems? Question Answer Date of Assessment Author Feeling nervous, anxious, or on edge 2 07/01 10:14 AM EDT Julio Escalante MA Not being able to stop or co ntrol worrying 2 07/23/2025 10:14 AM EDT Julio Escalante M A Worrying too much about diff erent things 2 07/23/2025 10:14 AM EDT Julio Escalante M A Trouble relaxing 2 07/23/2025 10:14 AM EDT Julio Escalante MA Being so restless that it is hard to sit still 2 07/23/2025 10:14 AM EDT Julio Escalante M A Becoming easily annoyed or irritable 3 07/01 10:14 AM EDT Julio Escalante MA Feeling afraid as if somethi ng awful might happen 2 07/23/2025 10:14 AM EDT Julio Escalante M A JAC-7 Total Score 15 07/23/2025 10:14 AM EDT Julio Escalante MA documented as of this encounter Plan of Treatment Upcoming Encounters Date Type Department Care Team (Late st Contact Info) Description 08/15/2025 10:30 AM EDT Medication Management [facility] [address] [place] [address] Sola Isidro, PharmD [address] [place] [address] Scheduled Orders Name Type Priority Associated Diagnoses Orde r Schedule Culture, Urine, Routine Microbiology Routine Acute UTI Ordered: 07/23/2025 documented as of this encounter Goals Goal Patient Goal Type Associated Problems Recent Progress Patient-Stated? Author Hemoglobin A1c < 7 Result Component 7.2( 10:15 AM EDT) No Velasquez York PharmD Record your blood sugar as directed Result Component No Sola Isidro PharmD Note: Use CGM, ensuring sensor is scanned at least once every 8 hours to capture 24H data. Check BG manually, as directed. documented as of this encounter Procedures Procedure Name Priority Date/Time Associated Diagnosis Comments POCT URINALYSIS DIPSTICK Routine 07/23/2025 10:53 AM EDT Acute UTI POCT GLYCATED HEMOGLOBIN, TOTAL Routine 07/23/2025 10:15 AM EDT Type 2 diabetes mellitus with stage 3 chronic kidney disease, with long-term current use of insulin, unspecified whether stage 3a or 3b CKD ([facility]) POCT GLUCOSE Routine 07/23/2025 10:14 AM EDT Type 2 diabetes mellitus with stage 3 chronic kidney disease, with long-term current use of insulin, unspecified whether stage 3a or 3b CKD ([facility]) documented in this encounter Results * POCT Urinalysis (07/23/2025 10:53 AM EDT) Color, UA Yellow Clarity, UA Clear Glucose, UA Trace Comment:500 mg/dL Bilirubin, UA Negative Ketones, UA Negative Spec Grav, UA 1.010 Blood, UA Negative Negative, None Detected pH, UA 6.5 Protein, UA Negative Urobilinogen, UA 0.2 Leukocytes, UA Negative Negative, Rare, Trace Nitrite, UA Negative Negative, None Detected Appearance, UA clear QC Media Lot # [id number] Lot# Expiration Date ,026 Urine 07/23/2025 10:5 3 AM EDT Trinidad Briceño DO POINT OF CARE TEST ENTER/PAWEL T ORDERABLES Final Result * (ABNORMAL) POCT Hgb A1c (07/23/2025 10:15 AM EDT) Hemoglobin A1C 7.2(A) 4.0 - 5.7 % QC Media Lot # [id number] Lot# Expiration Date 472 Blood 07/23/2025 10:1 5 AM EDT Trinidad Briceño DO POINT OF CARE TEST ENTER/PAWEL T ORDERABLES Final Result * (ABNORMAL) POCT Glucose (07/23/2025 10:14 AM EDT) Glucose Blood, POC 253(A) 60 - 200 mg/dL Comment:Random QC Media Lot # [id number] Lot# Expiration Date 644 Blood Capillary blood specimen / Unknown 07/23/2025 10:14 AM EDT Trinidad Briceño DO POINT OF CARE TEST ENTER/PAWEL T ORDERABLES Final Result documented in this encounter Visit Diagnoses Diagnosis Type 2 diabetes mellitus with stage 3 chronic kidney disease, with long-term current use of insulin, unspecified whether stage 3a or 3b CKD (CMS/HCC)- Primary Essential hypertension Unspecified essential hypertension Other hyperlipidemia Mood disorder (CMS/HCC) Unspecified episodic mood disorder Stage 3 chronic kidney disease, unspecified whether stage 3a or 3b CKD (CMS/HCC) Obstructive sleep apnea Obstructive sleep apnea (adult) (pediatric) Fatty liver Other chronic nonalcoholic liver disease Gallbladder polyp Cholesterolosis of gallbladder Chronic gastroesophageal reflux disease Chronic bilateral low back pain without sciatica Alcohol use disorder History of tobacco use Personal history of tobacco use, presenting hazards to health Polyarthralgia Pain in joint, multiple sites Onychomycosis Dermatophytosis of nail Dysphagia, unspecified type Healthcare maintenance Dietary counseling Dietary surveillance and counseling Exercise counseling Encounter for immunization Tremor of right hand Acute UTI Urinary tract infection, site not specified documented in this encounter Additional Health Concerns Assessment Noted Time PHQ-9 Depression Total Score: 12 025 10:13 AM EDT documented as of this encounter Care Teams Individualized Education Plan Aide Relationship Specialty Start Date End Date Trinidad Briceño DO [address] [place] [id number] PCP - General Family Medicine 02/05/14 Sola Isirdo, Rowdy [address] [place] [address] Pharmacist Internal Medicine 08/11/23 Amber Storm Chuck 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
--- OUTSIDE RECORDS SUMMARY | 2025-07-23 18:01 | XMS_ITS | Clinical Summary ---
Author Organization [employer] Address [address] [facility] [address] [place] [address] Care Team Providers Care Trap Setter Name Role Phone LiliTrinidad phelps Primary Care Provider [phone] Sola Isidro PharmD Unavailable [phone] Allergies No known active allergies Medications * This document contains information received from the source organization and may not represent a complete record from that organization. prazosin (Minipress) 1 MG capsule Take 2 capsules by mouth at bedtime. Active clonazePAM (KlonoPIN) 0.5 MG tablet Take 1 tablet by mouth if needed each day for anxiety (severe anxiety). Active allopurinol (Zyloprim) 100 MG tablet Take 0.5 tablets by mouth 1 (one) time each day. Active Multiple Vitamins-Minerals (PreserVision AREDS 2) capsule Take 1 capsule by mouth 2 times daily. 60 capsule 11 023 Active Additional Information Patient not taking.Reason: Cost, Reported on 05/07/2025 naltrexone (Depade) 50 MG tabletIndications :Alcohol use disorder, severe, dependence (CMS/HCC) Take 1 tablet (50 mg) by mouth Once per day. 90 tablet 3 024 2024 Active Alcohol Swabs (Alcohol Prep) 70 % [...] unspecified whether stage 3a or 3b CKD ([facility]) USE ONCE DAILY 100 each 3 024 Active FreeStyle lancetsIndication s:Type 2 diabetes mellitus with stage 3 chronic kidney disease, with long-term current use of insulin, unspecified whether stage 3a or 3b CKD (CMS/HCC) 1 each by Other route 3 times daily. Test blood sugar 3 times daily 100 each 11 Active Aspirin Low Dose 81 MG EC tabletIndications :Other hyperlipidemia TAKE 1 TABLET BY MOUTH EVERY MORNING 90 tablet 3 025 Active atorvastatin (Lipitor) 80 MG tabletIndications :Other hyperlipidemia TAKE 1 TABLET BY MOUTH AT BEDTIME 90 tablet 3 025 Active docusate sodium (Colace) 100 MG capsuleIndication s:Other constipation TAKE 1 CAPSULE BY MOUTH TWICE DAILY IN THE MORNING AND IN THE EVENING 180 capsule 025 Active FeroSul 325 (65 Fe) MG tabletIndications :Anemia, unspecified type TAKE 1 TABLET BY MOUTH EVERY MORNING WITH BREAKFAST 90 tablet 3 025 Active hydroCHLOROthiazi de (HYDRODiuril) 25 MG tabletIndications :Essential hypertension TAKE 1 TABLET BY MOUTH EVERY MORNING 90 tablet 3 025 Active metoprolol succinate XL (Toprol-XL) 200 MG 24 hr tabletIndications :Essential hypertension TAKE 1 TABLET BY MOUTH EVERY MORNING 90 tablet 025 Active albuterol (Ventolin HFA) 108 (90 Base) MCG/ACT inhaler INHALE 2 PUFFS BY MOUTH EVERY 4 TO 6 HOURS NEEDED FOR SHORTNESS OF BREATH 18 g 1 025 Active cholecalciferol (Vitamin D-3) 25 MCG tablet TAKE 1 TABLET BY MOUTH EVERY MORNING 90 tablet 3 025 Active omeprazole (PriLOSEC) [address] capsule TAKE 1 CAPSULE BY MOUTH TWICE DAILY IN THE MORNING AND IN THE EVENING BEFORE MEALS 180 capsule 025 Active Continuous Glucose Furniture Builder (FreeStyle Delia 3 [place]) device 1 each 3 times daily. Use daily as directed for CGM 1 each 025 Active Continuous Glucose Sensor (FreeStyle Delia 3 Plus Sensor) misc 1 each Once per day. Apply 1 sensor every 15 days as directed for CGM 2 each 025 Active ketorolac (Acular) 0.5 % ophthalmic solution PLACE 1 DROP IN THE AFFECTED EYE THREE TIMES DAILY. START 2 DAYS BEFORE SURGERY AND CONTINUE DIRECTED Active tamsulosin (Flomax) 0.4 MG 24 hr capsule TAKE 1 CAPSULE BY MOUTH EVERY EVENING 90 capsule 1 Active amLODIPine (Norvasc) 10 MG tabletIndications :Hypertension, unspecified type TAKE 1 TABLET BY MOUTH EVERY MORNING 90 tablet 1 Active gabapentin (Neurontin) 300 MG capsule TAKE 1 CAPSULE BY MOUTH THREE TIMES DAILY IN THE MORNING, EVENING, AND BEDTIME 90 capsule 3 Active Tirzepatide (Mounjaro) 7.5 MG/0.5ML solution auto-injector Inject 7.5 mg under the skin 1 (one) time per week. 2 mL 11 Active Jardiance 25 MGIndications:Typ e 2 diabetes mellitus with stage 3 chronic kidney disease, with long-term current use of insulin, unspecified whether stage 3a or 3b CKD (CMS/HCC) TAKE 1 TABLET BY MOUTH EVERY MORNING 30 tablet Active Arnuity Ellipta 100 MCG/ACT inhaler INHALE 1 PUFF BY MOUTH EVERY DAY AT THE SAME TIME RINSE MOUTH AFTER USING 30 each 1 Active diphenhydrAMINE (BENADryl) 25 MG tablet take 2 tablets by mouth every day at bedtime Active traZODone (Desyrel) 50 MG tablet Take 50 mg by mouth if needed at bedtime. Active ziprasidone (Geodon) 20 MG capsule TAKE 1 CAPSULE BY MOUTH TWICE DAILY IN THE MORNING AND IN THE EVENING WITH FOOD Active insulin glargine (Lantus SoloStar) 100 UNIT/ML penIndications:Ty pe 2 diabetes mellitus with stage 3 chronic kidney disease, with long-term current use of insulin, unspecified whether stage 3a or 3b CKD (CMS/HCC) Inject 42 Units under the skin Once per day. 15 mL 5 025 Active glucose blood (FreeStyle Precision Jorge Luis Test) test strip Use to test blood sugar up to 3 times daily, as directed 100 each 025 Active metFORMIN XR (Glucophage-XR) 500 MG 24 hr tabletIndications :Type 2 diabetes mellitus with stage 3 chronic kidney disease, with long-term current use of insulin, unspecified whether stage 3a or 3b CKD (CMS/HCC) Take 1 tablet (500 mg) by mouth with evening meal. Do not crush, chew, or split. 30 tablet 11 025 2025 Active sulfamethoxazole- trimethoprim (Bactrim DS) 800-160 MG tablet Take 1 tablet by mouth 2 times daily for 7 days. 14 tablet 025 2024 Active traZODone (Desyrel) 100 MG tablet Take 2 tablets by mouth at bed time. 2024 Discontinued(M ed list cleanup (will not trigger notification to Pharmacy)) TRUEplus Glucose On The Go 4 g chewable tabletIndications :Type 2 diabetes mellitus with stage 3 chronic kidney disease, with long-term current use of insulin, unspecified whether stage 3a or 3b CKD (CMS/HCC) CHEW 4 TABLETS BY MOUTH NEEDED FOR LOW BLOOD SUGAR (LESS THAN 70 MG/DL) 50 tablet 023 2024 Discontinued(M ed list cleanup (will not trigger notification to Pharmacy)) glucose blood (FreeStyle Precision Jorge Luis Test) test strip Use to test blood sugar up to 3 times daily, as directed 100 each 11 024 2024 Discontinued(R eorder (will not trigger notification to Pharmacy)) polyvinyl alcohol (Liquifilm Tears) 1.4 % ophthalmic solution INSTILL 1 DROP IN THE RIGHT EYE 4 TIMES A DAY IN THE MORNING, AT NOON, IN THE EVENING, AND AT BEDTIME NEEDED FOR DRY EYES 2024 Discontinued(M ed list cleanup (will not trigger notification to Pharmacy)) Jardiance 25 MGIndications:Typ e 2 diabetes mellitus with stage 3 chronic kidney disease, with long-term current use of insulin, unspecified whether stage 3a or 3b CKD (CMS/HCC) TAKE 1 TABLET BY MOUTH EVERY MORNING 30 tablet 024 2024 Discontinued ziprasidone (Geodon) 40 MG capsule Take 40 mg by mouth with breakfast and with evening meal. 024 2024 Discontinued(M ed list cleanup (will not trigger notification to Pharmacy)) insulin glargine (Lantus SoloStar) 100 UNIT/ML penIndications:Ty pe 2 diabetes mellitus with stage 3 chronic kidney disease, with long-term current use of insulin, unspecified whether stage 3a or 3b CKD ([facility]) Inject 40 Units under the skin Once per day. 025 2024 Discontinued(R eorder (will not trigger notification to Pharmacy)) Arnuity Ellipta 100 MCG/ACT inhaler INHALE 1 PUFF BY MOUTH EVERY DAY AT THE SAME TIME RINSE MOUTH AFTER USING 30 each 1 025 2024 Discontinued Active Problems Problem Noted Date Diagnosed Date [...] Encounters Date Type Department Care Team Description 07/23/2025 10:00 AM EDT Office Visit [facility] [address] [place] [phone] Trinidad Briceño DO Type 2 diabetes mellitus [...] immunization; Tremor of right hand; Acute UTI 07/23/2025 Travel 07/22/2025 Travel 07/22/2025 Telephone [facility] [address] [place] [phone] Trinidad Briceño DO Chart Prep 07/18/2025 Results Follow-Up [address] [address] Sola Isidro PharmD Hepatic Function Panel, Basic Metabolic Panel, Lipid Panel, Standard, Additional followed-up results: 2 07/18/2025 Orders Only [facility] [address] [place] [phone] Trinidad Briceño DO 07/11/2025 Travel 07/10/2025 Travel 07/02/2025 Telephone [facility] [address] [place] [address] Trinidad Briceño DO Recall Appointment 07/02/2025 Travel 06/22/2025 Refill [facility] [address] [place] [address] Trinidad Briceño DO 06/22/2025 Refill [facility] [address] [place] [address] Sola Isidro, Rowdy Type 2 diabetes mellitus with stage 3 chronic kidney disease, with long-term current use of insulin, unspecified whether stage 3a or 3b CKD ([facility]) 05/29/2025 10:00 AM EDT Office Visit [facility] [address] [place] [address] Amanda Adame MD Chronic bilateral low back pain without sciatica (Primary Dx) 05/29/2025 Travel 05/21/2025 10:30 AM EDT Office Visit [facility] OPTOM[facility] [address] [place] [address] Pradip, Shyanne, OD Presbyopia (Primary Dx) 05/12/2025 Telephone [facility] [address] [place] [address] Trinidad Briceño DO CP Meeting 05/07/2025 Travel 04/23/2025 Refill [facility] [address] [place] [address] Trinidad Briceño DO from Last 3 Months Immunizations Immunization Administration Dates Next Due Hep B, adult 08/31/2018, 7,04/17/2017,12/15 Influenza injectable quadriv alent IIV4 with preservative 08/31/2018,07/25/2017,12/15/2016,07/23 Influenza injectable quadriv alent preservative free 09/04/2023,08/05/2022,09/16/2021,08/19 Influenza, IIV3, injectable 07/31/2014 Influenza, seasonal, injecta ble, preservative free 07/23/2025,07/18/2024 Pfizer Covid-19 Vaccine 12+ 07/18/2024,1 11/04/2022,09/08/2021,03/16,02/23/2021 Pfizer Covid-19 Vaccine 12+ Bivalent 08/05/2022 Pfizer Covid-19 Vaccine 12+ emelia-sucrose (Hankins Cap) 03/24/2022 Pneumococcal Conjugate PCV 20 05/01/2023 Pneumococcal Polysaccharide PPSV23 07/23/2015 RSV Bivalent 11/08/2023 Tdap 07/23/2025,07/23/2015 Zoster, Recombinant 08/26/2022,03/24/2022 Family History Medical History [...] Tobacco: Former Cigarettes Passive Smoke Exposure: Past Tobacco Cessation:Counseling Given: Not Answered Alcohol Use Standard Drinks/Week [...] is your housing situation today? I have dayiln cortes 08/18/[address] you [...] 18 07/23/2025 10:05 AM EDT Oxygen Saturation 98% 01/21/2025 9:23 AM EDT Inhaled Oxygen Concentration - - Weight 72.7 kg (160 lb 6 oz) 07/23/2025 10:05 AM EDT Height 170.2 cm (5' 7 ) 07/23/2025 10:05 AM EDT Body Mass Index 25.12 07/23/2025 10:05 AM EDT Plan of Treatment Upcoming Encounters Date Type Department Care Team (Late st Contact Info) Description 08/15/2025 10:30 AM EDT Medication Management [facility] [address] [place] [address] Sola Isidro, PharmD [address] [place] [address] Health Maintenance Due Date Last Done Comments CT Colonography 1961 FIT DNA/Cologuard 1961 FIT 1961 FOBT 1961 Sigmoidoscopy 1961 Hepatitis A Vaccines (1 of 2 - Risk 2-dose series) 1980 Diabetes: Foot Exam 01/03/2025 01/04/2024, 01/04/2024, 01/04/2024, Additional history exists Colonoscopy 05/26/2025 05/26/2015 Colorectal Cancer Screening 05/26/2025 Diabetes: Hemoglobin A1C 10/22/2025 025, 05/07/2025, 01/21/2025, Additional history exists SDOH Screening 12/11/2025 12/11/2024 Depression Monitoring 01/20/2026 07/23/2025, 025 Alcohol/Substance Use Screening 01/21/2026 01/21/2025 Disability Screening 01/21/2026 01/21/2025 Lipid Panel 07/18/2026 07/18/2025, 03/31, 04/13/2023, Additional history exists Tobacco Screening 07/23/2026 07/23/2025 Eye Exam 11/12/2026 11/12/2024, 10/30, 11/12/2024, Additional history exists DTaP/Tdap/Td Vaccines (3 - Td or Tdap) 07/23/2035 07/23/2025, 07/23/2015 Hepatitis B Vaccines Completed 08/31/2018, 07/25/2017, 04/17/2017, Additional history exists Zoster Vaccines Completed 08/26/2022, 03/24/2022 Pneumococcal Vaccine: 50+ Years Completed 05/01/2023, 07/23/2015 RSV Patients and Patients Aged 60 years or older Completed 11/08/2023 HIV Screening Completed 04/18/2024, 03/30, 09/16/2021 Hepatitis C Screening Completed 04/18/2024 , 04/13/2023, 09/16/2021 COVID-19 Vaccine Completed 07/18/2024, 03/2023, 08/05/2022, Additional history exists Influenza Vaccine Completed 07/23/2025, , 09/04/2023, Additional history exists HIB Vaccines Aged Out No longer eligi ble based on patient's age to complete this topic HPV Vaccines Aged Out No longer eligi ble based on patient's age to complete this topic IPV Vaccines Aged Out No longer eligi ble based on patient's age to complete this topic Meningococcal B Vaccine Aged Out No l onger eligible based on patient's age to complete [...] unspecified whether stage 3a or 3b CKD ([facility]) POCT GLUCOSE Routine 07/23/2025 10:14 AM EDT Type 2 diabetes mellitus with stage 3 chronic kidney disease, with long-term current use of insulin, unspecified whether stage 3a or 3b CKD ([facility]) ALBUMIN, RANDOM URINE W/CREATININE Routine 07/18/2025 8:10 AM EDT PSA, TOTAL WITH REFLEX TO PSA, FREE Routine 07/18/2025 8:10 AM EDT LIPID PANEL, STANDARD Routine 07/18/2025 8:10 AM EDT BASIC METABOLIC PANEL Routine 07/18/2025 8:10 AM EDT HEPATIC FUNCTION PANEL Routine 07/18/2025 8:10 AM EDT POCT GLYCATED HEMOGLOBIN, TOTAL Routine 05/07/2025 10:55 AM EDT Type 2 diabetes mellitus with stage 3 chronic kidney disease, with long-term current use of insulin, unspecified whether stage 3a or 3b CKD (CMS/HCC) Healthcare maintenance HEPATITIS C AB W/REFL TO HCV RNA, QN, PCR Routine 04/18/2024 8:14 AM EDT Healthcare maintenance HIV 1/2 ANTIGEN/ANTIBODY, FOURTH GENERATION W/RFL Routine 04/18/2024 8:14 AM EDT Healthcare maintenance HM COLONOSCOPY Routine 05/26/2015 8:41 AM EDT from Last 3 Months or Most Recently Relevant to Health Maintenance Results * POCT Urinalysis (07/23/2025 10:53 AM [...] POCT Hgb A1c (07/23/2025 10:15 AM EDT) Only the most recent of2 resultswithin the time period is included. Hemoglobin A1C 7.2(A) 4.0 - 5.7 % QC Media Lot # [id number] Lot# Expiration Date , Blood 07/23/2025 10:1 5 AM EDT Trinidad Briceño DO POINT OF CARE TEST ENTER/PAWEL T ORDERABLES Final Result * (ABNORMAL) POCT Glucose (07/23/2025 10:14 AM EDT) Glucose Blood, POC 253(A) 60 - 200 mg/dL Comment:Random QC Media Lot # [id number] Lot# Expiration Date ,140,182 Blood Capillary blood specimen / Unknown 07/23/2025 10:14 AM EDT Trinidad Briceño DO POINT OF CARE TEST ENTER/PAWEL T ORDERABLES Final Result * PSA, Total With Reflex to PSA, Free (07/18/2025 8:10 AM EDT) PSA,Total (Free>4and<10) 0.83 0.00 - 4.00 ng/mL [facility] Comment:A Free PSA was not p erformed: The percentage of Free PSA can be used to enhance the differentiation of prostate cancer from benign prostatic disease in subjects whose PSA levels are between 4.0 and 10.0 ng/mL. For subjects whose PSA levels are below 4.0 or above 10.0 ng/mL, the risk of prostate cancer is determined on the basis of the PSA alone. Therefore the % Free PSA is recommended only for those subjects whose PSA levels are between 4.0 and 10.0 ng/mL.PSA methodology: [place] Alinity i ChemiluminescentMicroparticle Immunoassay (CMIA) 07/18/2025 8:10 AM EDT 07/18/2025 11:19 AM EDT Trinidad Briceño DO LAB BLOOD ORDERABLES Final R esult [facility] [address] [place] [phone] * (ABNORMAL) Albumin, Random Urine W/Creatinine (07/18/2025 8:10 AM EDT) Creatinine, Urine 125.67 mg/dL [facility] Microalbumin Urine 48.0 mg/L [facility] Microalbum Creatinine Ratio Ur 38.1(H) <30 ug/mg cr [facility] Comment:Albumin/Creatinine R atio Reference Ranges: Normal: < 30 ug/mg creatinine Microalbuminuria: 30 - 300 ug/mg creatinineClinical Albuminuria: > 300 ug/mg creatinine 07/18/2025 8:10 AM EDT 07/18/2025 11:36 AM EDT us Trinidad Briceño DO LAB URINE ORDERABLES Final R esult Performing Organization Address [facility] Co de Phone Number [facility] [address] [place] [phone] * (ABNORMAL) Hepatic Function Panel (07/18/2025 8:10 AM EDT) Bilirubin, Total 1.1(H) 0.0 - 1.0 mg/dL [facility] Bilirubin, Direct 0.3 0.0 - 0.5 mg/dL [facility] Aspartate Amino Transferase 34 5 - 37 U/L [facility] Alanine Aminotransferase 31 0 - 40 U/L [facility] Total Protein 8.4(H) 6.5 - 8.0 g/dL [facility] Albumin Level 4.7 3.5 - 5.0 g/dL [facility] Alkaline Phosphatase 60 39 - 117 U/L [facility] 07/18/2025 8:10 AM EDT 07/18/2025 11:19 AM EDT us Trinidad Briceño DO LAB BLOOD ORDERABLES Final R esult Performing Organization Address [facility] de Phone Number [facility] [address] [place] [phone] * (ABNORMAL) Lipid Panel, Standard (07/18/2025 8:10 AM EDT) Triglycerides 162(H) <150 mg/dL [facility] Comment:Desirable Triglyceri de: less than 150 mg/dLBorderline High Triglyceride 150-199 mg/dLHigh Triglyceride: 200-499 mg/dLVery High Triglyceride: greater than or equal to 5OO mg/dL Cholesterol 212(H) <200 mg/dL [facility] Comment:Desirable Cholestero l: less than 200 mg/dLBorderline High Cholesterol: 200-239 mg/dLHigh Cholesterol: greater than 239 mg/dL LDL Cholesterol Calculated 140(H) <100 mg/dL [facility] Comment:Desirable LDL: less than 100 mg/dLNear Optimal/Above Optimal LDL: 110- 129 mg/dLBorderline High LDL: 130-159 mg/dLHigh LDL: 160-189 mg/dLVery High LDL: greater than or equal to 190 mg/dL HDL Cholesterol 40(L) >40 mg/dL [facility] Comment:Desirable HDL: great er than 40 mg/dL Note: This HDL assay may give artificially low results in patients with liver disease. 07/18/2025 8:10 AM EDT 07/18/2025 11:19 AM EDT us Trinidad Briceño DO LAB BLOOD ORDERABLES Final R esult [facility] [address] [place], [place] [phone] * (ABNORMAL) Basic Metabolic Panel (07/18/2025 8:10 AM EDT) Sodium 142 135 - 145 mmol/L [facility] Potassium 3.7 3.3 - 5.1 mmol/L [facility] Chloride 97 96 - 108 mmol/L [facility] Carbon Dioxide 37(H) 22 - 29 mmol/L [facility] Anion Gap 12 12 - 20 [facility] Urea Nitrogen (BUN) 13 9 - 16 mg/dL [facility] Creatinine, Serum 1.11 0.5 - 1.4 mg/dL [facility] Estimated Glomerular Filt Rate >60 [facility] Comment:Chronic Kidney Disea se: Estimated GFR < 60 mL/min/[id number] Kidney Disease: Estimated GFR < 15 mL/min/1.73m2 Glucose 159(H) 60 - 115 mg/dL [facility] Calcium 9.8 8.4 - 10.2 mg/dL [facility] 07/18/2025 8:10 AM EDT 07/18/2025 11:19 AM EDT [facility] BLOOD ORDERABLES Final R esult Performing Organization Address City/[facility]/ZIP Co de Phone Number [facility] [address] [place] [phone] * Hepatitis C Antibody with Reflex to HCV, RNA, Quantitative, Real-Time PCR (04/18/2024 8:14 AM EDT) Hepatitis C Antibody Nonreactive Nonreactive [facility] Comment:Antibodies to HCV no t detected; does not exclude early acuteHCV infection. Blood Venous blood specimen / Unknown 04/18/2024 8:14 AM EDT 04/18/2024 11:34 AM EDT [facility]idad [facility] LAB BLOOD ORDERABLES Final R esult Performing Organization Address City/[facility] Co de Phone Number [facility] [address] [place] [address] [phone] * HIV-1/2 Antigen and Antibodies, Fourth Generation, with Reflexes (04/18/2024 8:14 AM EDT) HIV AB/AG Nonreactive Nonreactive [facility] Comment:HIV-1 p24 Ag and/or HIV-1/HIV-2 Ab not detected.A test result that is nonreactive does not exclude thepossibility of exposure to or infection with HIV-1 and/orHIV-2. Nonreactive results in this assay for individualswith prior exposure to HIV-1 and/or HIV-2 may be due toantigen and antibody levels that are below the limit ofdetection of this assay.The Unomy Alinity HIV Ag/Ab Combo assay result andsupplemental assay results should be interpreted inconjunction with the patient's clinical presentation,history and other laboratory results. If the results areinconsistent with clinical evidence, additional testing issuggested to confirm the result. Blood Venous blood specimen / Unknown 04/18/2024 8:14 AM EDT 04/18/2024 11:34 AM EDT Trinidad Briceño DO LAB BLOOD ORDERABLES Final R esult [facility] [address] [place] [address] [phone] * Hm Colonoscopy (05/26/2015 8:41 AM EDT) Historical Provider HEALTH MAINTENANCE Final Result from Last 3 Months or Most Recently Relevant to Health Maintenance Insurance [facility] [place] [address] [place] [id number] Care Teams Trap Setter Relationship Specialty Start Date End Date Trinidad Briceño DO [address], [place] [phone] PCP - General Family Medicine 02/05/14 Sola Isidro PharmD [address], [place] [phone] Pharmacist Internal Medicine 08/11/23 Amber Storm Capper Machine OperatorAssociate Justice 01/25/24
--- OUTSIDE RECORDS SUMMARY | 2025-07-23 18:01 | XMS_ITS | Encounter Summary ---
Author Organization [facility], Address [address] [place] [address] Phone Care Team Providers Care Bouffant Curtain Machine Tender Name Role Phone Unavailable Primary Care Provider Unavailabl e Encounter Details Date Type Department Care Team (Late st Contact Info) Description 11/22/2023 Orders Only [facility], [address] [place] [phone] Cezar Dior PA [address] [place] [address] Chronic kidney disease, stage 2 [...] as of this encounter Plan of Treatment Not on file documented as of this encounter Visit Diagnoses Diagnosis Chronic kidney disease, stage 2 (mild) Type 2 diabetes mellitus, not otherwise specified (HCC) Essential hypertension documented in this encounter
--- OUTSIDE RECORDS SUMMARY | 2025-07-23 18:01 | XMS_ITS | Clinical Summary ---
Author Organization [facility], Address [address] [place] [address] [place] [address] Phone Care Team Providers Care Nutritional Services Director Name Role Phone Unavailable Primary Care Provider Unavailabl e Allergies No known active allergies Medications acetaminophen [...] 1 (one) time each day Active pancrelipase, Amh-Jqls-Cvsz, (Creon) 17178-65341 units capsule Take 2 capsules by mouth [...] in the morning. 3 mL 2 Active Active Problems Problem Noted Date Diagnosed [...] 12/05/2023 1:07 PM EST Plan of Treatment Health Maintenance Due Date Last Done Comments Colorectal Cancer Screening: Annual FOBT 2010 Colorectal Cancer Screening: Colonoscopy 2010 Colorectal Cancer Screening: Sigmoidoscopy 2010 Diabetes: Ophthalmology Exam 01/20/2020 Diabetes: Pedal Pulse Checked 01/20/2020 Diabetes: Sensory Foot Exam 01/20/2020 Diabetes: Visual Foot Exam 01/20/2020 Diabetes: Hemoglobin A1C 03/10/2025 025, 10/17/2024, 09/04/2023, Additional history exists Influenza Vaccine (#1) 2025 , 09/04/2023, 08/05/2022, Additional history exists Hepatitis B Vaccine Aged Out 08/31/2018, 07/25/2017, 04/17/2017, Additional history exists No longer eligible based on patient's age to complete this topic Pneumococcal Vaccine: 50+ Years Completed 05/01/2023, 07/23/2015, 06/30/2015 Pneumococcal Vaccine: Peds (0 to 5 Years) and At-Risk Patients (6 to 49 Years) Discontinued 05/01/2023, 07/23/2015, 06/30/2015 Procedures Procedure Name Priority Date/Time Associated Diagnosis Comments HEMOGLOBIN A1C Routine 04/04/2023 2:09 PM EDT Chronic kidney disease, stage 2 (mild) from Last 3 Months or Most Recently Relevant to Health Maintenance Results * (ABNORMAL) Hemoglobin A1c (04/04/2023 2:09 PM EDT) Hemoglobin A1C 7.3(H) (4.0-5.6) % [facility] Comment: MONITORING: In known diabetic patients, hemoglobin A1c targets should be discussed with health care provider. DIAGNOSTIC USE: The [place] Diabetes Association (ADA) and the World Health [...] Supplement 1 Testing performed or reported by [facility], a Service of [facility], [address] [place] [address] Morales Mohamud MD, Derrick Boat Leverman [facility]# [id number] Blood specimen (specimen) Venous blood / Unknown 04/04/2023 2:09 PM EDT 04/04/2023 2:12 PM EDT Cezar CINTRON LAB BLOOD ORDERABLES Final Re sult [facility] from Last 3 Months or Most Recently Relevant to Health Maintenance Insurance Medicaid [place]
--- OUTSIDE RECORDS SUMMARY | 2025-07-23 18:01 | XMS_ITS | Encounter Summary ---
Author Organization [employer] Address [address] [facility] 7t [place] [address] Care Team Providers Care Layboy Operator Name Role Phone Trinidad Briceño DO Primary Care Provider [phone] Sola Isidro PharmD Unavailable [phone] Reason for Visit * Reason Comments Med Refill Encounter Details Date Type Department Care Team ([facility] Contact Info) Description 09/19/2024 Refill [facility] MEDICINE [address] [place] [address] Trinidad Bricñeo DO [address] [place] [address] Hypertension, unspecified type Social History Tobacco Use [...] Description 08/15/2025 10:30 AM EDT Medication Management [facility] MEDICINE [address] [place] [address] Sola Isidro PharmD [address] [place] [address] documented as of this encounter Goals Goal Patient Goal Type Associated Problems Recent Progress Patient-Stated? Author Hemoglobin A1c < 7 Result Component 7.2( 5 10:15 AM EDT) No Velasquez York PharmGiselle Record your blood [...] documented as of this encounter Care Teams Layboy Operator Relationship Specialty Start Date End Date Trinidad Briceño DO [address] [place] [address] PCP - General Family Medicine 02/05/14 Sola Isidor PharmD [address] [place], [place] [phone] Pharmacist Internal Medicine 08/11/23 Amber Storm Java Solutions ArchitectBar Steward 01/25/24 documented as of this encounter
--- OUTSIDE RECORDS SUMMARY | 2025-07-23 18:01 | XMS_ITS | Encounter Summary ---
Author Organization [employer] Address [address] [facility] 7t [place] [address] Care Team Providers Care Home Child Care Provider Name Role Phone LiliTrinidad phelps Primary Care Provider Sola Isidro PharmD Unavailable [phone] Encounter Details Date Type Department Care Team ([facility] Contact Info) Description 07/18/2025 Results Follow-Up [facility] MEDICINE [address] [place] [address] PuiaChadSola, PharmD [address] [place] [address] Hepatic Function Panel, Basic Metabolic Panel, Lipid Panel, Standard, Additional followed-up results: 2 Social History Tobacco Use Types Packs/Day Years [...] Description 08/15/2025 10:30 AM EDT Medication Management [facility] MEDICINE [address] [place] [address] Sola Isidro PharmD [address] [place] [address] documented as of this encounter Goals Goal [...] documented as of this encounter Care Teams Home Child Care Provider Relationship Specialty Start Date End Date Trinidad Briceño DO [address] [place], [place] [phone] PCP - General Family Medicine 02/05/14 Sola Isidro PharmD [address] [place] [address] Pharmacist Internal Medicine 08/11/23 Amber Storm QuahoggerManager Cath Lab 01/25/24 documented as of this encounter
--- OUTSIDE RECORDS SUMMARY | 2025-07-23 18:01 | XMS_ITS | Encounter Summary ---
Author Organization [employer] Address [address] [facility] 7t [place] [address] Care Team Providers Care Leather Polisher Name Role Phone LiliTrinidad phelps Primary Care Provider Sola Isidro PharmD Unavailable [phone] Encounter Details Date Type Department Care Team (Latest Contact Info) Description 07/22/2025 Travel Social History Tobacco Use Types Packs/Day [...] Upcoming Encounters Date Type Department Care Team ([facility] st Contact Info) Description 08/15/2025 10:30 AM EDT Medication Management [facility] MEDICINE [address] [place] [phone] Sola Isidro PharmD [address] [place] [address] documented as of this encounter Goals Goal [...] documented as of this encounter Care Teams Leather Polisher Relationship Specialty Start Date End Date Trinidad Briceño DO [address] [place] [address] PCP - General Family Medicine 02/05/14 Sola Isidro, PharmD [address] [place] [phone] Pharmacist Internal Medicine 08/11/23 Amber Storm Care Program ResidentVenture Capitalist 01/25/24 documented as of this encounter
--- OUTSIDE RECORDS SUMMARY | 2025-07-23 18:01 | XMS_ITS | Encounter Summary ---
Author Organization [employer] Address [address] [facility] 7t [place] [address] Care Team Providers Care Entry Level Manager Name Role Phone LiliTrinidad phelps Primary Care Provider oSla Isidro PharmD Unavailable [phone] Encounter Details Date Type Department Care Team (Latest Contact Info) Description 07/23/2025 Travel Social History Tobacco Use Types Packs/Day [...] AM EDT documented as of this encounter Functional Status * Over the [...] of Assessment Author 12 07/23/2025 10:13 AM RAFALT Sydney Escalante [place] * How difficult have [...] co ntrol worrying 2 07/23/2025 10:14 AM RAFALT Julio Escalante M A Worrying too much about diff erent things 2 07/23/2025 10:14 AM RAFALT Julio Escalante M A Trouble relaxing 2 07/23/2025 10:14 AM EDT Julio Escalante MA Being so restless that it is hard to sit still 2 07/23/2025 10:14 AM RAFALT Julio Escalante M A Becoming easily annoyed or irritable 3 07/01 10:14 AM RAFALT Julio Escalante [place] Feeling afraid as if somethi ng awful might happen 2 07/23/2025 10:14 AM Julio Juarez M A JAC-7 Total Score 15 07/23/2025 10:14 AM Julio Juarez [place] documented as of this encounter Plan of Treatment Upcoming Encounters Date Type Department Care Team (Late st Contact Info) Description 08/15/2025 10:30 AM EDT Medication Management [facility] MEDICINE [address] [place] [address] Sola Isidro PharmD [address] [place] [address] documented as of this encounter Goals Goal [...] documented as of this encounter Care Teams Entry Level Manager Relationship Specialty Start Date End Date Trinidad Briceño DO [address] [place] [address] PCP - General Family Medicine 02/05/14 Sola Isidro PharmD [address] [place] [phone] Pharmacist Internal Medicine 08/11/23 Amber Storm Pearl Glue DrierIt Senior Analyst 01/25/24 documented as of this encounter
--- OUTSIDE RECORDS SUMMARY | 2025-07-23 18:01 | XMS_ITS | Encounter Summary ---
Author Organization [facility], Address [address] [place] [address] Phone Care Team Providers Care Network Contractor Name Role Phone Unavailable Primary Care Provider Unavailabl e Encounter Details Date Type Department Care Team (Late st Contact Info) Description 07/08/2024 Orders Only [facility], [address] [place] [address] Cezar Dior PA [address] [place] [address] Chronic kidney disease, stage 2 [...]
--- OUTSIDE RECORDS SUMMARY | 2025-07-23 18:01 | XMS_ITS | Encounter Summary ---
Author Organization [employer] Address [address] [facility] 7t [place] [address] Care Team Providers Care Fan Blade Aligner Name Role Phone NavarroTrinidad Primary Care Provider Sola Isidro PharmD Unavailable [phone] Encounter Details Date Type Department Care Team ([facility] Contact Info) Description 02/06/2024 Orders Only [facility] MEDICINE [address] [place] [address] ProviderKathleen MD Social History Tobacco Use Types [...] Description 08/15/2025 10:30 AM EDT Medication Management [facility] MEDICINE [address] [place], [place] [phone] Sola Isidro PharmD [address] [place], [place] [phone] documented as of this encounter Goals Goal Patient Goal Type Associated Problems Recent Progress Patient-Stated? Author Hemoglobin A1c < 7 Result Component 7.2( 5 10:15 AM EDT) No Velasquez York PharmD [...] documented as of this encounter Care Teams Fan Blade Aligner Relationship Specialty Start Date End Date Trinidad Briceño DO [address] [place], [place] [phone] PCP - General Family Medicine 02/05/14 Sola Isidro, Rowdy [address] [place] [address] [place] [phone] Pharmacist Internal Medicine 08/11/23 Amber Storm Shearing Machine FeederEnvelope Sealing Machine Operator 01/25/24 documented as of this encounter
--- OUTSIDE RECORDS SUMMARY | 2025-07-23 18:01 | XMS_ITS | Encounter Summary ---
Author Organization [employer] Address [address] [facility] 7t [place] [address] Care Team Providers Care Civil Design Specialist Name Role Phone Trinidad Briceño DO Primary Care Provider Sola Isidro PharmD Unavailable [phone] Encounter Details Date Type Department Care Team ([facility] Contact Info) Description 07/18/2025 Orders Only [facility] MEDICINE [address] [place] [address] Trinidad Briceño DO [address] [place] [address] Social History Tobacco Use Types Packs/Day Years [...] Description 08/15/2025 10:30 AM EDT Medication Management [facility] MEDICINE [address] [place], [place] [phone] Sola Isidro PharmD [address] [place] [address] documented as of this encounter Goals Goal Patient Goal Type Associated Problems Recent Progress Patient-Stated? Author Hemoglobin A1c < 7 Result Component 7.2( 10:15 AM EDT) No Velasquez York PharmGiselle Record your blood sugar as directed Result Component No Sola Isidro PharmGiselle Note: Use CGM, ensuring sensor is scanned at least once every 8 hours to capture 24H data. Check BG manually, as directed. documented as of this encounter Procedures Procedure Name Priority Date/Time Associated Diagnosis Comments PSA, TOTAL WITH REFLEX TO PSA, FREE Routine 07/18/2025 8:10 AM EDT ALBUMIN, RANDOM URINE W/CREATININE Routine 07/18/2025 8:10 AM EDT HEPATIC FUNCTION PANEL Routine 07/18/2025 8:10 AM EDT LIPID PANEL, STANDARD Routine 07/18/2025 8:10 AM EDT BASIC METABOLIC PANEL Routine 07/18/2025 8:10 AM EDT documented in this encounter Results * (ABNORMAL) Albumin, Random Urine W/Creatinine (07/18/2025 8:10 AM EDT) Creatinine, Urine 125.67 mg/dL [facility] Microalbumin Urine 48.0 mg/L [facility] Microalbum Creatinine Ratio Ur 38.1(H) <30 ug/mg cr [facility] Comment:Albumin/Creatinine R atio Reference Ranges: Normal: < 30 ug/mg creatinine Microalbuminuria: 30 - 300 ug/mg creatinineClinical Albuminuria: > 300 ug/mg creatinine 07/18/2025 8:10 AM EDT 07/18/2025 11:36 AM EDT us Trinidad Briceño DO LAB URINE ORDERABLES Final R esult [facility] [address] [place] [phone] * PSA, Total With Reflex to PSA, Free (07/18/2025 8:10 AM EDT) PSA,Total (Free>4and<10) 0.83 0.00 - 4.00 ng/mL [facility] Comment:A Free PSA was not p [...] AM EDT 07/18/2025 11:19 AM EDT Trinidad Navarro LAB BLOOD ORDERABLES Final R esult Performing Organization Address City/[facility] Co de Phone Number [facility] [address] [place] [phone] * (ABNORMAL) Lipid Panel, Standard (07/18/2025 8:10 AM EDT) Triglycerides 162(H) <150 mg/dL [facility] Comment:Desirable Triglyceri de: less than 150 mg/dLBorderline High Triglyceride 150-199 mg/dLHigh Triglyceride: 200-499 mg/dLVery High Triglyceride: greater than or equal to 5OO mg/dL Cholesterol 212(H) <200 mg/dL [facility] Comment:Desirable Cholestero l: less than 200 mg/dLBorderline High Cholesterol: 200-239 mg/dLHigh Cholesterol: greater than 239 mg/dL LDL Cholesterol Calculated 140(H) <100 mg/dL [facility] Comment:Desirable LDL: less than 100 mg/dLNear Optimal/Above Optimal LDL: 110- 129 mg/dLBorderline High LDL: 130-159 mg/dLHigh LDL: 160-189 mg/dLVery High LDL: greater than or equal to 190 mg/dL HDL Cholesterol 40(L) >40 mg/dL [facility] Comment:Desirable HDL: great er than 40 mg/dL Note: This HDL assay may give artificially low results in patients with liver disease. 07/18/2025 8:10 AM EDT 07/18/2025 11:19 AM EDT Trinidad Briceño DO LAB BLOOD ORDERABLES Final R esult Performing Organization Address [facility]/ZIP Co de Phone Number [facility] [address] [place] [phone] * (ABNORMAL) Basic Metabolic Panel (07/18/2025 8:10 AM EDT) Pathologist [facility] [place] Sodium 142 135 - 145 mmol/L [facility] Potassium 3.7 3.3 - 5.1 mmol/L [facility] Chloride 97 96 - 108 mmol/L [facility] Carbon Dioxide 37(H) 22 - 29 mmol/L [facility] Anion Gap 12 12 - 20 [facility] Urea Nitrogen (BUN) 13 9 - 16 mg/dL [facility] Creatinine, Serum 1.11 0.5 - 1.4 mg/dL [facility] Estimated Glomerular Filt Rate >60 [facility] Comment:Chronic Kidney Disea se: Estimated GFR < 60 mL/min/1.75e2Tluico Kidney Disease: Estimated GFR < 15 mL/min/1.73m2 Glucose 159(H) 60 - 115 mg/dL [facility] Calcium 9.8 8.4 - 10.2 mg/dL [facility] 07/18/2025 8:10 AM EDT 07/18/2025 11:19 AM EDT us Trinidad Briceño DO LAB BLOOD ORDERABLES Final R esult [facility] [address] [place] [phone] * (ABNORMAL) Hepatic Function Panel (07/18/2025 8:10 AM EDT) Pathologist [facility] [place] Bilirubin, Total 1.1(H) 0.0 - 1.0 mg/dL [facility] Bilirubin, Direct 0.3 0.0 - 0.5 mg/dL [facility] Aspartate Amino Transferase 34 5 - 37 U/L [facility] Alanine Aminotransferase 31 0 - 40 U/L [facility] Total Protein 8.4(H) 6.5 - 8.0 g/dL [facility] Albumin Level 4.7 3.5 - 5.0 g/dL [facility] Alkaline Phosphatase 60 39 - 117 U/L [facility] 07/18/2025 8:10 AM EDT 07/18/2025 11:19 AM EDT us Trinidad Briceño DO LAB BLOOD ORDERABLES Final R esult [facility] [address] [place] [phone] documented in this encounter Visit Diagnoses Not on filedocumented in this encounter Additional Health Concerns Assessment Noted Time PHQ-9 Depression Total Score: 6 06/11/20 24 9:03 AM EDT documented as of this encounter Care Teams Civil Design Specialist Relationship Specialty Start Date End Date Trinidad Briceño DO [address] [place] [address] PCP - General Family Medicine 02/05/14 Sola Isidro PharmD [address] [place] [address] Pharmacist Internal Medicine 08/11/23 Amber Storm HostPuppy Sitter 01/25/24 documented as of this encounter
--- OUTSIDE RECORDS SUMMARY | 2025-07-23 18:01 | XMS_ITS | Encounter Summary ---
Author Organization [facility] Address [address] [place] [address] Phone Care Team Providers Care Pin Puller Name Role Phone Unavailable Primary Care Provider Unavailabl e Encounter Details Date Type Department Care Team (Late st Contact Info) Description 12/04/2023 Documentation Only [facility], [address] [place] [address] Luz Elena Meng [address] [place] [address] Social History Tobacco Use Types [...]
--- OUTSIDE RECORDS SUMMARY | 2025-07-23 18:01 | XMS_ITS | Encounter Summary ---
Author Organization [employer] Address [address] [facility] 7t [place] [address] Care Team Providers Care Teacher Of The Deaf Name Role Phone LiliTrinidad phelps Primary Care Provider [phone] Sola Isidro PharmD Unavailable [phone] Reason for Referral * Consultation (Routine) - Closed Specialty Diagnoses / Procedures Referred By Davide t Referred To Contact Podiatry Diagnoses Onychomycosis of multiple toenails with type 2 diabetes mellitus (CMS/HCC) ([facility]) Tonie Zaragoza MD [address] [place] [address] Phone: tel: fax: Blade Agee DPM [address] [facility] [address] [place] [address] Phone: tel: fax: Referral ID Status Reason Start Date Expiration Date V isits Requested Visits Authorized [id number] Closed Specialty Services Required 11/01/2024 11/01/2025 6 6 Encounter Details Date Type Department Care Team (Late st Contact Info) Description 11/01/2024 Orders Only [facility] MEDICINE [address] [place] [address] Tonie Zaragoza MD [address] [place], [place] Onychomycosis of multiple toenails with type 2 diabetes mellitus (CMS/HCC) ([facility]) (Primary Dx) Social History Tobacco Use Types [...] your housing situation today? I have daylin sebastian 08/18/[address] you li [...] Description 08/15/2025 10:30 AM EDT Medication Management [facility] MEDICINE [address] [place], [place] [phone] Sola Isidro, PharmD [address] [place] [address] Scheduled Referrals Name Type Priority Associated Diagnoses Orde r Schedule Referral to Podiatry Outpatient Referral Routine Onychomycosis of multiple toenails with type 2 diabetes mellitus ([facility]) ([facility]) Expected: 11/01/2024 (Approximate), Expires: 11/01/2025 documented as [...] multiple toenails with type 2 diabetes mellitus ([facility]) ([facility])- Primary documented in this encounter Additional Health Concerns Assessment Noted Time PHQ-9 Depression Total Score: 6 06/11/20 24 9:03 AM EDT documented as of this encounter Care Teams Teacher Of The Deaf Relationship Specialty Start Date End Date Trinidad Briceño DO [address] [place] [address] PCP - General Family Medicine 02/05/14 Sola Isidro PharmD [address] [place] [address] Pharmacist Internal Medicine 08/11/23 Amber Storm Visor InstallerGold Leaf Printer 01/25/24 documented as of this encounter
--- OUTSIDE RECORDS SUMMARY | 2025-07-23 18:01 | XMS_ITS | Encounter Summary ---
Author Organization [employer] Address [address] [facility] 7t [place] [address] Care Team Providers Care Gas Meter Reader Name Role Phone Trinidad Briceño DO Primary Care Provider Sola Isidro PharmD Unavailable [phone] Reason for Visit * Reason Onset Date Comments Chart Prep 07/22/2025 Encounter Details Date Type Department Care Team ([facility] Contact Info) Description 07/22/2025 Telephone [facility] MEDICINE [address] [place] [address] Trinidad Briceño DO [address] [place] [address] Chart Prep Social History Tobacco Use Types Packs/Day Years [...] encounter Miscellaneous Notes * Telephone Encounter - Isela Monreal [place] - 07/22/2025 9:21 AM EDT Chart Prep Labs: done Images: not applicable Referrals: not applicable Vaccines due: Flu and Hep A Screenings: colonoscopy and foot exam Overdue care gaps: A1c, Glucose, PHQ-9, and JAC-7 documented in this encounter Plan of Treatment Upcoming Encounters Date Type Department Care Team (Late st Contact Info) Description 08/15/2025 10:30 AM EDT Medication Management [facility] MEDICINE [address] [place] [address] Sola Isidro PharmD [address] [place] [address] documented as of this encounter Goals Goal [...] documented as of this encounter Care Teams Gas Meter Reader Relationship Specialty Start Date End Date Trinidad Briceño DO [address] [place] [address] PCP - General Family Medicine 02/05/14 Sola Isidro PharmD [address] [place] [address] Pharmacist Internal Medicine 08/11/23 Amber Storm Neurology NurseCore Carrier 01/25/24 documented as of this encounter
--- OUTSIDE RECORDS SUMMARY | 2025-07-23 18:01 | XMS_ITS | Encounter Summary ---
Author Organization [employer] Address [address] [facility] [address] 7t [place] [address] Care Team Providers Care Business Development Coordinator Name Role Phone NavarroTrinidad Primary Care Provider [phone] Sola Isidro PharmD Unavailable [phone] Encounter Details Date Type Department Care Team ([facility] Contact Info) Description 08/24/2023 Telephone [facility] [address] [place] [address] Shyanne Moseley, OD [address] [place] [address] Social History Tobacco Use Types Packs/Day Years [...] Description 08/15/2025 10:30 AM EDT Medication Management [facility] MEDICINE [address] [place], [place] [phone] Sola Isidro PharmD [address] [place] [address] documented as of this encounter Goals Goal [...] documented as of this encounter Care Teams Business Development Coordinator Relationship Specialty Start Date End Date Trinidad Briceño DO [address] [place], [place] [phone] PCP - General Family Medicine 02/05/14 Sola Isidro PharmD [address] [place], [place] [phone] Pharmacist Internal Medicine 08/11/23 Amber Storm Airport ClerkCoutierier 01/25/24 documented as of this encounter
--- OUTSIDE RECORDS SUMMARY | 2025-07-23 18:01 | XMS_ITS | Encounter Summary ---
Author Organization [employer] Address [address] [facility] 7t [place] [address] Care Team Providers Care Glazier Metal Furniture Name Role Phone Trinidad Briceño DO Primary Care Provider Velasquez York PharmD Unavailable Unavail able Sola Isidro PharmD Unavailable Encounter Details Date Type Department Care Team ([facility] Contact Info) Description 04/12/2023 Telephone [facility] MED[facility]INE [address] [place] [address] Trinidad Briceño DO 230 [place] [address] Social History Tobacco Use Types Packs/Day Years [...] Description 08/15/2025 10:30 AM EDT Medication Management [facility] MED[facility] [address] [place] [address] Sola Isidro PharmD 230 [place] [address] documented as of this encounter Goals Goal Patient Goal Type Associated Problems Recent Progress Patient-Stated? Author Hemoglobin A1c < 7 Result Component 7.2(07/23/2025 10:15 AM EDT) No Velasquez York, PharmD documented as of this encounter Visit Diagnoses Not on filedocumented in this encounter Additional Health Concerns Assessment Noted Time PHQ-9 Depression Total Score: 0 11/18/19 23 12:28 PM EST documented as of this encounter Care Teams Glazier Metal Furniture Relationship Specialty Start Date End Date Trinidad Briceño DO [address] [place] [address] PCP - General Family Medicine 02/05/14 Velasquez York, PharmD [address] [place] [address] Pharmacist Internal Medicine 12/28/22 08/10/23 Sola Isidro PharmD [address] [place] [address] Pharmacist Internal Medicine 08/11/23 Amber Storm Senior Sales EngineerMason Tender Restoration Labor 01/25/24 documented as of this encounter
--- OUTSIDE RECORDS SUMMARY | 2025-07-23 18:02 | XMS_ITS | Encounter Summary ---
Author Organization [facility] Address [address] [place] [address] Phone Care Team Providers Care Sericulture Teacher Name Role Phone Unavailable Primary Care Provider Unavailabl e Encounter Details Date Type Department Care Team (Late st Contact Info) Description 01/01/2025 Documentation Only [facility] [place], [address] [place] [address] Gloria CarrilloDEERING, [place] [address] [place] [address] Social History Tobacco Use Types [...]
--- OUTSIDE RECORDS SUMMARY | 2025-07-23 18:02 | XMS_ITS | Encounter Summary ---
Author Organization [facility] Address [address] [place] [address] Phone Care Team Providers Care Lead Web Application Developer Name Role Phone Unavailable Primary Care Provider Unavailabl e Encounter Details Date Type Department Care Team (Late st Contact Info) Description 11/18/2021 Documentation Only [facility] [place], [address] [place] [address] Reji Almeida MD [address] [place] [place] [address] Social History Tobacco Use Types [...]
--- OUTSIDE RECORDS SUMMARY | 2025-07-23 18:02 | XMS_ITS | Clinical Summary ---
Author Organization [facility] Address [address] [place] [address] Phone Care Team Providers Care Patch Driller Name Role Phone Physician, Pcp Unknown Primary [...] 1 (one) time each day. 50 g 5 026 Active Active Problems Problem Noted Date Diagnosed Date Alcohol use disorder 11/11/2024 Anxiety disorder 11/11/2024 BPH (benign prostatic hyperplasia) 11/11/2024 Chorioretinal scar, right eye 11/11/2024 Chronic GERD 11/11/2024 Chronic low back pain 11/11/2024 CKD (chronic kidney disease) 11/11/2024 Early stage nonexudative age -related macular degeneration of both eyes 11/11/2024 Immunizations Name Administration Dates Next Due Moderna [...] of 2 - Risk 2-dose series) 1980 Depression Screening 10/30/2024 Colorectal Cancer Screening: Colonoscopy 11/08/2024 Social Influencers of Health Screening 11/08/2024 Diabetes: Annual Urine Albumin-Creatinine Ratio (uACR) 11/28/2024 Hypertension/CHF/CAD Annual BMP Blood Test 11/28/2024 Diabetes: Blood Sugar Control Test (HGBA1C) 04/17/2025 10/17/2024, 04/04/2023 COVID-19 Vaccine (8 - Pfizer risk season) 2025 07/18/2024, 09/04/2023, 08/05/2022, Additional history exists Influenza Vaccine (#1) 2025 , 09/04/2023, 08/05/2022, Additional history exists DTaP,Tdap,and Td Vaccines (2 - Td or Tdap) 07/23/2025 07/23/2015 Cholesterol Screening (Lipid Panel) 04/18/2029 04/18/2024 Hepatitis B Vaccines Completed 08/31/2018, 07/25/2017, 04/17/2017, Additional history exists Zoster Vaccines Completed 08/26/2022, 03/24/2022 Pneumococcal Vaccine: 50+ Years Completed 05/01/2023, 07/23/2015 RSV Immunization Adult Patients Completed 11/08/2023 HIV Screening Completed 04/18/2024 Hepatitis C Screening Completed 04/18/2024 HIB Vaccines Aged Out No longer eligi [...] to complete this topic Insurance MEDICAID - [place] Care Teams Patch Driller Relationship Specialty Start Date End Date Physician, Pcp Unknown PCP - General 11/08/24
== END 2025-07-23 16:02 | disposition home or self-care (01) ==
LOC: HO.HHCLNP 16:01
PROVIDERS: Visit Provider Family Medicine
DX: N39.0 Urinary tract infection, site not specified (principal)
CPT/HCPCS: 87086

== ENCOUNTER 2025-09-12 11:47 | Outpatient (REF) | payer MEDICAID, SELFPAY ==
[2025-09-12 14:10] LABS: Anion Gap 11 (12-20); Blood Urea Nitrogen 15 mg/dL (9-16); Calcium 9.7 mg/dL (8.4-10.2); Carbon Dioxide 30 mmol/L (22-29); Chloride 106 mmol/L (96-108); Estimated Glomerular Filt Rate > 60; Potassium 3.5 mmol/L (3.3-5.1); Sodium 143 mmol/L (135-145)
== END 2025-09-12 11:48 | disposition home or self-care (01) ==
LOC: HO.HHCL 11:47
PROVIDERS: PCP Family Medicine; Visit Provider Family Medicine
DX: I12.9 Hypertensive chronic kidney disease with stage 1 through stage 4 chronic kidney disease, or unspecified chronic kidney disease (principal); E11.22 Type 2 diabetes mellitus with diabetic chronic kidney disease; N18.30 Chronic kidney disease, stage 3 unspecified; Z79.4 Long term (current) use of insulin
CPT/HCPCS: 36415; 80048

== ENCOUNTER 2025-09-20 08:19 | Outpatient (REF) | payer MEDICAID, SELFPAY ==
--- NOTE | ~2025-09-20 | CT_ITS ---
CLINICAL HISTORY: Z87.891 - Personal history of nicotine dependence CT lung cancer screening Technique: Axial CT images of the chest using low-dose technique. Effective radiation dose: DLP 70.5 mGy.cm, CTDIvol 1.90 mGy Referring provider counseled the patient on shared decision-making for LDCT screening. Additional counseling was provided on smoking cessation. Comparison: 11/10/2023 Findings: Lung nodules RUL: New ground-glass opacity measuring up to 19 mm transverse dimension, with small satellite ground-glass opacity posterior to this measuring up to 6 mm AP dimension (both on 5; 205). RML: Stable 4 mm subpleural nodule (5; 360). RLL: None GARRETT: Stable 3 mm nodule (5; 280). New subsolid opacity measuring up to 8 mm oblique AP dimension (5; 304). Lingula: None LLL: None COPD: None Pleural spaces: Normal Coronary artery calcifications: Mild Limited upper abdomen: Small hiatal hernia. Other: Unremarkable Impression: LungRADS 4A - Suspicious: Follow-up low dose Chest CT recommended in 3 months for evaluation of the new subsolid opacity within left upper lobe measuring up to 8 mm, and right upper lobe ground-glass opacity measuring up to 19 mm. ##L4A## This document has been electronically signed by: Marcio Morris MD on 09/22/2025 16:11:31
--- OUTSIDE RECORDS SUMMARY | 2025-09-20 08:21 | XMS_ITS | Encounter Summary ---
Author Organization [employer] Address [address] [facility] 7t [place] [address] Care Team Providers Care Reed Maker Name Role Phone NavarroTrinidad Primary Care Provider +1- [phone] Sola Isidro PharmD Unavailable [phone] Encounter Details Date Type Department Care Team ([facility] Contact Info) Description 02/06/2024 Orders Only [facility] [address] [place] [address] ProviderKathleen MD Social History Tobacco Use Types [...] Care Team (Late st Contact Info) Description 11/03/2025 10:30 AM EST Medication Management [facility] [address] [place] [address] Sola Isidro PharmD 230 [place] [address] 12/31/2025 10:30 AM EST Office Visit [facility] OPTOMETRY [address] [place] [address] Pradip, Shyanne, OD 230 [place] [address] documented as of this encounter Goals Goal [...] documented as of this encounter Care Teams Reed Maker Relationship Specialty Start Date End Date Trinidad Briceño DO [address] [place] [address] PCP - General Family Medicine 02/05/14 Sola Isidro PharmD [address] [place] [address] Pharmacist Internal Medicine 08/11/23 Amber Storm Supervisor Sterile ProcessingLeadership Recruiter 01/25/24 08/27/25 Delfina Mcmillan Supervisor Sterile ProcessingLeadership Recruiter 08/28/25 documented as of this encounter
--- OUTSIDE RECORDS SUMMARY | 2025-09-20 08:21 | XMS_ITS | Encounter Summary ---
Author Organization [employer] Address [address] [facility] 7t [place] [address] Care Team Providers Care Belt Builder Helper Name Role Phone Triindad Briceño DO Primary Care Provider [phone] Sola Isidro PharmD Unavailable [phone] Reason for Visit * Reason Comments Med Refill Encounter Details Date Type Department Care Team ([facility] Contact Info) Description 09/19/2024 Refill [facility]INE [address] [place] [address] Trinidad Briceño DO 230 [place] [address] Hypertension, unspecified type Social History Tobacco Use [...] Description 11/03/2025 10:30 AM EST Medication Management [facility]INE [address] [place] [address] Sola Isidro PharmD 230 [place] [address] 12/31/2025 10:30 AM EST Office Visit [facility] OPTOMETRY [address] [place] [address] Pradip, Shyanne, OD [address] [place] [address] documented as of this encounter Goals Goal [...] documented as of this encounter Care Teams Belt Builder Helper Relationship Specialty Start Date End Date Trinidad Briceño DO [address] [place] [address] PCP - General Family Medicine 02/05/14 Sola Isidro PharmD 230 [place] [address] Pharmacist Internal Medicine 08/11/23 Amber Storm Timber SprinklerSurgical Garment Inspector 01/25/24 08/27/25 Delfina Mcmillan Timber SprinklerSurgical Garment Inspector 08/28/25 documented as of this encounter
--- OUTSIDE RECORDS SUMMARY | 2025-09-20 08:21 | XMS_ITS | Encounter Summary ---
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) Tonie Zaragoza MD [address] [place] [address] Phone: tel: fax: Blade Agee DPM [address] [facility] [address] [place] [address] Phone: tel: fax: Referral ID Status Reason Start Date Expiration Date V isits Requested Visits Authorized [id number] Closed Specialty Services Required 11/01/2024 11/01/2025 6 6 Encounter Details Date Type Department Care Team (Late st Contact Info) Description 11/01/2024 Orders Only [facility] [address] [place] [address] Tonie Zaragoza MD [address] [place], [place] [phone] Onychomycosis of multiple toenails with type 2 diabetes mellitus (CMS/HCC) (CMS/HCC) (Primary Dx) Social History Tobacco Use Types [...] Management [facility] [address] [place] [address] Sola Isidro, PharmD [address] [place] [address] 12/31/2025 10:30 AM EST Office Visit [facility] OPTOMETRY [address] [place], [place] [phone] Shyanne Moseley, OD 230 [place] [address] Scheduled Referrals Name Type Priority Associated Diagnoses Orde r Schedule Referral to Podiatry Outpatient Referral Routine Onychomycosis of multiple toenails with type 2 diabetes mellitus (CMS/HCC) ([facility]) Expected: 11/01/2024 (Approximate), Expires: 11/01/2025 documented as [...] multiple toenails with type 2 diabetes mellitus (HCC)- Primary documented in this encounter Additional Health Concerns Assessment Noted Time PHQ-9 Depression Total Score: 6 06/11/20 24 9:03 AM EDT documented as of this encounter Care Teams Food Preparer Relationship Specialty Start Date End Date Trinidad Briceño DO [address] [place] [address] PCP - General Family Medicine 02/05/14 Sola Isidro, PharmD [address] [place] [address] Pharmacist Internal Medicine 08/11/23 Amber Storm Narrow Gauge OperatorMedical Assistant Float 01/25/24 08/27/25 Delfina Mcmillan Narrow Gauge OperatorMedical Assistant Float 08/28/25 documented as of this encounter
--- OUTSIDE RECORDS SUMMARY | 2025-09-20 08:21 | XMS_ITS | Encounter Summary ---
Author Organization [facility], Address [address] [place] [address] Phone Care Team Providers Care Retail Wireless Sales Consultant Name Role Phone Unavailable Primary Care Provider Unavailabl e Encounter Details Date Type Department Care Team (Late st Contact Info) Description 07/08/2024 Orders Only [facility], [address] [place] [address] Cezar Dior PA [address] [place] [address] Chronic kidney disease, stage 2 [...]
--- OUTSIDE RECORDS SUMMARY | 2025-09-20 08:21 | XMS_ITS | Encounter Summary ---
Author Organization [facility] Address [address] [place] [address] Phone Care Team Providers Care Hand Candy Molder Name Role Phone Unavailable Primary Care Provider Unavailabl e Encounter Details Date Type Department Care Team (Late st Contact Info) Description 12/04/2023 Documentation Only [facility] [place], [address] [place] [address] Luz Elena Meng [address] [place] [address] Social History Tobacco Use Types Packs/Day Years Used Date Smoking Tobacco: Former Comments:Smoking History Inf o:Unknown Sex and Gender Information Value Date Recorded Sex Assigned at Not on file Legal Sex Male 4:30 PM EST Gender Identity Not on file Sexual Orientation Not on file documented as of this encounter Functional Status * Question Answer Date of Assessment Author 12/05/2023 1:07 PM Cezar Smith PA Height 68 12/05/2023 1:07 PM EST Cezar Doyle PA Weight 2768 12/05/2023 1:07 PM EST Cezar Doyle PA * BMI (Calculated) Answer Date of Assessment Author 26.3 12/05/2023 1:07 PM Cezar Shafer PA * BP Location Answer Date of Assessment Author Right upper arm 12/05/2023 1:07 PM Cezar Shafer PA * Question Answer Date of Assessment Author BP 9862 12/05/2023 1:07 PM Cezar Smith PA Height 68 12/05/2023 1:07 PM EST Cezar Doyle PA Weight 2768 12/05/2023 1:07 PM Cezar Smith PA * BMI (Calculated) Answer Date of Assessment Author 26.3 12/05/2023 1:07 PM Cezar Shafer PA * BP Location Answer Date of Assessment Author Right upper arm 12/05/2023 1:07 PM Cezar Shafer PA documented as of this encounter Plan of Treatment Not on file documented as of this encounter Visit Diagnoses Not on filedocumented in this encounter
--- OUTSIDE RECORDS SUMMARY | 2025-09-20 08:21 | XMS_ITS | Encounter Summary ---
Author Organization [employer] Address [address] [facility] [address] 7[address] [place] [address] Care Team Providers Care Museum Or Zoo Director Name Role Phone NavarroTrinidad Primary Care Provider [phone]- [phone] Sola Isidro PharmD Unavailable [phone] Encounter Details Date Type Department Care Team ([facility] Contact Info) Description 08/24/2023 Telephone [facility] OPTOMETRY [address] [place] [address] Shyanne Moseley, OD [address] [place] [address] Social History Tobacco Use Types Packs/Day Years [...] Description 11/03/2025 10:30 AM EST Medication Management [facility] [address] [place] [address] Sola Isidro PharmD 230 [place] [address] 12/31/2025 10:30 AM EST Office Visit [facility] OPTOMETRY [address] [place] [address] Pradip, Shyanne, OD [address] [place] [address] documented as of this encounter Goals Goal [...] documented as of this encounter Care Teams Museum Or Zoo Director Relationship Specialty Start Date End Date Trinidad Briceño DO 230 [place] [address] PCP - General Family Medicine 02/05/14 Sola Isidro, KamillaD [address] [place] [address] Pharmacist Internal Medicine 08/11/23 Amber Storm Human Resources AdministratorAssistant Statistician 01/25/24 08/27/25 Delfina Mcmillan Human Resources AdministratorAssistant Statistician 08/28/25 documented as of this encounter
--- OUTSIDE RECORDS SUMMARY | 2025-09-20 08:21 | XMS_ITS | Encounter Summary ---
Author Organization [facility], Address [address] [place] [address] Phone Care Team Providers Care Hand Candy Dipper Name Role Phone Unavailable Primary Care Provider Unavailabl e Encounter Details Date Type Department Care Team (Late st Contact Info) Description 11/22/2023 Orders Only [facility], [address] [place] [address] Cezar Dior PA [address] [place] [address] Chronic kidney disease, stage 2 [...]
--- OUTSIDE RECORDS SUMMARY | 2025-09-20 08:21 | XMS_ITS | Clinical Summary ---
Author Organization [facility] [place], Address [address] [place] [address] [place] [address] Phone Care Team Providers Care Patternmaker Bench Name Role Phone Unavailable Primary Care Provider [...] 1 (one) time each day Active pancrelipase, Zti-Kfzz-Jgim, (Creon) 518[address] units capsule Take 2 capsules by mouth [...] PM EDT) Hemoglobin A1C 7.3(H) (4.0-5.6) % [facility] Comment: MONITORING: In known diabetic patients, hemoglobin A1c targets should be discussed with health care provider. DIAGNOSTIC USE: The [place] [employer] Association (ADA) and the World [...] Supplement 1 Testing performed or reported by [facility], a Service of [facility], [address] [place] [address] Morales Mohamud MD, Ortho Nurse [facility]# [id number] Blood specimen (specimen) Venous blood / Unknown 04/04/2023 2:09 PM EDT 04/04/2023 2:12 PM EDT Cezar [facility] BLOOD ORDERABLES Final Re sult [facility] from Last 3 Months or Most Recently Relevant to Health Maintenance Insurance [place]
--- OUTSIDE RECORDS SUMMARY | 2025-09-20 08:22 | XMS_ITS | Encounter Summary ---
Author Organization [facility] Address [address] [place] [address] Phone Care Team Providers Care Ice Cream Mixer Name Role Phone Unavailable Primary Care Provider Unavailabl e Encounter Details Date Type Department Care Team (Late st Contact Info) Description 11/18/2021 Documentation Only [facility] [place], [address] [place] [address] Reji Almeida MD [address] [place] [place] [address] Social History Tobacco Use Types [...]
--- OUTSIDE RECORDS SUMMARY | 2025-09-20 08:22 | XMS_ITS | Encounter Summary ---
Author Organization [facility] Address [address] [place] [address] Phone Care Team Providers Care Principal Software Engineer Name Role Phone Unavailable Primary Care Provider Unavailabl e Encounter Details Date Type Department Care Team (Late st Contact Info) Description 01/01/2025 Documentation Only [facility] [place], [address] [place] [address] Gloria CarrilloLITTLE AMERICA, [place] [address] [place] [address] Social History Tobacco Use Types [...]
--- OUTSIDE RECORDS SUMMARY | 2025-09-20 08:22 | XMS_ITS | Encounter Summary ---
Author Organization [employer] Address 75 [facility] 7t [place] [address] Care Team Providers Care Manager Of Sales Name Role Phone Trinidad Briceño DO Primary Care Provider Velasquez York PharmD Unavailable Unavail able Sola Isidro PharmD Unavailable [phone] Encounter Details Date Type Department Care Team ([facility] Contact Info) Description 04/12/2023 Telephone [facility] MEDICINE [address] [place] [address] Trinidad Briceño DO [address] [place] [address] Social History Tobacco Use Types Packs/Day Years [...] Description 11/03/2025 10:30 AM EST Medication Management [facility] MEDICINE [address] [place] [address] Sola Isidro PharmD [address] [place] [address] 12/31/2025 10:30 AM EST Office Visit [facility] OPTOMETRY [address] [place] [address] Shyanne Moseley, OD [address] [place] [address] documented as of this encounter Goals Goal Patient Goal Type Associated Problems Recent Progress Patient-Stated? Author Hemoglobin A1c < 7 Result Component 7.2(07/23/2025 10:15 AM EDT) No Velasquez York, Rowdy documented as of this encounter Visit Diagnoses Not on filedocumented in this encounter Additional Health Concerns Assessment Noted Time PHQ-9 Depression Total Score: 0 11/18/19 12:28 PM EST documented as of this encounter Care Teams Manager Of Sales Relationship Specialty Start Date End Date Trinidad Briceño DO [address] [place] [address] PCP - General Family Medicine 02/05/14 Velasquez York, PharmD [address] [place] [address] Pharmacist Internal Medicine 12/28/22 08/10/23 Sola Isidro PharmD [address] [place] [address] Pharmacist Internal Medicine 08/11/23 Amber Storm Pc TechnicianLogistics Operations Director 01/25/24 08/27/25 Delfina Mcmillan Pc TechnicianLogistics Operations Director 08/28/25 documented as of this encounter
--- OUTSIDE RECORDS SUMMARY | 2025-09-20 08:22 | XMS_ITS | Clinical Summary ---
Author Organization 175 [facility] Address [address] [place] [address] Phone Care Team Providers Care Purification Director Name Role Phone Physician, Pcp Unknown Primary [...] macular degeneration of both eyes 11/11/2024 Immunizations Immunization Administration Dates Next Due Moderna SARS-CoV-2 COVID-19, [...] Date Last Done Comments Colorectal Cancer Screening: Colonoscopy 1961 Diabetes: Annual GFR (Glomerular Filtration Rate) 1961 Diabetes: Annual Foot Exam 1971 Diabetes: Annual Retina Eye Exam 1971 Hepatitis A Vaccines (1 of 2 - Risk 2-dose series) 1980 Depression Screening 10/30/2024 Social Influencers of Health Screening 11/08/2024 Diabetes: Annual Urine Albumin-Creatinine Ratio (uACR) 11/28/2024 Hypertension/CHF/CAD Annual BMP Blood Test 11/28/2024 Diabetes: Blood Sugar Control Test (HGBA1C) 04/17/2025 10/17/2024, 04/04/2023 COVID-19 Vaccine ( season) 2025 07/18/2024, 09/04/2023, 08/05/2022, Additional history [...] topic Insurance MEDICAID - [place] Care Teams Purification Director Relationship Specialty Start Date End Date Physician, Pcp Unknown PCP - General 11/08/24
--- OUTSIDE RECORDS SUMMARY | 2025-09-20 08:22 | XMS_ITS | Clinical Summary ---
Author Organization [employer] Address [address] [place] [address] Care Team Providers Care Instrument Tester Name Role Phone LiliTrinidad phelps Primary Care Provider [phone] Sola Isidro PharmD Unavailable [phone] Allergies No known active allergies Medications [...] Patient not taking.Reason: Cost, Reported on 05/07/2025 Alcohol Swabs (Alcohol Prep) 70 % padsIndications:T ype 2 diabetes mellitus with stage 3 chronic kidney disease, with long-term current use of insulin, unspecified whether stage 3a or 3b CKD (HCC) USE DIRECTED WITH INSULIN INJECTION 100 each 11 024 Active FreeStyle lancetsIndication s:Type 2 diabetes mellitus with stage 3 chronic kidney disease, with long-term current use of insulin, unspecified whether stage 3a or 3b CKD (HCC) 1 each by Other route 3 times daily. Test blood sugar 3 times daily 100 each 11 024 Active Aspirin Low Dose 81 MG EC tabletIndications :Other hyperlipidemia TAKE 1 TABLET BY MOUTH EVERY MORNING 90 tablet 3 025 Active docusate sodium (Colace) 100 MG capsuleIndication s:Other constipation TAKE 1 CAPSULE BY MOUTH TWICE DAILY IN THE MORNING AND IN THE EVENING 180 capsule 025 Active FeroSul 325 (65 Fe) MG tabletIndications :Anemia, unspecified type TAKE 1 TABLET BY MOUTH EVERY MORNING WITH BREAKFAST 90 tablet 025 Active hydroCHLOROthiazi de (HYDRODiuril) 25 MG [...] NEEDED FOR SHORTNESS OF BREATH 18 g 025 Active cholecalciferol (Vitamin D-3) 25 MCG tablet TAKE 1 TABLET BY MOUTH EVERY MORNING 90 tablet 025 Active omeprazole (PriLOSEC) [address] capsule TAKE 1 CAPSULE BY MOUTH TWICE DAILY IN THE MORNING AND IN THE EVENING BEFORE MEALS 180 capsule 025 Active Continuous Glucose Tire Molder (FreeStyle Delia 3 Ronan) device 1 each 3 times daily. Use [...] 2 DAYS BEFORE SURGERY AND CONTINUE DIRECTED 025 Active Tirzepatide (Mounjaro) 7.5 MG/0.5ML solution auto-injector Inject 7.5 mg under the skin 1 (one) time per week. 2 mL 025 Active Jardiance 25 MGIndications:Typ e 2 diabetes mellitus with stage 3 chronic kidney disease, with long-term current use of insulin, unspecified whether stage 3a or 3b CKD (HCC) TAKE 1 TABLET BY MOUTH EVERY MORNING 30 tablet 025 Active diphenhydrAMINE (BENADryl) 25 MG tablet take 2 tablets by mouth every day at bedtime Active traZODone (Desyrel) 50 MG tablet Take 50 mg by mouth if needed at bedtime. 025 Active ziprasidone (Geodon) 20 MG capsule TAKE 1 CAPSULE BY MOUTH TWICE DAILY IN THE MORNING AND IN THE EVENING WITH FOOD 025 Active insulin glargine (Lantus SoloStar) 100 UNIT/ML penIndications:Ty pe 2 diabetes mellitus with stage 3 chronic kidney disease, with long-term current use of insulin, unspecified whether stage 3a or 3b CKD (HCC) Inject 42 Units under the skin Once per day. 15 mL 5 025 Active glucose blood (FreeStyle Precision Jorge Luis Test) test strip Use to test blood sugar up to 3 times daily, as directed 100 each 11 025 Active BD Pen Needle Radha Ultrafine 32G X 4 MM miscIndications:T ype 2 diabetes mellitus with stage 3 chronic kidney disease, with long-term current use of insulin, unspecified whether stage 3a or 3b CKD (HCC) USE DIRECTED EVERY DAY 100 each 3 025 Active gabapentin (Neurontin) 300 MG capsule Take 1 capsule (300 mg) by mouth 3 times daily. 90 capsule 3 025 Active metFORMIN XR (Glucophage-XR) 500 MG 24 hr tabletIndications :Type 2 diabetes mellitus with stage 3 chronic kidney disease, with long-term current use of insulin, unspecified whether stage 3a or 3b CKD (HCC) Take 1 tablet (500 mg) by mouth with breakfast and with evening meal. Do not crush, chew, or split. 60 tablet 11 025 2025 Active atorvastatin (Lipitor) 80 MG tabletIndications :Type 2 diabetes mellitus with stage 3 chronic kidney disease, with long-term current use of insulin, unspecified whether stage 3a or 3b CKD (HCC),Other hyperlipidemia Take 1 tablet (80 mg) by mouth in the morning. 90 tablet 3 025 Active losartan (Cozaar) 25 MG tabletIndications :Type 2 diabetes mellitus with stage 3 chronic kidney disease, with long-term current use of insulin, unspecified whether stage 3a or 3b CKD (HCC),Essential hypertension,Stag e 3 chronic kidney disease, unspecified whether stage 3a or 3b CKD (CMS/HCC) (HCC) Take 1 tablet (25 mg) by mouth Once per day. 90 tablet 1 025 2025 Active amLODIPine (Norvasc) 10 MG tabletIndications :Hypertension, unspecified type TAKE 1 TABLET BY MOUTH EVERY MORNING 90 tablet 1 025 Active Arnuity Ellipta 100 MCG/ACT inhaler INHALE 1 PUFF BY MOUTH EVERY DAY AT THE SAME TIME RINSE MOUTH AFTER USING 30 each 1 025 Active tamsulosin (Flomax) 0.4 MG 24 hr capsule TAKE 1 CAPSULE BY MOUTH EVERY EVENING 90 capsule 1 Active naltrexone (Depade) 50 MG tablet Take 50 mg by mouth in the morning. Active tamsulosin (Flomax) 0.4 MG 24 hr capsule TAKE 1 CAPSULE BY MOUTH EVERY EVENING 90 capsule 1 025 2024 Discontinued(R eorder (will not trigger [...] use disorder 08/27/2015 History of substance abuse ([facility]) 08/27/2015 Essential hypertension 08/27/2015 Mood disorder 08/27/2015 [...] (09/19/2022): Syphillis Stage 3a chronic kidney disease ([facility]) 04/25/2022 06/11/2024 Encounters Date Type Department Care Team Description 09/12/2025 Orders Only [facility] [address] [place] [address] Trinidad Briceño DO 09/12/2025 Travel 09/05/2025 Travel 09/04/2025 Refill [facility] [address] [place] [address] Trinidad Briceño DO 08/28/2025 Telephone [facility] PEDS [address], [place] [phone] Laura Velásquez 08/23/2025 Refill [facility] [address] [place] [address] Trinidad Briceño DO 08/21/2025 Refill [facility] [address] [place] [address] Trinidad Briceño DO Hypertension, unspecified type 08/19/2025 Orders Only [facility] [address] [place] [address] [place] [address] Trinidad Briceño DO Type 2 diabetes mellitus with stage 3 chronic kidney disease, with long-term current use of insulin, unspecified whether stage 3a or 3b CKD (HCC) (Primary Dx) 08/15/2025 Travel 08/15/[address] [address] Trinidad Briceño DO telephone call; Med Refill 08/14/2025 Travel 07/31/2025 Refill [facility] [address] [place] [address] Trinidad Briceño DO 07/27/2025 Refill [facility] [address] [place] [address] Trinidad Briceño DO Type 2 diabetes mellitus with stage 3 chronic kidney disease, with long-term current use of insulin, unspecified whether stage 3a or 3b CKD (CMS/HCC) 07/23/2025 10:00 AM EDT Office Visit [facility] [place] [address] Trinidad Briceño DO Type 2 diabetes mellitus [...] use disorder; History of tobacco use; Polyarthralgia; Dysphagia, unspecified type; Acute UTI; Healthcare maintenance; Dietary counseling; Exercise counseling; Encounter for immunization 07/23/2025 Travel 07/22/2025 Travel 07/22/2025 Telephone [facility] [place] [address] Trinidad Briceño DO Chart Prep 07/18/2025 Results Follow-Up [address] [address] Sola Isidro PharmD Hepatic Function Panel, Basic Metabolic Panel, Lipid Panel, Standard, Additional followed-up results: 2 07/18/2025 Orders Only [facility] [address] [facility] [place] [address] Trinidad Briceño, 07/11/2025 Travel 07/10/2025 Travel 07/02/2025 Telephone [facility] [address] [facility] [place] [phone] Trinidad Briceño DO Recall Appointment 07/02/2025 Travel 06/22/2025 Refill [facility] [address] [facility], [place] [phone] Trinidad Briceño, 06/22/2025 Refill [facility] [address] [facility] [place] [address] Sola Isidro, PharmD Type 2 diabetes mellitus with stage 3 chronic kidney disease, with long-term current use of insulin, unspecified whether stage 3a or 3b CKD ([facility]) from Last 3 Months Immunizations Immunization Administration Dates Next Due Hep B, adult 08/31/2018, 7,04/17/2017,12/15 Influenza injectable quadriv alent IIV4 with preservative 08/31/2018,07/25/2017,12/15/2016,07/23 Influenza injectable quadriv alent preservative free 09/04/2023,08/05/2022,09/16/2021,08/19 Influenza, IIV3, injectable 07/31/2014 Influenza, seasonal, injecta ble, preservative free 07/23/2025,07/18/2024 Pfizer Covid-19 Vaccine 12+ 08/15/2025,0 07/18/2024,09/04/2023,09/08,03/16/2021,02/23/2021 Pfizer Covid-19 Vaccine 12+ Bivalent 08/05/2022 Pfizer [...] Sign Reading Time Taken Comments Blood Pressure 110/62 09/12/2025 11:34 AM EST Pulse 72 07/23/2025 10:05 AM EDT Temperature [...] Description 11/03/2025 10:30 AM EST Medication Management [facility] [address] [place] [address] Sola Isidro, PharmD [address] [place] [address] 12/31/2025 10:30 AM EST Office Visit [facility] OPTOMETRY [address] [place] [address] Pradip, Shyanne, OD [address] [place] [address] Health Maintenance Due Date Last Done Comments [...] 07/23/2025, 025 Alcohol/Substance Use Screening 01/21/2026 01/21/2025 Lipid Panel 07/18/2026 07/18/2025, 03/31, 04/13/2023, Additional history exists Tobacco Screening 07/23/2026 07/23/2025 Disability Screening 08/14/2026 08/14/2025 Eye Exam 11/12/2026 11/12/2024, 10/30, 11/12/2024, Additional [...] C Screening Completed 04/18/2024 , 04/13/2023, 09/16/2021 Influenza Vaccine Completed 07/23/2025, , 09/04/2023, Additional history exists COVID-19 Vaccine Completed 08/15/2025, , 09/04/2023, Additional history exists HIB Vaccines [...] Component 7.2( 10:15 AM EDT) No Velasquez [place], PharmGiselle Record your blood sugar as directed Result Component No Puia, Sola, PharmD Note: Use CGM, ensuring sensor is scanned at least once every 8 hours to capture 24H data. Check BG manually, as directed. Help patients manage their type 2 diabetes Care Plan Help patients manage their type 2 diabetes No Puia, Sola, PharmD Weekly blood pressure task Care Plan Weekly blood pressure task No Puia, Sola, PharmD Help patients manage their type 2 diabetes Care Plan Help patients manage their type 2 diabetes No Puia, Sola, PharmD Patient has chronic kidney disease Care Plan Patient has chronic kidney disease No Puia, Sola, PharmD Weekly blood pressure task Care Plan Weekly blood pressure task No Puia, Sola, PharmD Patient has chronic kidney disease Care Plan Patient has chronic kidney disease No Puia, Sola, PharmD Weekly blood pressure task Care Plan Weekly blood pressure task No Puia, Sola, PharmD Weekly blood pressure task Care Plan Weekly blood pressure task No Puia, Sola, PharmD Patient has chronic kidney disease Care Plan Patient has chronic kidney disease No Puia, Sola, PharmD Patient has chronic kidney disease Care Plan Patient has chronic kidney disease No Puia, Sola, PharmD Procedures Procedure Name Priority Date/Time Associated Diagnosis Comments BASIC METABOLIC PANEL Routine 09/12/2025 12:10 PM EST CULTURE, URINE, ROUTINE Routine 07/23/2025 10:55 AM EDT Acute UTI POCT URINALYSIS DIPSTICK Routine 07/23/2025 10:53 AM EDT Acute UTI POCT GLYCATED HEMOGLOBIN, TOTAL Routine 07/23/2025 10:15 AM EDT Type 2 diabetes mellitus with stage 3 chronic kidney disease, with long-term current use of insulin, unspecified whether stage 3a or 3b CKD (CMS/HCC) POCT GLUCOSE Routine 07/23/2025 10:14 AM EDT Type 2 diabetes mellitus with stage 3 chronic kidney disease, with long-term current use of insulin, unspecified whether stage 3a or 3b CKD (CMS/HCC) ALBUMIN, RANDOM URINE W/CREATININE Routine 07/18/2025 8:10 AM EDT PSA, TOTAL WITH REFLEX TO PSA, FREE Routine 07/18/2025 8:10 AM EDT LIPID PANEL, STANDARD Routine 07/18/2025 8:10 AM EDT BASIC METABOLIC PANEL Routine 07/18/2025 8:10 AM EDT HEPATIC FUNCTION PANEL Routine 07/18/2025 8:10 AM EDT HEPATITIS C AB W/REFL TO HCV RNA, QN, PCR Routine 04/18/2024 8:14 AM EDT Healthcare maintenance HIV 1/2 ANTIGEN/ANTIBODY, FOURTH GENERATION W/RFL Routine 04/18/2024 8:14 AM EDT Healthcare maintenance HM COLONOSCOPY Routine 05/26/2015 8:41 AM EDT from Last 3 Months or Most Recently Relevant to Health Maintenance Results * (ABNORMAL) Basic Metabolic Panel (09/12/2025 12:10 PM EST) Only the most recent of2 resultswithin the time period is included. Sodium 143 135 - 145 mmol/L [facility] Potassium 3.5 3.3 - 5.1 mmol/L [facility] Chloride 106 96 - 108 mmol/L [facility] Carbon Dioxide 30(H) 22 - 29 mmol/L [facility] Anion Gap 11(L) 12 - 20 [facility] Urea Nitrogen (BUN) 15 9 - 16 mg/dL [facility] Creatinine, Serum 1.02 0.5 - 1.4 mg/dL [facility] Estimated Glomerular Filt Rate >60 [facility] Comment:Chronic Kidney Disea se: Estimated GFR < 60 mL/min/1.45m2Eyobyk Kidney Disease: Estimated GFR < 15 mL/min/1.73m2 Glucose 179(H) 60 - 115 mg/dL [facility] Calcium 9.7 8.4 - 10.2 mg/dL [facility] 09/12/2025 12:1 0 PM EST 09/12/2025 1:36 PM EST us Trinidad Briceño DO LAB BLOOD ORDERABLES Final R esult Performing Organization Address [facility]/ZIP Co de Phone Number [facility] [address] [place] [phone] * Culture, Urine, Routine (07/23/2025 10:55 AM EDT) Urine Urine specimen obtained by clean catch procedure / Unknown 07/23/2025 10:55 AM EDT 07/23/2025 4:03 PM EDT Comment:UACC Narrative [facility] - 07/25/2025 9:00 AM EDT Urine Culture No growth. Specimen Source: Urine clean catch us Trinidad Briceño DO LAB MICROBIOLOGY - GENERAL O RDERABLES Final Result Performing Organization Address City/[facility]/ZIP Co de Phone Number [facility] [address] [place] [phone] * POCT Urinalysis (07/23/2025 10:53 AM EDT) [...] POCT Hgb A1c (07/23/2025 10:15 AM EDT) Pathologist [facility] Hemoglobin A1C 7.2(A) 4.0 - 5.7 % QC Media Lot # [id number] Lot# Expiration Date Blood 07/23/2025 10:1 5 AM EDT Trinidad Briceño POINT OF CARE TEST ENTER/PAWEL T ORDERABLES Final Result * (ABNORMAL) POCT Glucose (07/23/2025 10:14 AM EDT) Pathologist [facility] Glucose Blood, POC 253(A) 60 - 200 mg/dL Comment:Random QC Media Lot # [id number] Lot# Expiration Date 216, Blood Capillary blood specimen / Unknown 07/23/2025 10:14 AM EDT Trinidad Briceño POINT OF CARE TEST ENTER/PAWEL T ORDERABLES Final Result * PSA, Total With Reflex to PSA, Free (07/18/2025 8:10 AM EDT) PSA,Total (Free>4and<10) 0.83 0.00 - 4.00 ng/mL [facility] Comment:A Free PSA was not p [...] AM EDT 07/18/2025 11:19 AM EDT [facility] BLO[facility] ORDERABLES Final R esult Performing Organization Address [facility] Co de Phone Number [facility] [address] [place] [phone] * (ABNORMAL) Albumin, Random Urine W/Creatinine (07/18/2025 8:10 AM EDT) Creatinine, Urine 125.67 mg/dL [facility] Microalbumin Urine 48.0 mg/L [facility] Microalbum Creatinine Ratio Ur 38.1(H) <30 ug/mg cr [facility] Comment:Albumin/Creatinine R at Reference Ranges: Normal: < 30 ug/mg creatinine Microalbuminuria: 30 - 300 ug/mg creatinineClinical Albuminuria: > 300 ug/mg creatinine 07/18/2025 8:10 AM EDT 07/18/2025 11:36 AM EDT Trinidad Briceño LAB URINE ORDERABLES Final R esult Performing Organization Address [facility] Co de Phone Number [facility] [address] [place] [phone] * (ABNORMAL) Hepatic Function Panel (07/18/2025 8:10 AM EDT) Bilirubin, Total 1.1(H) 0.0 - 1.0 mg/dL [facility] Bilirubin, Direct 0.3 0.0 - 0.5 mg/dL [facility] Aspartate Amino Transferase 34 5 - 37 U/L [facility] Alanine Aminotransferase 31 0 - 40 U/L [facility] Total Protein 8.4(H) 6.5 - 8.0 g/dL [facility] Albumin Level 4.7 3.5 - 5.0 g/dL [facility] Alkaline Phosphatase 60 39 - 117 U/L [facility] 07/18/2025 8:10 AM EDT 07/18/2025 11:19 AM EDT Trinidad Briceño DO LAB BLOOD ORDERABLES Final R esult Performing Organization Address [facility] de Phone Number [facility] [address] [place] [phone] * (ABNORMAL) Lipid Panel, Standard (07/18/2025 8:10 AM EDT) Triglycerides 162(H) <150 mg/dL [facility] Comment:Desirable Triglyceri de: less than 150 mg/dLBorderline High Triglyceride 150-199 mg/dLHigh Triglyceride: 200-499 mg/dLVery High Triglyceride: greater than or equal to 5OO mg/dL Cholesterol 212(H) <200 mg/dL [facility] Comment:Desirable Cholestero l: less than 200 mg/dLBorderline High Cholesterol: 200-239 mg/dLHigh Cholesterol: greater than 239 mg/dL LDL Cholesterol Calculated 140(H) <100 mg/dL [facility] Comment:Desirable LDL: less than 100 mg/dLNear Optimal/Above Optimal LDL: 110- 129 mg/dLBorderline High LDL: 130-159 mg/dLHigh LDL: 160-189 mg/dLVery High LDL: greater than or equal to 190 mg/dL HDL Cholesterol 40(L) >40 mg/dL [facility] Comment:Desirable HDL: great er than 40 mg/dL Note: This HDL assay may give artificially low results in patients with liver disease. 07/18/2025 8:10 AM EDT 07/18/2025 11:19 AM EDT Trinidad Briceño DO LAB BLOOD ORDERABLES Final R esult Performing Organization Address City/[facility] Co de Phone Number [facility] [address] [place] [address] [phone] * Hepatitis C Antibody with Reflex to HCV, RNA, Quantitative, Real-Time PCR (04/18/2024 8:14 AM EDT) Hepatitis C Antibody Nonreactive Nonreactive [facility] Comment:Antibodies to HCV no t detected; does not exclude early acuteHCV infection. Blood Venous blood specimen / Unknown 04/18/2024 8:14 AM EDT 04/18/2024 11:34 AM EDT Trinidad Briceño DO LAB BLOOD ORDERABLES Final R esult Performing Organization Address [facility] Co de Phone Number [facility] [address] [place] [address] [phone] * HIV-1/2 Antigen and Antibodies, Fourth Generation, with Reflexes (04/18/2024 8:14 AM EDT) Pathologist [facility] HIV AB/AG Nonreactive Nonreactive [facility] Comment:HIV-1 p24 Ag and/or HIV-1/HIV-2 Ab not detected.A test result that is nonreactive does not exclude thepossibility of exposure to or infection with HIV-1 and/orHIV-2. Nonreactive results in this assay for individualswith prior exposure to HIV-1 and/or HIV-2 may be due toantigen and antibody levels that are below the limit ofdetection of this assay.The [facility] HIV Ag/Ab Combo assay result andsupplemental assay results should be interpreted inconjunction with the patient's clinical presentation,history and other laboratory results. If the results areinconsistent with clinical evidence, additional testing issuggested to confirm the result. Blood Venous blood specimen / Unknown 04/18/2024 8:14 AM EDT 04/18/2024 11:34 AM EDT us Trinidad Briceño DO LAB BLOOD ORDERABLES Final R esult Performing Organization Address City/[facility]/ZIP Co de Phone Number [facility] [address] [place] [phone] [phone] * Hm Colonoscopy (05/26/2015 8:41 AM EDT) us Historical Provider MD HEALTH MAINTENANCE Final Result from Last 3 Months or Most Recently Relevant to Health Maintenance Additional Health Concerns Active Problems Noted Date Diagnosed Date Help patients manage their type 2 diabetes 09/11 Weekly blood pressure task 09/11/2025 Help patients manage their type 2 diabetes 09/11 Patient has chronic kidney disease 09/11/2025 Weekly blood pressure task 09/11/2025 Patient has chronic kidney disease 09/11/2025 Weekly blood pressure task 09/12/2025 Weekly blood pressure task 09/12/2025 Patient has chronic kidney disease 09/12/2025 Patient has chronic kidney disease 09/12/2025 Insurance [facility] C3 Care Teams Instrument Tester Relationship Specialty Start Date End Date Trinidad Briceño DO [address] [place], [place] [phone] PCP - General Family Medicine 02/05/14 Sola Isidro PharmD [address], [place] [phone] Pharmacist Internal Medicine 08/11/23 Delfina Mcmillan Machine I EngraverScaffolder 08/28/25
== END 2025-09-20 08:20 | disposition home or self-care (01) ==
LOC: HO.CT 08:19
PROVIDERS: PCP Family Medicine; Visit Provider Physician Assistant Medical
DX: Z12.2 Encounter for screening for malignant neoplasm of respiratory organs (principal); Z87.891 Personal history of nicotine dependence
CPT/HCPCS: 71271

== ENCOUNTER → 2025-09-20 08:21 | Outpatient (BNV) | payer MEDICAID, SELFPAY | PROVIDERS: PCP Family Medicine; Visit Provider Radiology Diagnostic Radiology | DX: Z12.2 Encounter for screening for malignant neoplasm of respiratory organs (principal); Z87.891 Personal history of nicotine dependence | CPT/HCPCS: 71271 ==